=== PATIENT | male | born 1945 | race Caucasian/White ===

== ENCOUNTER 2019-02-18 21:53 | Emergency (ER) | payer OTHER ==
[~2019-02-18] VITALS: Ht 177.8 cm; Wt 81.6 kg
[2019-02-18 22:11] VITALS: BP 125/65
== END 2019-02-19 02:13 | disposition left against medical advice (07) ==
LOC: ER 22:00
DX: R05 Cough (principal); Z53.21 Procedure and treatment not carried out due to patient leaving prior to being seen by health care provider

== ENCOUNTER 2019-09-05 15:52 | Emergency (ER) | payer OTHER ==
[~2019-09-05] VITALS: Ht 177.8 cm; Wt 79.4 kg
[2019-09-05 17:30] VITALS: BP 134/76
[2019-09-05] MEDS ORDERED: methylPREDNISolone SOD SUCC 125 MG/2 ML VL IM ONE (17:30)
== END 2019-09-05 17:53 | disposition home or self-care (01) ==
LOC: ER 15:52
DX: M48.02 Spinal stenosis, cervical region (principal); M54.12 Radiculopathy, cervical region; F17.210 Nicotine dependence, cigarettes, uncomplicated
CPT/HCPCS: 72040; 96372; 99283; J2930

== ENCOUNTER 2019-10-29 19:18 | Inpatient (IN) | payer OTHER ==
[~2019-10-29] VITALS: Ht 175.3 cm; Wt 90.3 kg
[2019-10-29] MEDS ORDERED: SODIUM CHLORIDE 0.9% 500 ML IVB ONE (19:28)
[2019-10-29 19:56] LABS: Basophils # (auto) 0.1 10 ^3/uL (0-0.2); Basophils % (auto) 0.6 % (0.0-2.0); Eosinophils # (auto) 0.5 10 ^3/uL (0-0.8); Eosinophils % (auto) 5.2 % (0.0-7.0); Hematocrit 39.6 % (41.0-53.0); Hemoglobin 13.2 g/dL (13.5-17.5); Lymphocytes # (auto) 1.5 10 ^3/uL (0.4-5.4); Mean Corpuscular Hemoglobin 32.1 pg (28.0-32.0); Mean Corpuscular Hgb Conc. 33.3 g/dL (32.0-36.0); Mean Corpuscular Volume 96.5 fL (80.0-100.0); Monocytes # (auto) 0.8 10 ^3/uL (0-1.3); Monocytes % (auto) 8.1 % (0.0-12.0); Neutrophils # (auto) 6.7 10 ^3/uL (1.6-8.6); Neutrophils % (auto) 70.1 % (37.0-80.0); Platelet Count (auto) 259 10^3/uL (140-450); Red Cell Distribution Width 13.9 % (11.8-14.3); White Blood Cell 9.6 10^3/uL (4.4-10.8)
[2019-10-29 20:15] LABS: Alanine Aminotransferase 21 U/L (16-61); Albumin 3.4 g/dL (3.4-5.0); Anion Gap 4 (5-15); Aspartate Aminotransferase 18 U/L (15-37); BUN/Creatinine Ratio 25.5; Blood Alcohol < 3.0 mg/dL (0-5); Blood Urea Nitrogen 28 mg/dL (7-18); Calcium 8.9 mg/dL (8.5-10.1); Carbon Dioxide 30 mmol/L (21-32); Chloride 109 mmol/L (98-107); GFR African American 84 mL/min; GFR Non-African American 70 mL/min; Glucose 95 mg/dL (74-106); Magnesium 1.8 mg/dL (1.6-2.6); Potassium 4.4 mmol/L (3.5-5.1); Sodium 143 mmol/L (136-145)
[2019-10-29 20:20] LABS: Alkaline Phosphatase 98 U/L (45-117); Bilirubin, Total 0.5 mg/dL (0.2-1.0); Total Protein 7.1 g/dL (6.4-8.2)
[2019-10-29] MEDS ORDERED: NITROGLYCERIN 0.4 MG SL TAB SL PRN (21:30)
[2019-10-29] MEDS ORDERED: MORPHINE SULF INJ 2 MG/ML SYRINGE 1ML IV PRN (21:30)
[2019-10-29] MEDS: SODIUM CHLORIDE 0.9% 1,000 ML IV SCH (21:30)
[2019-10-29] MEDS ORDERED: ONDANSETRON HCL 4 MG/2 ML VIAL IV PRN (21:30)
[2019-10-29 21:51] VITALS: BP 146/52
[2019-10-29] MEDS: FAMOTIDINE 20 MG TAB PO SCH (22:12)
[2019-10-29 22:43] LABS: Urine Bacteria NONE SEEN /hpf (None Seen); Urine Blood Negative /uL (Negative); Urine Specific Gravity 1.025 (1.001-1.035); Urine WBC <1 /hpf (0 - 3)
--- NOTE | 2019-10-29 22:51 | NUR ---
Telemetry admit from ER VILLAREALMOI Baker admitted to Telemetry unit after SBAR received. Patient oriented to Bridgett Chaudhary, primary RN, unit, room, bed, and unit policies regarding patient care and visiting hours. Patient now on continuous telemetry monitoring, tele box # [id number] and telemetry reading on arrival to unit is . Patient placed on bedside oxygen, weighed by bedscale and encouraged to call if they need something. All questions and concerns addressed, patien confused. Note:
[2019-10-29 22:56] LABS: Alcohol, Urine < 3.0 mg/dL (0-10); Amphetamine Screen, Urine NEGATIVE (NEGATIVE); Barbiturate Scree,Urine NEGATIVE (NEGATIVE); Benzodiazephine Screen, Urine NEGATIVE (NEGATIVE); Cannabinoid Screen, Urine NEGATIVE (NEGATIVE); Cocaine Screen, Urine NEGATIVE (NEGATIVE); Opiate Scree,Urine NEGATIVE (NEGATIVE); Phencyclidine Screen, Urine NEGATIVE (NEGATIVE)
[2019-10-30 05:04] VITALS: BP 120/78
[2019-10-30 07:29] LABS: BUN/Creatinine Ratio 30.9; Calcium 8.2 mg/dL (8.5-10.1); Potassium 3.7 mmol/L (3.5-5.1)
--- NOTE | 2019-10-30 07:30 | NUR ---
Opening Shift Note Assumed care of patient, awake and alert. No S/S of distress/SOB or pain. Instructed on POC and to call for assistance bed at lowest height and bed rails up x2 patient with sitter PRN, will continue to monitor for changes Q1hr and PRN.
[2019-10-30 08:30] VITALS: BP 129/65
[2019-10-30] MEDS: FAMOTIDINE 20 MG TAB PO SCH ×2 (10:07→21:36)
[2019-10-30] MEDS: SODIUM CHLORIDE 0.9% 1,000 ML IV SCH (10:59)
[2019-10-30 14:30] VITALS: BP 131/79
--- NOTE | 2019-10-30 15:24 | NUR ---
THE ORTHOPEDICS PEDIATRIC PHYSICIAN CALLED AND STATED THAT A MISS[facility]ERSONS REPORT WAS FILED ON THE PATIENT. I INFORMED THEM THAT THE PATIENT IS HERE AT [facility]. ALSO INFORMED THE ORTHOPEDICS PEDIATRIC PHYSICIAN THAT HE WAS FOUND ALTERED AND BROUGHT TO THE HOSPITAL.
--- NOTE | 2019-10-30 15:30 | NUR ---
Sister Naida telephone number . Naida states that [facility] CVA. She [facility] because she can no longer take care of him. Sister states that the patient is combative with her and her .
[2019-10-30 16:45] LABS: INR 1.03 (0.9-1.15); Partial Thromboplastin Time 30.3 sec (23.0-31.2)
[2019-10-30 17:08] VITALS: BP 124/73
[2019-10-30 22:30] VITALS: BP 134/69
[2019-10-31] MEDS: SODIUM CHLORIDE 0.9% 1,000 ML IV SCH ×2 (00:10→13:12)
[2019-10-31 05:07] VITALS: BP 138/74
--- NOTE | 2019-10-31 07:28 | NUR ---
Opening Shift Note Received report on the patient. Awake lying in bed. Patient shows no signs of distress at this time. Discussed plan of care with the patient. Bed in lowest position, side rails up x2, and the call light is within reach.
[2019-10-31 09:00] VITALS: BP 131/70
[2019-10-31] MEDS: FAMOTIDINE 20 MG TAB PO SCH ×2 (09:56→21:26)
--- NOTE | 2019-10-31 10:23 | NUR ---
Dr Weiner at bedside. New orders received.
[2019-10-31 12:33] VITALS: BP 128/66
[2019-10-31] MEDS ORDERED: amLODIPine BESYLATE 5 MG TAB PO ONE (13:45)
[2019-10-31] MEDS ORDERED: ASPirin 81 mg TAB PO ONE (13:45)
[2019-10-31] MEDS ORDERED: LACTULOSE 20Gm/30ML SOLN PO ONE (13:45)
[2019-10-31 16:50] VITALS: BP 122/70
--- NOTE | 2019-10-31 19:25 | NUR ---
Opening Shift Note Assumed care of patient, AOX1. Sitter at bedside for safety. Fall and safety precautions in place. Call light within reach. No S/S of distress/SOB/pain. Instructed on POC and to call for assist PRN, reinforcement needed. Will continue to monitor for changes Q1hr and PRN.
[2019-10-31 21:10] VITALS: BP 130/74
[2019-10-31] MEDS: ATORVASTATIN 20 MG TAB PO SCH (21:25)
[2019-10-31] MEDS: HYDROcodone-ACET 5/325MG TAB PO PRN (23:44)
[2019-11-01 04:51] VITALS: BP 131/70
--- NOTE | 2019-11-01 06:50 | NUR ---
PT REMOVED IV NOTIFIED BY SITTER THAT PATIENT REMOVED IV BY PULLING IT OUT AT THIS TIME. CATHETER FULLY INTACT. MINIMAL BLEEDING AT SITE, PRESSURE DRESSING APPLIED AND EDUCATED PATIENT TO MAINTAIN PRESSURE DRESSING. ATTEMPTED AND REATTEMPTED TO START NEW IV ACCESS AT THIS TIME. PATIENT BEING VERBALLY ABUSIVE AND REFUSING. PATIENT WITHDRAWING AND COVERING HIS HEAD WITH BLANKETS. PATIENT EDUCATION REINFORCED ON INDICATION/IMPORTANCE OF IV ACCESS, PATIENT CONTINUES TO REFUSE AND BE VERBALLY ABUSIVE. WILL NOTIFY DAY SHIFT RN.
--- NOTE | 2019-11-01 08:51 | NUR ---
PATIENT IS REFUSING IV. WILL TRY AGAIN LATER
[2019-11-01] MEDS: ASPirin 81 mg TAB PO SCH (10:00)
[2019-11-01] MEDS: amLODIPine BESYLATE 5 MG TAB PO SCH (10:00)
[2019-11-01] MEDS: FAMOTIDINE 20 MG TAB PO SCH ×2 (10:00→21:22)
--- NOTE | 2019-11-01 12:59 | NUR ---
Nutrition Assessment Notes Please refer to link for full assessment notes. Est Energy needs: 3163-1154 kcals (20-23 kcal/kgBW) Est Protein needs: 86-95 gms/day (1.0-1.1 gm/kgBW) Will continue to monitor and reassess prn. Addendum: 11/01/19 at [address] Amended: Links added.
[2019-11-01 14:10] VITALS: BP 119/71
[2019-11-01] MEDS: HYDROcodone-ACET 5/325MG TAB PO PRN (15:18)
[2019-11-01 16:39] VITALS: BP 130/71
--- NOTE | 2019-11-01 19:40 | NUR ---
Opening Shift Note Assumed care of patient, AOX1. Patient resistive to care and withdrawn from interactions. Patient refusing IV access despite reinforced education on indication/importance of IV acces. Patient continues to refuse. Patient off tele. Patient sticker replaced and patient now on continuous telemetry monitoring. Sitter at bedside for safety. Fall and safety precautions in place. Call light within reach. No S/S of distress/SOB/pain. Instructed on POC and to call for assist PRN, reinforcement needed. Will continue to monitor for changes Q1hr and PRN.
--- NOTE | 2019-11-01 21:20 | NUR ---
TEMP PATIENT'S ORAL TEMPERATURE 100.6 F. TEMPERATURE IN ROOM IS 78 F. PATIENT COVERED IN MULTIPLE BLANKETS. COOLING MEASURES INITIATED. PATIENT EDUCATED ON INDICATION FOR COOLING MEASURES. WILL CONTINUE TO MONITOR.
[2019-11-01] MEDS: ATORVASTATIN 20 MG TAB PO SCH (21:22)
--- NOTE | 2019-11-01 21:41 | NUR ---
PATIENTS TEMPERATURE IS 100.6 AND COMPLAINING OF A HEADACHE. RN WAS NOTIFIED
[2019-11-01 22:00] VITALS: BP 118/66
[2019-11-01 22:20] VITALS: BP 118/66
--- NOTE | 2019-11-01 22:20 | NUR ---
TEMP RECHECK PATIENT'S ORAL TEMP NOW 98.2 F. BIODIESEL PROCESS CONTROL TECHNICIAN REPORTED THAT PATIENT REPORTED A HEADACHE. HOWEVER, PATIENT WORDS ARE UNCLEAR AND GARBLED AND IS NOT REPORTING A HEADACHE OR PAIN AT THIS TIME. MASTERSON-BUSBY SCORE 0. WILL CONTINUE TO MONITOR.
[2019-11-02 05:00] VITALS: BP 127/70
[2019-11-02 08:00] VITALS: BP 128/66
--- NOTE | 2019-11-02 08:36 | NUR ---
PATIENT REFUSING IV,EDUCATED PATIENT ON RISKS OF NO IV ACCESS. WILL CONTINUE TO MONITOR AND REASSESS PATIENT
[2019-11-02] MEDS: amLODIPine BESYLATE 5 MG TAB PO SCH (08:42)
[2019-11-02] MEDS: ASPirin 81 mg TAB PO SCH (08:42)
[2019-11-02] MEDS: FAMOTIDINE 20 MG TAB PO SCH ×2 (08:42→22:55)
[2019-11-02 09:00] VITALS: BP 153/78
--- NOTE | 2019-11-02 12:41 | NUR ---
I faxed transfer order to [facility].
[2019-11-02 13:00] VITALS: BP 128/64
--- NOTE | 2019-11-02 13:15 | NUR ---
TELEBOX SENT TO ICU TELEBOX REMOVED CLEANED AND SENT TO ICU, JUDGE NOTIFIED
--- NOTE | 2019-11-02 14:24 | NUR ---
I called the [facility] and spoke with Nayely, he said they did receive the transfer order but do not have any beds available at this time. Nayely is aware that patient is now med/surg status and no longer on telemetry. I made Dr. Weiner aware that there are no beds available today.
[2019-11-02 17:00] VITALS: BP 143/69
[2019-11-02] MEDS: ACETAMINOPHEN 325 MG TAB PO PRN ×2 (18:22→18:34)
--- NOTE | 2019-11-02 19:00 | NUR ---
Opening Shift Note Assumed care of patient, awake and alert. No S/S of distress/SOB or pain. Instructed on POC and to callfor assist PRN, will continue to monitor for changes Q1hr and PRN.
[2019-11-02 22:00] VITALS: BP 127/71
[2019-11-02] MEDS: ATORVASTATIN 20 MG TAB PO SCH (22:55)
--- NOTE | 2019-11-03 05:30 | NUR ---
CURSING AND YELLING PATIENT WAS CURSING AND YELLING AT [facility]. HE HAD BEEN IN A GOOD MOOD ALL NIGHT UNTIL 0530.I HELPED [facility] CHANGE THE BED. PATIENT TRIED TO HIT ME 1 TIME. I EXPLAINED THAT WE WERE GOING TO CHANGE THE BED AND COULD HE PLEASE HELP US? HE TRIED TO HELP SOME. WE GOT HIS CHANGED, COMFORTABLE, AND COVERED UP.
[2019-11-03 08:50] VITALS: BP 118/63
--- NOTE | 2019-11-03 09:00 | NUR ---
PT RESPONDED FAVORABLY TO ASSESSMENT. SPEECH IS SLURRED. DIFFICULT TO UNDERSTAND. ALLOWS V/S TAKEN.
--- NOTE | 2019-11-03 10:00 | NUR ---
REFUSES TO TAKE MEDS.
[2019-11-03] MEDS ORDERED: HALOPERIDOL 1 MG TAB PO PRN (10:15)
--- NOTE | 2019-11-03 11:41 | NUR ---
I called the [facility] and spoke with Cyrus regarding bed availability. He said they may have some beds available-he requested today's clinical information to be faxed to him-faxed today's vitals and medication list. I provided him with contact information for Dr. Weiner as well as letting her know that they may be contacting her. Per Cyrus he will present the information to his MD and will give me a call back.
[2019-11-03] MEDS ORDERED: LACTULOSE 20Gm/30ML SOLN PO ONE (13:00)
--- NOTE | 2019-11-03 15:40 | NUR ---
I called [facility] [phone] and spoke with Cyrus, patient will be going to [address] [facility], nurse to call report to [phone] extension [phone], accepting MD is Dr. Mccord-[facility] setting up transportation through [facility]-pick up and delivery driver time 430-5pm-I relayed this information to charge nurse Tala as well as Dr. Weiner.
--- NOTE | 2019-11-03 15:49 | NUR ---
I received a call from Cyrus at the [facility] ([phone])-he said [facility] ([phone]) will be here at 1645 to transport to [facility].
[2019-11-04] MEDS ORDERED: LACTULOSE 20Gm/30ML SOLN PO SCH (10:00)
== END 2019-11-03 17:20 | disposition short-term general hospital (02) | DRG 93 ==
LOC: EDBD 19:18 → ER 19:18 → TELE 19:19 → TELE-WESTW 22:45 → WEST WING 11-02 14:40
PROVIDERS: ADMIT Nurse Practitioner; ATTEND Internal Medicine
DX: G92 Toxic encephalopathy (principal); E86.0 Dehydration; F17.210 Nicotine dependence, cigarettes, uncomplicated; N40.0 Benign prostatic hyperplasia without lower urinary tract symptoms; M47.9 Spondylosis, unspecified; M48.061 Spinal stenosis, lumbar region without neurogenic claudication; M47.896 Other spondylosis, lumbar region; M25.551 Pain in right hip; I10 Essential (primary) hypertension; Z91.19 Patient's noncompliance with other medical treatment and regimen; Z95.0 Presence of cardiac pacemaker; Z59.0 Homelessness; Z86.73 Personal history of transient ischemic attack (TIA), and cerebral infarction without residual deficits
CPT/HCPCS: 36415; 70450; 71045; 71250; 72131; 73502; 80048; 80053; 80307; 80320; 81001; 82140; 83735; 84484; 85025; 85610; 85730; 96360; 96361; G0378

== ENCOUNTER 2023-02-02 14:44 | Inpatient (IN) | payer OTHER ==
[~2023-02-02] VITALS: Ht 170.2 cm; Wt 76.9 kg
[2023-02-02] MEDS ORDERED: PIPERACILLIN-TAZOB 3.375GM 100 ML IV ONE ×2 (15:15→15:57)
[2023-02-02] MEDS ORDERED: SODIUM CHLORIDE 0.9% 1,000 ML IV ONE (15:15)
[2023-02-02 15:33] LABS: Basophils # (auto) 0.1 10 ^3/uL (0-0.2); Basophils % (auto) 1.2 % (0.0-2.0); Eosinophils # (auto) 0.4 10 ^3/uL (0-0.8); Eosinophils % (auto) 5.4 % (0.0-7.0); Hematocrit 38.6 % (41.0-53.0); Hemoglobin 12.8 g/dL (13.5-17.5); Lymphocytes # (auto) 1.2 10 ^3/uL (0.4-5.4); Lymphocytes % (auto) 15.7 % (10.0-50.0); Mean Corpuscular Hemoglobin 31.3 pg (28.0-32.0); Mean Corpuscular Hgb Conc. 33.2 g/dL (32.0-36.0); Mean Corpuscular Volume 94.3 fL (80.0-100.0); Monocytes # (auto) 0.8 10 ^3/uL (0-1.3); Monocytes % (auto) 10.6 % (0.0-12.0); Neutrophils # (auto) 5.2 10 ^3/uL (1.6-8.6); Neutrophils % (auto) 67.1 % (37.0-80.0); Nucleated Red Blood Cells % 0.2 %; Red Blood Cells 4.09 10^6/uL (4.5-5.90); Red Cell Distribution Width 13.1 % (11.8-14.3); White Blood Cell 7.8 10^3/uL (4.4-10.8)
[2023-02-02 15:45] LABS: Magnesium 1.8 mg/dL (1.6-2.6)
[2023-02-02 15:47] LABS: Alanine Aminotransferase 10 U/L (7-40); Albumin 4.2 g/dL (3.2-4.8); Alkaline Phosphatase 97 U/L (46-116); Anion Gap 8 (5-15); Aspartate Aminotransferase 23 U/L (13-40); BUN/Creatinine Ratio 13.3 (10.0-20.0); Blood Urea Nitrogen 18 mg/dL (9-23); Calcium 9.1 mg/dL (8.5-10.1); Carbon Dioxide 26 mmol/L (20-30); Chloride 105 mmol/L (98-107); Glucose 110 mg/dL (74-106); Potassium 4.2 mmol/L (3.5-5.1); Sodium 139 mmol/L (136-145)
[2023-02-02 15:48] LABS: Bilirubin, Total 0.5 mg/dL (0.2-1.0); Total Protein 7.5 g/dL (5.7-8.2)
[2023-02-02 16:24] VITALS: PULSE 69; RESP 15; O2SAT 99
[2023-02-02 20:15] VITALS: PULSE 65; RESP 14; O2SAT 95
[2023-02-02 22:53] LABS: Urine Bacteria NONE SEEN /hpf (None Seen); Urine Blood Negative /uL (Negative); Urine Clarity Clear (Clear); Urine Color Yellow (Yellow); Urine Protein, UAD TRACE (Negative); Urine Specific Gravity 1.026 (1.001-1.035); Urine Urobilinogen Normal (Negative); Urine WBC 2 /hpf (0 - 3); Urine pH 5.5 (5.0-8.0)
[2023-02-02] MEDS ORDERED: TETANUS-DIPTH-ACEL PERTUSSIS 0.5ML SYR Tdap IM ONE (23:00)
[2023-02-03] MEDS ORDERED: LACTATED RINGER'S 1,000 ML IV ONE
[2023-02-03] MEDS ORDERED: ACETAMINOPHEN 325 MG TAB PO PRN
[2023-02-03] MEDS ORDERED: DOCUSATE SOD 100 MG CAP PO PRN
[2023-02-03] MEDS ORDERED: ONDANSETRON HCL 4 MG/2 ML VIAL IV PRN
[2023-02-03] MEDS ORDERED: HYDROcodone-ACET 5/325MG TAB PO PRN
[2023-02-03 05:00] VITALS: BP 129/80; PULSE 61; RESP 14; TEMP 97.3; O2SAT 97
[2023-02-03 05:26] VITALS: BP 129/80; PULSE 61; RESP 14; TEMP 97.3; O2SAT 97
[2023-02-03] MEDS: SODIUM CHLOR 0.9% PF (SALINE LOCK) 10ML VIAL/SYR IV SCH ×3 (06:00→22:00)
[2023-02-03] MEDS ORDERED: PIPERACILLIN-TAZOB 3.375GM 100 ML IV SCH ×2 (08:30)
[2023-02-03] MEDS: ENOXAPARIN SOD 40 MG/0.4 ML SYRINGE SC SCH (09:59)
[2023-02-03 11:11] VITALS: BP 123/74; PULSE 60; RESP 16; TEMP 97.6; O2SAT 98
[2023-02-03 13:29] VITALS: BP 117/97; PULSE 60; RESP 18; TEMP 97.4; O2SAT 99
[2023-02-03 14:13] VITALS: BP 117/97; PULSE 60; RESP 18; TEMP 97.4; O2SAT 99
[2023-02-03 16:51] VITALS: BP 118/90; PULSE 68; RESP 18; TEMP 97.3; O2SAT 97
[2023-02-03] MEDS: Ensure HIGH Protein Chocolate 8oz Bottle PO SCH (18:00)
[2023-02-03] MEDS: PIPERACILLIN-TAZOB 3.375GM 100 ML IV SCH (18:39)
[2023-02-04] VITALS (7 sets, daily range): BP systolic 106–131; BP diastolic 48–70; PULSE 56–79; RESP 16–18; TEMP 97.8–98.3; O2SAT 94–99
[2023-02-04] MEDS: PIPERACILLIN-TAZOB 3.375GM 100 ML IV SCH ×3 (02:16→18:06)
[2023-02-04] MEDS: SODIUM CHLOR 0.9% PF (SALINE LOCK) 10ML VIAL/SYR IV SCH ×3 (06:00→22:00)
[2023-02-04] MEDS: ENOXAPARIN SOD 40 MG/0.4 ML SYRINGE SC SCH (10:51)
[2023-02-04] MEDS: Ensure HIGH Protein Chocolate 8oz Bottle PO SCH ×3 (10:52→18:06)
[2023-02-05] MEDS: PIPERACILLIN-TAZOB 3.375GM 100 ML IV SCH ×3 (02:00→23:26)
[2023-02-05 05:00] VITALS: BP 150/62; PULSE 60; RESP 16; TEMP 98.2; O2SAT 99
[2023-02-05 09:30] VITALS: BP 132/70; PULSE 73; RESP 16; TEMP 97.9; O2SAT 99
[2023-02-05] MEDS: ENOXAPARIN SOD 40 MG/0.4 ML SYRINGE SC SCH (09:33)
[2023-02-05] MEDS: Ensure HIGH Protein Chocolate 8oz Bottle PO SCH ×3 (09:33→18:00)
[2023-02-05] MEDS: SODIUM CHLORIDE 0.9% 1,000 ML IV SCH ×3 (11:00→23:26)
[2023-02-05 12:58] VITALS: BP 96/44; PULSE 60; RESP 15; TEMP 97.9; O2SAT 97
[2023-02-05] MEDS: SODIUM CHLOR 0.9% PF (SALINE LOCK) 10ML VIAL/SYR IV SCH ×2 (14:54→21:53)
[2023-02-05 16:48] VITALS: BP 142/76; PULSE 76; RESP 15; TEMP 97.9; O2SAT 94
[2023-02-05 20:00] VITALS: PULSE 60; RESP 18; O2SAT 95
[2023-02-05 22:00] VITALS: BP 103/43; PULSE 60; RESP 18; TEMP 98.9; O2SAT 95
[2023-02-05] MEDS ORDERED: PIPERACILLIN-TAZOB 3.375GM 100 ML IV SCH (22:00)
[2023-02-06 05:00] VITALS: BP 138/76; PULSE 69; RESP 18; TEMP 97.5; O2SAT 99
[2023-02-06] MEDS: SODIUM CHLOR 0.9% PF (SALINE LOCK) 10ML VIAL/SYR IV SCH (06:17)
[2023-02-06] MEDS ORDERED: CEPH500C PO (08:47)
[2023-02-06] MEDS ORDERED: CLIN300C70 PO ×2 (08:47→13:44)
[2023-02-06] MEDS ORDERED: HYDR-4902 PO ×2 (08:47→13:44)
[2023-02-06 09:00] VITALS: BP 138/82; PULSE 68; RESP 17; TEMP 98.1; O2SAT 94
[2023-02-06] MEDS: PIPERACILLIN-TAZOB 3.375GM 100 ML IV SCH (11:01)
[2023-02-06] MEDS: ENOXAPARIN SOD 40 MG/0.4 ML SYRINGE SC SCH (11:02)
[2023-02-06] MEDS ORDERED: CEPH250C PO (13:44)
== END 2023-02-06 14:10 | disposition home or self-care (01) | DRG 603 ==
LOC: ER 14:44 → OVERFLOW 23:52 → EAST 02-03 04:30
PROVIDERS: ADMIT Internal Medicine; ATTEND Family Medicine
DX: L03.115 Cellulitis of right lower limb (principal); Z59.00 Homelessness unspecified; F17.210 Nicotine dependence, cigarettes, uncomplicated; E86.0 Dehydration; F19.10 Other psychoactive substance abuse, uncomplicated
CPT/HCPCS: 36415; 70450; 71045; 80053; 80320; 81001; 83605; 83690; 83735; 83880; 84484; 85025; 87040; 90715; G0378; J2543

== ENCOUNTER 2024-01-29 23:26 | Emergency (ER) | payer OTHER ==
[~2024-01-29] VITALS: Ht 172.7 cm; Wt 72.7 kg
[~2024-01-29 23:26] MED LIST: CEPH250C PO; CEPH500C PO; CLIN1CAP70 PO; HYDR-4902 PO
[2024-01-29 23:47] VITALS: BP 137/55; PULSE 77; RESP 20; O2SAT 98
--- NOTE | 2024-01-29 23:48 | ED.PDOC ---
History of Present Illness HPI Comments 79-year-old male with no reported PMHx or PSHx presents with a chief complaint of SOB, cough, and nasal congestion x 2 days. Patients friend reports that patient has had a bad cough for the past x 2 days and has been tripoding while breathing. Patient is deaf and non-verbal at this time but is alert. Patient is afebrile at this time at 98.7F orally. Patients friend states that patient has not seen a doctor in years and does not take any medicine for anything. Patient is disheveled. Past [facility] medical records state that patient has previously endorsed methamphetamine use, cigarette use, and is homeless. Time Seen by MD: 23:40 Primary Care Provider: [facility] Reviewed Notes: Medications, Allergies Allergies: Coded Allergies: NO KNOWN ALLERGIES (Unverified , 07/01/13) Home Meds Active Scripts Hydrocodone-Acetaminophen (Hydrocodone Bitartrate/AC 5-325 mg) 1 Tab Tab, 1 TAB PO QID PRN, #20 TAB Prov:CHAPARRITA SANCHEZ MD 02/06/23 Clindamycin Hcl (Clindamycin Hcl) 300 Mg Cap, 1 CAP PO TID, #30 CAP Prov:CHAPARRITA SANCHEZ MD 02/06/23 Cephalexin (KEFLEX CAPSULE) 250 Mg Cp, 1 CAP PO QID, #40 CAP Prov:CHAPARRITA SANCHEZ MD 02/06/23 Hydrocodone-Acetaminophen (Hydrocodone Bitartrate/AC 5-325 mg) 1 Tab Tab, 1 TAB PO QID PRN, #20 TAB Prov:CHAPARRITA SANCHEZ MD 02/06/23 Clindamycin Hcl (Clindamycin Hcl) 300 Mg Cap, 1 CAP PO TID, #30 CAP Prov:CHAPARRITA SANCHEZ MD 02/06/23 Cephalexin Monohydrate (Cephalexin) 500 Mg Cap, 1 CAP PO TID, #30 CAP Prov:CHAPARRITA SANCHEZ MD 02/06/23 Information Source: Friend Mode of Arrival: Ambulatory Severity: Moderate Timing: Days Duration: Since onset Prehospital treatment: None Past Medical History PAST MEDICAL HISTORY: Unobtainable Surgical History: Unobtainable Family History Family History: Unobtainable Social History Smoker: Cigarettes, Greater Than 1 Pack/Day Alcohol: Heavy Drugs: Marijuana, Methamphetamine Lives In: Homeless Constitutional: denies: chills, diaphoresis, fatigue, fever, malaise, sweats, weakness, others EENTM: reports: nose congestion; denies: blurred vision, double vision, ear bleeding, ear discharge, ear drainage, ear pain, ear ringing, eye pain, eye redness, hearing loss, mouth pain, mouth swelling, nasal discharge, nose bleeding, nose pain, photophobia, tearing, throat pain, throat swelling, voice changes, others Respiratory: reports: cough, shortness of breath; denies: hemoptysis, orthopnea, SOB at rest, SOB with excertion, stridor, wheezing, others Cardiovascular: denies: chest pain, dizzy spells, diaphoresis, Dyspnea on exertion, edema, irregular heart beat, left arm pain, lightheadedness, palpitations, PND, syncope, others Gastrointestinal: denies: abdomen distended, abdominal pain, blood streaked bowels, constipated, diarrhea, dysphagia, difficulty swallowing, hematemesis, melena, nausea, poor appetite, poor fluid intake, rectal bleeding, rectal pain, vomiting, others Genitourinary: denies: burning, dysuria, flank pain, frequency, hematuria, incontinence, penile discharge, penile sore, pain, testicle pain, testicle swelling, urgency, others Neurological: denies: dizziness, fainting, headache, left sided numbness, left sided weakness, numbness, paresthesia, pre-existing deficit, right sided numbness, right sided weakness, seizure, speech problems, tingling, tremors, weakness, others Musculoskeletal: denies: back pain, gout, joint pain, joint swelling, muscle pain, muscle stiffness, neck pain, others Integumetry: denies: bruises, change in color, change in hair/nails, dryness, laceration, lesions, lumps, rash, wounds, others Allergic/Immunocompromised: denies: Difficulty Healing, Frequent Infections, Hives, Itching, others Hematologic/Lymphatic: denies: anemia, blood clots, easy bleeding, easy bruising, swollen glands, others Endocrine: denies: excessive hunger, excessive sweating, excessive thirst, excessive urination, flushing, intolerance to cold, intolerance to heat, unexplained weight gain, unexplained weight loss, others Psychiatric: denies: anxiety, bipolar disorder, depression, hopeless, panic disorder, schizophrenia, sleepless, suicidal, others All Other Systems: Reviewed and Negative Physical Exam General Appearance: No Apparent Distress, Normal HEENT: Normal ENT Inspection, Pharynx Normal, TMs Normal Neck: Full Range of Motion, Non-Tender, Normal, Normal Inspection Respiratory: Accessory Muscle Use, Wheezing, Other (TRIPODING) Cardiovascular: No Edema, No JVD, No Murmur, No Gallop, Normal Peripheral Pulses, Regular Rate/Rhythm Breast Exam: Deferred Gastrointestinal: No Organomegaly, Non Tender, No Pulsatile Mass, Normal Bowel Sounds, Soft Genitalia: Deferred Pelvic: Deferred Rectal: Deferred Extremities: No calf tenderness, Normal capillary refill, Normal inspection, Normal range of motion, Non-tender, No pedal edema Musculoskeletal : Apperance: Normal Neurologic: Alert, camelid fiber sorter II-XII nml as Tested, No Motor Deficits, Normal Affect, Normal Mood, No Sensory Deficits Cerebellar Function: Normal Reflexes: Normal Skin: Dry, Normal Color, Warm Lymphatic: No Adenopathy Was a procedure done? Was a procedure done?: No Differential Dx Considerations may include: Viral syndrome, pneumonia, ACS X-Ray, Labs, Meds, VS Vital Signs Date Time Temp Pulse Resp B/P (MAP) Pulse Ox O2 Delivery O2 Flow Rate FiO2 01/29/24 23:47 98.7 77 20 137/55 (82) 98 Lab Test 01/30/24 00:43 01/29/24 23:55 01/29/24 23:53 01/29/24 23:45 Range/Units Troponin I High Sensitivity 8 9 </=54 ng/L White Blood Count 8.4 4.4-10.8 10^3/uL Red Blood Count 4.09 L 4.5-5.90 10^6/uL Hemoglobin 13.5 13.5-17.5 g/dL Hematocrit 39.0 L 41.0-53.0 % Mean Corpuscular Volume 95.3 80.0-100.0 fL Mean Corpuscular Hemoglobin 33.0 H 28.0-32.0 pg Mean Corpuscular Hemoglobin Concent 34.6 32.0-36.0 g/dL Red Cell Distribution Width 12.7 11.8-14.3 % Platelet Count 261 140-450 10^3/uL Mean Platelet Volume 6.3 L 6.9-10.8 fL Neutrophils (%) (Auto) 66.4 37.0-80.0 % Lymphocytes (%) (Auto) 15.8 10.0-50.0 % Monocytes (%) (Auto) 12.2 H 0.0-12.0 % Eosinophils (%) (Auto) 4.7 0.0-7.0 % Basophils (%) (Auto) 0.9 0.0-2.0 % Neutrophils # (Auto) 5.6 1.6-8.6 10 ^3/uL Lymphocytes # (Auto) 1.3 0.4-5.4 10 ^3/uL Monocytes # (Auto) 1.0 0-1.3 10 ^3/uL Eosinophils # (Auto) 0.4 0-0.8 10 ^3/uL Basophils # (Auto) 0.1 0-0.2 10 ^3/uL Nucleated Red Blood Cells 0.0 % Sodium Level 142 136-145 mmol/L Potassium Level 4.0 3.5-5.1 mmol/L Chloride Level 104 98-107 mmol/L Carbon Dioxide Level 32 H 20-31 mmol/L Anion Gap 6 5-15 Blood Urea Nitrogen 20 9-23 mg/dL Creatinine 1.20 0.700-1.30 mg/dL Glomerular Filtration Rate Calc 62 >90 mL/min BUN/Creatinine Ratio 16.7 10.0-20.0 Serum Glucose 121 H 74-106 mg/dL Lactic Acid Level 1.1 0.4-2.0 mmol/L Calcium Level 9.6 8.7-10.4 mg/dL Total Bilirubin 0.6 0.2-1.0 mg/dL Aspartate Amino Transferase (AST) 11 L 13-40 U/L Alanine Aminotransferase (ALT) 13 7-40 U/L Alkaline Phosphatase 87 46-116 U/L B-Type Natriuretic Peptide 86.59 0-100 pg/mL Total Protein 7.0 5.7-8.2 g/dL Albumin 4.4 3.2-4.8 g/dL Urine Color Yellow Yellow Urine Clarity Clear Clear Urine pH 5.5 5.0-9.0 Urine Specific [place] 1.028 1.001-1.035 Urine Protein Trace H Negative Urine Ketones Negative Negative Urine Blood 1+ H Negative /uL Urine Nitrite Negative Negative Urine Bilirubin Negative Negative Urine Urobilinogen 3 H Negative mg/dL Urine Leukocyte Esterase Negative Negative /uL Urine RBC 4 0 - 3 /hpf Urine WBC 2 0 - 3 /hpf Urine Squamous Epithelial Cells Few <5 /hpf Urine Bacteria None seen None Seen /hpf Urine Glucose Normal Normal mg/dL Influenza Type A Antigen Negative Negative Influenza Type B Antigen Negative Negative SARS-CoV-2 Antigen (Rapid) Negative NEGATIVE Time of 1ST Reevaluation: 00:10 Reevaluation 1ST: Unchanged Patient Education/Counseling: Diagnosis, Treatment, Prognosis Family Education/Counseling: Diagnosis, Treatment, Prognosis Departure 1 Departure Time of Disposition: 01:55 (Patient likely with pneumonia however patient eloped from the ER.) Impression: Primary Impression: Shortness of breath Additional Impression: Generalized weakness Disposition: 07 LEFT AWOL/ELOPED Condition: Serious Critical Care Note Critical Care Time?: No Stability Stability form required: No I personally scribed for COLBY BOYLE MD ([email or web address]) on 01/29/24 at 23:48. Electronically submitted by Scar Velez ([email or web address]). COLBY BOYLE MD Jan 29, 2024 23:48
[2024-01-30 00:18] LABS: Basophils # (auto) 0.1 10 ^3/uL (0-0.2); Basophils % (auto) 0.9 % (0.0-2.0); Eosinophils # (auto) 0.4 10 ^3/uL (0-0.8); Eosinophils % (auto) 4.7 % (0.0-7.0); Hemoglobin 13.5 g/dL (13.5-17.5); Lymphocytes # (auto) 1.3 10 ^3/uL (0.4-5.4); Lymphocytes % (auto) 15.8 % (10.0-50.0); Mean Corpuscular Hgb Conc. 34.6 g/dL (32.0-36.0); Mean Corpuscular Volume 95.3 fL (80.0-100.0); Monocytes % (auto) 12.2 % (0.0-12.0); Neutrophils # (auto) 5.6 10 ^3/uL (1.6-8.6); Neutrophils % (auto) 66.4 % (37.0-80.0); Platelet Count (auto) 261 10^3/uL (140-450); Red Blood Cells 4.09 10^6/uL (4.5-5.90); Red Cell Distribution Width 12.7 % (11.8-14.3); White Blood Cell 8.4 10^3/uL (4.4-10.8)
[2024-01-30 00:25] LABS: Urine Bacteria None Seen /hpf (None Seen)
[2024-01-30 00:26] LABS: Urine Blood 1+ /uL (Negative); Urine Clarity Clear (Clear); Urine Color Yellow (Yellow); Urine Protein, UAD TRACE (Negative); Urine Specific Gravity 1.028 (1.001-1.035); Urine Urobilinogen 3 mg/dL (Negative); Urine WBC 2 /hpf (0 - 3); Urine pH 5.5 (5.0-9.0)
[2024-01-30 00:33] LABS: Alanine Aminotransferase 13 U/L (7-40); Albumin 4.4 g/dL (3.2-4.8); Alkaline Phosphatase 87 U/L (46-116); Anion Gap 6 (5-15); BUN/Creatinine Ratio 16.7 (10.0-20.0); Bilirubin, Total 0.6 mg/dL (0.2-1.0); Blood Urea Nitrogen 20 mg/dL (9-23); Calcium 9.6 mg/dL (8.7-10.4); Chloride 104 mmol/L (98-107); Sodium 142 mmol/L (136-145)
[2024-01-30 00:35] LABS: Aspartate Aminotransferase 11 U/L (13-40); Carbon Dioxide 32 mmol/L (20-31); Glucose 121 mg/dL (74-106)
[2024-01-30 01:06] LABS: COVID19 ANTIGEN SOFIA FIA NEGATIVE (NEGATIVE); Rapid Influenza A Negative (Negative); Rapid Influenza B Negative (Negative)
== END 2024-01-30 01:56 | disposition home or self-care (01) ==
LOC: ER 23:26
DX: R06.02 Shortness of breath (principal); R53.1 Weakness; F17.210 Nicotine dependence, cigarettes, uncomplicated; F12.90 Cannabis use, unspecified, uncomplicated; F15.90 Other stimulant use, unspecified, uncomplicated; Z79.899 Other long term (current) drug therapy; Z59.00 Homelessness unspecified; Z20.822 Contact with and (suspected) exposure to COVID-19
CPT/HCPCS: 36415; 80053; 81001; 83605; 83880; 84484; 85025; 87426; 87804

== ENCOUNTER 2024-04-20 13:45 | Inpatient (IN) | payer OTHER ==
[2024-04-20] VITALS (7 sets, daily range): BP systolic 121–149; BP diastolic 75–84; PULSE 62–76; RESP 16–22; TEMP 97.4–98.1; O2SAT 96–99
[~2024-04-20] VITALS: Ht 172.7 cm; Wt 81.0 kg
--- NOTE | 2024-04-20 14:14 | ECG ---
[facility] Test Date: 2024-04-20 Test Time: 14:06:30 Pat Name: MOI VILLAREAL Department: ER Room: 0214T Gender: M Call Center Support Consultant: JULIA : 1945 Requested By: CHARITY YEAGER Order Number: [id number] Reading MD: Joel Vail Measurements Intervals [place] Rate: 75 P: 60 PA: 150 QRS: -92 QRSD: 142 T: 41 QT: 412 QTc: 461 Interpretive Statements Sinus rhythm RBBB and LAFB LVH by voltage Baseline wander in lead(s) II,aVF Electronically Signed On 04-25-2024 17:21:26 PST by Joel Vail Please click the below link to view image of tracing.
--- NOTE | 2024-04-20 14:17 | ED.PDOC ---
SOB-HPI HPI Comments HPI: Poor Historian. 79 y.o heard of hearing male BIB friend, presents to the ED for a chief complaint of SOB associated with a productive cough that started 4 days ago. Friend reports patient is homeless and does not use any oxygen. Patient presents with SPO2 at 90% room air. Patient is a tobacco smoker and per past [facility] medical records, patient has history of methamphetamine use. Patient has chronic speech deficit s/p CVA x 2. Vitals BP: 150/98 HR: 71 Temp: 98.6 F RR: 8 SPO2: 96% on 3 liters oxygen Patient does not take any medications. Past medical history: CVA x2 Past surgical history: Pacemaker. Patient has a large incision at abdominal site but neither friend nor patient know what surgical procedure it is from. Allergies: Denies REVIEW OF SYSTEMS: CONSTITUTIONAL: Denies acute: fever, diaphoresis, chills, HEAD: Denies acute: headache, photophobia Eyes: Denies acute: Double vision, vision loss, eye pain, eye discharge. EARS: Denies acute: tinnitus, hearing loss, ear discharge, ear pain, THROAT: Denies acute: sore throat, swelling, difficulty swallowing , pain with swallowing, change in voice. NECK: Denies acute: neck pain, neck swelling, stiff neck. HEART: Denies acute : chest pain, palpitations, LUNGS: Denies acute: wheezing, hemoptysis ABDOMEN: Denies acute: abdominal pain, Nausea, Vomiting, diarrhea, melena , hematemesis, hematochezia SKIN: Denies acute: rash, redness, lesions, itchiness. EXTREMITIES: Denies acute: calf pain, numbness, tingling, weakness, denies pain in extremity. Denies acute: Low back pain. Neuro: Denies acute: focal neurological deficit, motor or sensory focal neurological deficit, tremors, seizure like activity, confusion, dizziness, change in mental status, loss of bowel or bladder function, cauda equina like symptoms. : Denies acute: dysuria, hematuria, flank pain, increase in urinary frequency. PSYCH: Denies acute: hallucination, suicidal ideation, homicidal ideation. PHYSICAL EXAM: General: [id number]-[id number]-okvioraj acute distress, awake and alert. Hard of hearing Head: normocephalic, atraumatic. Neck: supple, trachea is midline, no swelling. Throat: Normal phonation. Eyes:, no erythema, no purulent discharge, no proptosis, no icterus. Heart: regular rate, regular rhythm, no significant murmur appreciated. Lungs: Wnen-iy-orukhmne apparent respiratory distress, Bilateral wheezing, no rhonchi, no crackles. No stridors Abdomen: non tender to palpation, non distended, soft, no guarding, no rebound, + bowel sounds. Neuro: Awake, Alert, oriented to name, self, situation, follows commands GCS=15. History of slurred speech from a stroke. At baseline. Skin: no petechia, no purpura, no cyanosis, non-pale, not jaundice. Lower extremities: --no - Pitting edema no deformity, no focal swelling, no calf TTP. Makes eye contact. moves all four extremities. Face: no apparent facial droop. Ambulating in the ED independently. ED COURSE: Chief Complaint: Shortness of Breath Time Seen by MD: 14:10 Primary Care Provider: [facility] Reviewed notes: Allergies Information Source: Patient, Friend Mode of Arrival: Ambulatory Past Medical History PAST MEDICAL HISTORY: CVA Surgical History: Pacemaker Family History Family History: Reviewed,noncontributory to illness, Unobtainable Social History Smoker: Cigarettes, Greater Than 1 Pack/Day Alcohol: Heavy Drugs: Marijuana, Methamphetamine Lives In: Homeless Was a procedure done? Was a procedure done?: No Differential Dx Differential Diagnosis: Bronchitis, CHF, COPD, Pneumonia, Respiratory Distress, URI, Other (DDx include ACS, unstable angina, anxiety, PE, pneumothroax, neoplasm, cardiac ischemia, COPD, asthma, CHF, pleural effusion, tobacco abuse, pneumonia, hypoxia, hypercapnia, anemia., infection/sepsis., pulmonary edema. Asthma, Cardiac tamponade, infection.) X-Ray, Labs, Meds, VS Vital Signs Date Time Temp Pulse Resp B/P (MAP) Pulse Ox O2 Delivery O2 Flow Rate FiO2 04/20/24 17:00 66 22 149/73 (98) 95 04/20/24 16:00 63 04/20/24 15:31 98.1 67 17 149/84 99 2.0 28 98.1 04/20/24 15:25 99 Nasal Cannula 2.0 04/20/24 15:25 99 Nasal Cannula* 2 28 04/20/24 15:22 67 04/20/24 14:56 98.1 76 22 149/84 (105) 97 98.1 04/20/24 14:42 76 22 97 Nasal Cannula* 2 28 04/20/24 14:36 22 98 Nasal Cannula* 04/20/24 14:19 96 Nasal Cannula* 3 04/20/24 14:19 98.6 71 8 150/98 (115) 95 04/20/24 14:06 75 Lab Test 04/20/24 16:00 04/20/24 14:40 04/20/24 14:21 Range/Units Troponin I High Sensitivity 11 10 </=54 ng/L Influenza Type A Antigen Negative Negative Influenza Type B Antigen Negative Negative SARS-CoV-2 Antigen (Rapid) Negative NEGATIVE White Blood Count 9.8 4.4-10.8 10^3/uL Red Blood Count 4.56 4.5-5.90 10^6/uL Hemoglobin 14.7 13.5-17.5 g/dL Hematocrit 42.9 41.0-53.0 % Mean Corpuscular Volume 94.2 80.0-100.0 fL Mean Corpuscular Hemoglobin 32.2 H 28.0-32.0 pg Mean Corpuscular Hemoglobin Concent 34.2 32.0-36.0 g/dL Red Cell Distribution Width 13.4 11.8-14.3 % Platelet Count 218 140-450 10^3/uL Mean Platelet Volume 6.4 L 6.9-10.8 fL Neutrophils (%) (Auto) 79.4 37.0-80.0 % Lymphocytes (%) (Auto) 8.8 L 10.0-50.0 % Monocytes (%) (Auto) 8.5 0.0-12.0 % Eosinophils (%) (Auto) 2.6 0.0-7.0 % Basophils (%) (Auto) 0.7 0.0-2.0 % Neutrophils # (Auto) 7.8 1.6-8.6 10 ^3/uL Lymphocytes # (Auto) 0.9 0.4-5.4 10 ^3/uL Monocytes # (Auto) 0.8 0-1.3 10 ^3/uL Eosinophils # (Auto) 0.3 0-0.8 10 ^3/uL Basophils # (Auto) 0.1 0-0.2 10 ^3/uL Nucleated Red Blood Cells 0.1 % Prothrombin Time 11.3 9.3-11.8 sec Prothrombin Time INR 1.07 0.9-1.15 Activated Partial Thromboplast Time 31.8 24.5-34.5 SEC D-Dimer, Quantitative 0.38 0.0-0.49 mg/L FEU Sodium Level 139 136-145 mmol/L Potassium Level 4.5 3.5-5.1 mmol/L Chloride Level 102 98-107 mmol/L Carbon Dioxide Level 30 20-31 mmol/L Anion Gap 7 5-15 Blood Urea Nitrogen 19 9-23 mg/dL Creatinine 1.28 0.700-1.30 mg/dL Glomerular Filtration Rate Calc 57 >90 mL/min BUN/Creatinine Ratio 14.8 10.0-20.0 Serum Glucose 87 74-106 mg/dL Lactic Acid Level 0.8 0.4-2.0 mmol/L Calcium Level 9.7 8.7-10.4 mg/dL Magnesium Level 1.8 1.6-2.6 mg/dL Total Bilirubin 1.6 H 0.2-1.0 mg/dL Aspartate Amino Transferase (AST) 23 13-40 U/L Alanine Aminotransferase (ALT) 13 7-40 U/L Alkaline Phosphatase 110 46-116 U/L B-Type Natriuretic Peptide 87.34 0-100 pg/mL Total Protein 7.2 5.7-8.2 g/dL Albumin 4.6 3.2-4.8 g/dL Lipase 30 12-53 U/L Plasma/Serum Blood Alcohol 7.0 <10 mg/dL Current Medications Medications (Trade) Dose Ordered Sig/Aziza Route Start Time Stop Time Status Last Admin Albuterol (Ventolin Medneb) 2.5 mg ONCE ONCE NEB 04/20/24 14:30 04/20/24 14:31 DC 04/20/24 14:36 Ipratropium [place] (Atrovent Medneb) 1 mg ONCE ONCE NEB 04/20/24 14:30 04/20/24 14:31 DC 04/20/24 14:36 Methylprednisolone Sodium Succinate (Solu Medrol) 125 mg ONCE ONCE IV 04/20/24 14:30 04/20/24 14:31 DC 04/20/24 14:46 Famotidine (Pepcid Injection) 20 mg ONCE ONCE IV 04/20/24 16:15 04/20/24 16:16 DC 04/20/24 16:[address] [address] Ph: [phone] DIAGNOSTIC IMAGING Diagnostic Imaging Report : [id number] Signed PATIENT: MOI VILLAREAL ACCT: [id number] UNIT: [id number] : 1945 LOC: ER ROOM / BED: / AGE / SEX: 79 / M ADM STATUS: REG ER SERVICE 1411 ORDERING PHYSICIAN: CHARITY YEAGER DO PROCEDURE(s): CXRP - CHEST PORTABLE REASON: sob ORDER NUMBER(s): [id number], ACCESSION NUMBER(s): [id number] CHEST RADIOGRAPH Indication: sob Technique: Single frontal view of the chest was obtained Comparison: XY CHEST PORTABLE on DOS: 02/02/23, CHEST PORTABLE on DOS: 10/29/19 FINDINGS: Lines and Tubes: Tubular structure and what appears to be a wire line overlying the right lower lung field. Correlate clinically. Dual-chamber pacemaker in place with pulse generator over the left chest. Lungs: Increasing interstitial pulmonary markings in the right base may represent developing infiltrate. This does appear different than 02/02/2023. Pleura: No effusion. No pneumothorax. Cardiomediastinal contours: Unremarkable Bones: No acute osseous abnormality. IMPRESSION: 1. Possibly increasing interstitial infiltrate right base recommend follow-up. 2. Tubular structure and wire overlying the right lower lung field etiology uncertain correlate clinically. ATED BY: ROYCE SR Jr., DO DICTATED DATE/TIME: 04/20/241453 SIGNED BY: ROYCE SR Jr., DO SIGNED DATE/TIME: 04/20/241453 CC: Time of 1ST Reevaluation: 14:12 Reevaluation 1ST: Unchanged Time of 2ND Reevaluation: 20:49 Reevaluation 2ND: Improved Patient Education/Counseling: Diagnosis, Treatment Family Education/Counseling: Other Comments Patient presented with the above HPI.------workup was initiated. patient was found with the above mentioned diagnosis. the following medications were ordered: please refer to order lists of meds and tests obtained by myself Dr. Yeager. Patient ED course and VS have been stabilized. Patient has been reassessed in the ED and remained in a stable condition. Pertinent incidental findings were discussed with the patient and/or family. Patient/family voices understanding and is agreeable with plan. Patient has been observed in the ED adequate length of time to insure improvement/stability. Escalation of care considered: Consideration of escalation to observation or admission Patient was ADMITTED to the medicine team for further evaluation and treatment of their presentation. All the reports of any imaging studies that were ordered by myself were reviewed by myself. Departure 1 Departure Time of Disposition: 14:33 Impression: Primary Impression: Acute respiratory distress Additional Impressions: Dyspnea Hypoxemia Pneumonia Disposition: ADMITTED INPATIENT Admit to: Tele Condition: Guarded Discharged With: Self Critical Care Note Critical Care Time?: Yes (45 min-critical care time only) I personally scribed for CHARITY YEAGER DO ([email or web address]) on 04/20/24 at 14:17. Electronically submitted by Yeni Quinn ([facility]). I personally scribed for CHARITY YEAGER DO ([email or web address]) on 04/20/24 at 14:18. El ectronically submitted by Yeni Quinn ([facility]). I personally scribed for CHARITY YEAGER DO ([email or web address]) on 04/20/24 at 14:27. Electr onically submitted by Yeni Quinn ([facility]). I personally scribed for CHARITY YEAGER DO ([email or web address]) on 04/20/24 at 16:51. Electronically submitted by Yeni Quinn ([facility]). I personally scribed for CHARITY YEAGER DO ([email or web address]) on 04/20/24 at 19:55. Electronically submitted by Yeni Quinn ([facility]). CHARITY YEAGER DO Apr 20, 2024 14:17
[2024-04-20] MEDS: ALBUTEROL SULF 2.5 MG/0.5ML(0.5%) NEB SOLN NEB ONE (14:36)
[2024-04-20] MEDS: IPRATROPIUM BROM 0.5 MG/2.5ML INH SOL NEB ONE (14:36)
[2024-04-20] MEDS: methylPREDNISolone SOD SUCC 125 MG/2 ML VL IV ONE (14:46)
[2024-04-20 14:55] LABS: Basophils # (auto) 0.1 10 ^3/uL (0-0.2); Basophils % (auto) 0.7 % (0.0-2.0); Eosinophils # (auto) 0.3 10 ^3/uL (0-0.8); Eosinophils % (auto) 2.6 % (0.0-7.0); Hematocrit 42.9 % (41.0-53.0); Hemoglobin 14.7 g/dL (13.5-17.5); Lymphocytes # (auto) 0.9 10 ^3/uL (0.4-5.4); Lymphocytes % (auto) 8.8 % (10.0-50.0); Mean Corpuscular Hemoglobin 32.2 pg (28.0-32.0); Mean Corpuscular Hgb Conc. 34.2 g/dL (32.0-36.0); Mean Corpuscular Volume 94.2 fL (80.0-100.0); Monocytes # (auto) 0.8 10 ^3/uL (0-1.3); Monocytes % (auto) 8.5 % (0.0-12.0); Neutrophils # (auto) 7.8 10 ^3/uL (1.6-8.6); Neutrophils % (auto) 79.4 % (37.0-80.0); Nucleated Red Blood Cells % 0.1 %; Platelet Count (auto) 218 10^3/uL (140-450); Red Blood Cells 4.56 10^6/uL (4.5-5.90); Red Cell Distribution Width 13.4 % (11.8-14.3); White Blood Cell 9.8 10^3/uL (4.4-10.8)
--- NOTE | 2024-04-20 14:57 | DVH ---
CHEST RADIOGRAPH Indication: sob Technique: Single frontal view of the chest was obtained Comparison: XY CHEST PORTABLE on DOS: 02/02/23, CHEST PORTABLE on DOS: 10/29/19 FINDINGS: Lines and Tubes: Tubular structure and what appears to be a wire line overlying the right lower lung field. Correlate clinically. Dual-chamber pacemaker in place with pulse generator over the left ches t. Lungs: Increasing interstitial pulmonary markings in the right base may represent developing infiltra te. This does appear different than 02/02/2023. Pleura: No effusion. No pneumothorax. Cardiomediastinal contours: Unremarkable Bones: No acute osseous abnormality. IMPRESSION: 1. Possibly increasing interstitial infiltrate right base recommend follow-up. 2. Tubular structure and wire overlying the right lower lung field etiology uncertain correlate clini tyrell.
[2024-04-20 15:11] LABS: INR 1.07 (0.9-1.15); Partial Thromboplastin Time 31.8 SEC (24.5-34.5); Prothrombin Time 11.3 sec (9.3-11.8)
[2024-04-20] MEDS ORDERED: ONDANSETRON HCL 4 MG/2 ML VIAL IV PRN (15:15)
[2024-04-20] MEDS ORDERED: ACETAMINOPHEN 325 MG TAB PO PRN (15:15)
--- NOTE | 2024-04-20 15:23 | ECG ---
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
[2024-04-20 15:24] LABS: Alanine Aminotransferase 13 U/L (7-40); Albumin 4.6 g/dL (3.2-4.8); Alkaline Phosphatase 110 U/L (46-116); Anion Gap 7 (5-15); Aspartate Aminotransferase 23 U/L (13-40); BUN/Creatinine Ratio 14.8 (10.0-20.0); Blood Urea Nitrogen 19 mg/dL (9-23); Calcium 9.7 mg/dL (8.7-10.4); Carbon Dioxide 30 mmol/L (20-31); Chloride 102 mmol/L (98-107); Glucose 87 mg/dL (74-106); Magnesium 1.8 mg/dL (1.6-2.6); Potassium 4.5 mmol/L (3.5-5.1); Sodium 139 mmol/L (136-145); Total Protein 7.2 g/dL (5.7-8.2)
[2024-04-20 15:26] LABS: Bilirubin, Total 1.6 mg/dL (0.2-1.0)
[2024-04-20 15:39] LABS: Lipase 30 U/L (12-53)
[2024-04-20 15:42] LABS: COVID19 ANTIGEN SOFIA FIA NEGATIVE (NEGATIVE); Rapid Influenza A Negative (Negative); Rapid Influenza B Negative (Negative)
[2024-04-20] MEDS: FAMOTIDINE (10MG/ML) 2ML VL IV ONE (16:28)
--- NOTE | 2024-04-20 17:24 | DVHHP2 ---
History of Present Illness Reason for Visit: Acute respiratory failure History of Present Illness The patient is a 79-year-old male with past medical history of CVA presented to [facility] ED with complaint of shortness of breaths for the past 4 days. Patient's symptoms progressively get worse with productive cough, weakness, getting worse that prompted this visit. Patient was seen and evaluated in the ED, laboratory data shows WBC 9.8, platelets 218, sodium 139, potassium 4.5, BUN 19, creatinine 1.25, GFR 57, glucose 87, total bilirubin 1.6, BNP 87.34, troponin 10. Chest x-ray showed possibly increasing interstitial infiltrates right base, tubular structure and wire overlying the right lower lungs field etiology uncertain correlate clinically. Please see medication orders section in the computer. On my assessment, patient denied chest pain, no headache, no dizziness, no diarrhea, no nausea, no vomiting, no fever, no chills. Patient was admitted for further evaluation and medical management. Past Medical History CVA x2 Past Surgical History Pacemaker Family History Reviewed, noncontributory to the management of this case. Past Social History The patient is homeless, smokes cigarettes greater than 1 pack per day, drinks alcohol heavily, uses methamphetamine and marijuana. Review of Systems Constitutional: Yes: Weakness; No: Fever, Chills, Sweats, Malaise, Other Eyes: No: Pain, Vision change, Conjunctivae inflammation, Eyelid inflammation, Other, Redness ENT: No: Ear pain, Ear discharge, Nose pain, Nose discharge, Nose congestion, Mouth pain, Mouth swelling, Throat pain, Throat swelling, Other Respiratory: Cough, Shortness of breath, Other (SOB at rest); No: Dry, SOB with excertion, Wheezing, Hemoptysis, Pleuritic Pain, Sputum, Wheezing Cardiovascular: No: Chest Pain, Palpitations, Orthopnea, Paroxysmal Noc. Dyspnea, Edema, Lt Headedness, Other Gastrointestinal: No: Nausea, Vomiting, Abdominal Pain, Diarrhea, Constipation, Melena, Hematochezia, Other Genitourinary: No Dysuria, No Frequency, No Incontinence, No Hematuria, No Retention, No Other Musculoskeletal: No: other, neck pain, shoulder pain, arm pain, back pain, hand pain, leg pain, foot pain Skin: No: Rash, Lesions, Jaundice, Bruising, Other Neurological: No: Weakness, Numbness, Incoordination, Change in speech, Confusion, Seizures, Other Allergies: Coded Allergies: NO KNOWN ALLERGIES (Unverified , 07/01/13) Medications Current Medications Medications Dose Ordered Sig/Aziza Route Start Time Stop Time Status Last Admin Dose Admin Methylprednisolone Sodium Succinate 40 mg Q8HR IV 04/20/24 22:00 Famotidine 20 mg DAILY IV 04/21/24 10:00 Albuterol 2.5 mg Q4HPRN PRN NEB 04/20/24 15:15 Ipratropium [place] 0.5 mg Q4HPRN PRN NEB 04/20/24 15:15 Sodium Chloride 10 ml Q8HR IV 04/20/24 22:00 Acetaminophen/ Hydrocodone Bitart 1 tab Q4HP PRN PO 04/20/24 15:15 Ondansetron HCl 4 mg Q4HP PRN IV 04/20/24 15:15 Docusate Sodium 100 mg BIDPRN PRN PO 04/20/24 15:15 Acetaminophen 650 mg Q6HP PRN PO 04/20/24 15:15 Exam Vital Signs Vital Signs Date Time Temp Pulse Resp B/P (MAP) Pulse Ox O2 Delivery O2 Flow Rate FiO2 04/20/24 16:00 63 04/20/24 15:31 98.1 17 149/84 99 2.0 28 98.1 04/20/24 15:25 Nasal Cannula General Appearance: Alert, Oriented X3, Cooperative, No acute distress HEENT: Atraumatic, PERRLA, EOMI, Mucous membr. moist/pink Respiratory: Normal air movement, Other (Diminished breath sounds) Cardiovascular: Regular rate, Normal S1, Normal S2, No murmurs Abdominal: Normal bowel sounds, Soft, No tenderness, No hepatospenomegaly, No masses Extremities: No clubbing, No cyanosis, No edema, Normal pulses, No tenderness/swelling Skin: No rashes, No breakdown, No significant lesion Neuro: Normal speech, Normal tone, Sensation intact, Cranial nerves 3-12 NL, Reflexes 2+, Other (Generalized weakness) Psych/Mental Status: Mental status NL, Mood NL Labs/Xrays Labs Test 04/20/24 16:00 04/20/24 14:40 04/20/24 14:21 Range/Units Troponin I High Sensitivity 11 </=54 ng/L Influenza Type A Antigen Negative Negative Influenza Type B Antigen Negative Negative SARS-CoV-2 Antigen (Rapid) Negative NEGATIVE White Blood Count 9.8 4.4-10.8 10^3/uL Red Blood Count 4.56 4.5-5.90 10^6/uL Hemoglobin 14.7 13.5-17.5 g/dL Hematocrit 42.9 41.0-53.0 % Mean Corpuscular Volume 94.2 80.0-100.0 fL Mean Corpuscular Hemoglobin 32.2 H 28.0-32.0 pg Mean Corpuscular Hemoglobin Concent 34.2 32.0-36.0 g/dL Red Cell Distribution Width 13.4 11.8-14.3 % Platelet Count 218 140-450 10^3/uL Mean Platelet Volume 6.4 L 6.9-10.8 fL Neutrophils (%) (Auto) 79.4 37.0-80.0 % Lymphocytes (%) (Auto) 8.8 L 10.0-50.0 % Monocytes (%) (Auto) 8.5 0.0-12.0 % Eosinophils (%) (Auto) 2.6 0.0-7.0 % Basophils (%) (Auto) 0.7 0.0-2.0 % Neutrophils # (Auto) 7.8 1.6-8.6 10 ^3/uL Lymphocytes # (Auto) 0.9 0.4-5.4 10 ^3/uL Monocytes # (Auto) 0.8 0-1.3 10 ^3/uL Eosinophils # (Auto) 0.3 0-0.8 10 ^3/uL Basophils # (Auto) 0.1 0-0.2 10 ^3/uL Nucleated Red Blood Cells 0.1 % Prothrombin Time 11.3 9.3-11.8 sec Prothrombin Time INR 1.07 0.9-1.15 Activated Partial Thromboplast Time 31.8 24.5-34.5 SEC D-Dimer, Quantitative 0.38 0.0-0.49 mg/L FEU Sodium Level 139 136-145 mmol/L Potassium Level 4.5 3.5-5.1 mmol/L Chloride Level 102 98-107 mmol/L Carbon Dioxide Level 30 20-31 mmol/L Anion Gap 7 5-15 Blood Urea Nitrogen 19 9-23 mg/dL Creatinine 1.28 0.700-1.30 mg/dL Glomerular Filtration Rate Calc 57 >90 mL/min BUN/Creatinine Ratio 14.8 10.0-20.0 Serum Glucose 87 74-106 mg/dL Lactic Acid Level 0.8 0.4-2.0 mmol/L Calcium Level 9.7 8.7-10.4 mg/dL Magnesium Level 1.8 1.6-2.6 mg/dL Total Bilirubin 1.6 H 0.2-1.0 mg/dL Aspartate Amino Transferase (AST) 23 13-40 U/L Alanine Aminotransferase (ALT) 13 7-40 U/L Alkaline Phosphatase 110 46-116 U/L B-Type Natriuretic Peptide 87.34 0-100 pg/mL Total Protein 7.2 5.7-8.2 g/dL Albumin 4.6 3.2-4.8 g/dL Lipase 30 12-53 U/L Plasma/Serum Blood Alcohol 7.0 <10 mg/dL PATIENT: MOI VILLAREAL ACCT: [id number] UNIT: [id number] : 1945 LOC: ER ROOM / BED: / AGE / SEX: 79 / M ADM STATUS: REG ER SERVICE 1411 ORDERING PHYSICIAN: CHARITY YEAGER DO PROCEDURE(s): CXRP - CHEST PORTABLE REASON: sob ORDER NUMBER(s): [id number], ACCESSION NUMBER(s): [id number] CHEST RADIOGRAPH Indication: sob Technique: Single frontal view of the chest was obtained Comparison: XY CHEST PORTABLE on DOS: 02/02/23, CHEST PORTABLE on DOS: 10/29/19 FINDINGS: Lines and Tubes: Tubular structure and what appears to be a wire line overlying the right lower lung field. Correlate clinically. Dual-chamber pacemaker in place with pulse generator over the left chest. Lungs: Increasing interstitial pulmonary markings in the right base may represent developing infiltrate. This does appear different than 02/02/2023. Pleura: No effusion. No pneumothorax. Cardiomediastinal contours: Unremarkable Bones: No acute osseous abnormality. IMPRESSION: 1. Possibly increasing interstitial infiltrate right base recommend follow-up. 2. Tubular structure and wire overlying the right lower lung field etiology uncertain correlate clinically. Assessment/Plan Assessment/Plan Acute respiratory distress Dyspnea Generalized weakness Hypoxemia Pneumonia, unspecified organisms Plan 1. Admit to telemetry unit 2. Breathing treatment 3. Pain control management 4. IV antibiotic management 5. Management of fluids and electrolytes 6. Consultation for pulmonology 7. Diagnostic test chest x-ray 8. DVT prophylaxis-on SCDs 9. Repeat labs CBC, CMP in a.m. 10. Home medication reviewed and reconciled 11. Continue with current medical management 12. Treatment plan discussed with patient and RN. Patient verbalized understanding. Plan discussed with: Patient, Other (RN) My Orders Orders - RHONDA CRESPO DNP Procedure Category Date Status Time Methylprednisolone PHA 04/20/24 In Process Sod Succ (Solu Medrol 22:00 Albuterol Medneb PHA 04/20/24 In Process (Ventolin Medneb) 15:15 Ipratropium Medneb PHA 04/20/24 In Process (Atrovent Medneb) 15:15 Allergies YOEL 04/20/24 In Process 15:12 Code Status CODE 04/20/24 Transmitted 15:12 Sodium Chloride Lock PHA 04/20/24 In Process (Saline Lock Ns) 22:00 Oxygen Per Hour RT 04/20/24 Transmitted 15:12 Hydrocodone-Acet PHA 04/20/24 In Process 5/325mg Tab ([place] 15:15 Ondansetron Hcl PHA 04/20/24 In Process (Zofran) 15:15 Docusate Sodium PHA 04/20/24 In Process Capsule (Colace 15:15 Complete Blood Count LAB 04/21/24 Verified 04:00 Comprehensive LAB 04/21/24 Verified Metabolic Panel 04:00 Cardiac DIET 04/20/24 Transmitted Diet-2gna,Lofat,Lochol Dinner Condition: Serious YOEL 04/20/24 In Process 15:12 Acetaminophen Tablet PHA 04/20/24 In Process (Tylenol Tablet) 15:15 Bedrest With Bathroom YOEL 04/20/24 In Process Privileg 15:12 Sequential YOEL 04/20/24 In Process Compression Device Famotidine Injection PHA 04/21/24 In Process (Pepcid Injection) 10:00 Azithromycin 500mg/ PHA 04/21/24 Verified 250ml (Zithromax 50 10:00 Azithromycin 500mg/ PHA 04/20/24 Verified 250ml (Zithromax 50 17:30 Admit ADMIT 04/20/24 Verified 17:22 Nitroglycerin PHA 04/20/24 Verified Sublingual (Ntrostat 17:30 Morphine Sulfate PHA 04/20/24 Verified Injection 17:30 Notify Of Changes [facility] 04/20/24 Verified From Base 17:22 Cupola Tapper For [facility] 04/20/24 Verified 24 Hours 17:22 Emergency Dysrhythmia [facility] 04/20/24 Verified Protocol 17:22 Rhythm Strips Once [facility] 04/20/24 Verified Every Shift 17:22 Oxygen By Nasal RT 04/20/24 Verified Cannula 17:22 Problem List: (1) Acute respiratory distress (2) Dyspnea (3) Generalized weakness (4) Hypoxemia (5) Pneumonia, unspecified organism Date of Service: Apr 20, 2024 Billing Provider: RHONDA CRESPO DNP Common Visit Codes: [id number] INP/OBS CARE (HIGH) RHONDA CRESPO DNP Apr 20, 2024 17:24
[2024-04-20] MEDS ORDERED: hydrALAZINE HCL 20 MG/ML VL IV PRN (17:30)
[2024-04-20] MEDS ORDERED: NITROGLYCERIN 0.4 MG SL TAB SL PRN (17:30)
[2024-04-20] MEDS ORDERED: MORPHINE SULFATE INJ 2 MG/ml SYRG IV PRN (17:30)
[2024-04-20] MEDS: AZITHROMYCIN 500MG/ 250ML 250 ML IV ONE (18:13)
--- NOTE | 2024-04-20 18:37 | DVHINCON2 ---
Date of service: Apr 20, 2024 Referring Physician BILLY Diana Reason for Consultation Acute hypoxic respiratory failure, COPD exacerbation. History of Present Illness A 79-year-old man with past medical history of CVA x2 and hx of pacemaker placement who presents to ED today with complaint of shortness of breath x4 days. Patient's symptoms progressively got worse with productive cough, weakne ss, getting worse that prompted this visit. Denied fever, chills, chest pain, headache, dizziness, N/V/D or other acute complaints. ED workup shows WBC 9.8, platelets 218, sodium 139, potassium 4.5, BUN 19, creatinine 1.25, GFR 57, glucose 87, total bilirubin 1.6, BNP 87.34, troponin 10. Chest x-ray showed possibly increasing interstitial infiltrates at right base. Patient was admitted for further care and pulmonary consultation is requested for evaluation and management due to the above findings. Review of Systems: 14-point review of systems negative unless otherwise noted above. Past Medical History: Cerebrovascular accident x2 Past Surgical History: Pacemaker placement Medications: Reviewed. Allergies: No known drug allergies. Family History: No family history of premature CAD. No family history of lung disorders. Social History: The patient is homeless. Smoker; smokes cigarettes greater than 1 pack per day. He drinks alcohol heavily. Patient uses methamphetamine and marijuana. Family History: Patient reports no known family medical history. Allergies: Coded Allergies: NO KNOWN ALLERGIES (Unverified , 07/01/13) Home Meds Active Scripts Hydrocodone-Acetaminophen (Hydrocodone Bitartrate/AC 5-325 mg) 1 Tab Tab, 1 TAB PO QID PRN, #20 TAB Prov:CHAPARRITA SANCHEZ MD 02/06/23 Clindamycin Hcl (Clindamycin Hcl) 300 Mg Cap, 1 CAP PO TID, #30 CAP Prov:CHAPARRITA SANCHEZ MD 02/06/23 Cephalexin (KEFLEX CAPSULE) 250 Mg Cp, 1 CAP PO QID, #40 CAP Prov:CHAPARRITA SANCHEZ MD 02/06/23 Hydrocodone-Acetaminophen (Hydrocodone Bitartrate/AC 5-325 mg) 1 Tab Tab, 1 TAB PO QID PRN, #20 TAB Prov:CHAPARRITA SANCHEZ MD 02/06/23 Clindamycin Hcl (Clindamycin Hcl) 300 Mg Cap, 1 CAP PO TID, #30 CAP Prov:CHAPARRITA SANCHEZ MD 02/06/23 Cephalexin Monohydrate (Cephalexin) 500 Mg Cap, 1 CAP PO TID, #30 CAP Prov:CHAPARRITA SANCHEZ MD 02/06/23 Current Medications Current Medications Medications (Trade) Dose Ordered Sig/Aziza Route PRN Reason Start Time Stop Time Status Last Admin Methylprednisolone Sodium Succinate (Solu Medrol) 40 mg Q8HR IV 04/20/24 22:00 Famotidine (Pepcid Injection) 20 mg DAILY IV 04/21/24 10:00 Albuterol (Ventolin Medneb) 2.5 mg Q4HPRN PRN NEB SHORTNESS OF BREATH 04/20/24 15:15 Ipratropium [place] (Atrovent Medneb) 0.5 mg Q4HPRN PRN NEB SHORTNESS OF BREATH 04/20/24 15:15 Sodium Chloride (Saline Lock Ns) 10 ml Q8HR IV 04/20/24 22:00 Acetaminophen/ Hydrocodone Bitart ([place] 5/325MG Tab) 1 tab Q4HP PRN PO MODERATE PAIN (4-6 PAIN SCALE) 04/20/24 15:15 Ondansetron HCl (Zofran) 4 mg Q4HP PRN IV NAUSEA / VOMITING 04/20/24 15:15 Docusate Sodium (Colace Capsule) 100 mg BIDPRN PRN PO FOR CONSTIPATION 04/20/24 15:15 Acetaminophen (Tylenol Tablet) 650 mg Q6HP PRN PO PAIN SCALE 1-3 OR TEMP>100.4 04/20/24 15:15 Azithromycin 250 ml @ 125 mls/hr DAILY IV 04/21/24 10:00 Nitroglycerin (Ntrostat Sublingual) 0.4 mg Q5MINP PRN SL FOR CHEST PAIN 04/20/24 17:30 Morphine Sulfate 2 mg Q30M PRN IV FOR CHEST PAIN 04/20/24 17:30 Hydralazine HCl (Apresoline Injection) 10 mg Q6HP PRN IV SBP>150 04/20/24 17:30 Ceftriaxone Sodium 50 ml @ 100 mls/hr DAILY@09 IV 04/21/24 09:00 UNV Vital Signs Vital Signs Date Time Temp Pulse Resp B/P (MAP) Pulse Ox O2 Delivery O2 Flow Rate FiO2 04/20/24 18:19 70 17 127/52 (77) 97 3/3/25 15:31 98.1 2.0 28 98.1 04/20/24 15:25 Nasal Cannula Physical Exam Gen.: Patient lying in bed in no apparent distress. On supplemental oxygen. Head: Normocephalic, atraumatic. Eyes: EOMI/PERRLA. Ears: Normal hearing. Normal anatomy. Neck/trachea: Trachea midline, supple. Nose: Normal external anatomy. Mouth: Moist mucous membranes. Chest: Decreased air entry bilaterally. No wheezing or rhonchi. Cardiovascular: Positive S1, positive S2. Regular rate and rhythm. Abdomen: Positive bowel sounds in all 4 quadrants. Soft, non-tender, non- distended. : Deferred. Rectal: Deferred. Skin: Warm, dry. Intact. Extremities: 2+ radial pulses bilaterally. No lower extremity edema. Neuro: Awake, alert, oriented x3. No gross motor or sensory deficits. Cranial nerves II through XII intact. Gait not assessed. Labs/Diagnostic Data Labs Test 04/20/24 17:53 04/20/24 17:47 04/20/24 14:40 04/20/24 14:21 Range/Units Influenza Type A Antigen Negative Negative Influenza Type B Antigen Negative Negative SARS-CoV-2 Antigen (Rapid) Negative NEGATIVE White Blood Count 9.8 4.4-10.8 10^3/uL Red Blood Count 4.56 4.5-5.90 10^6/uL Hemoglobin 14.7 13.5-17.5 g/dL Hematocrit 42.9 41.0-53.0 % Mean Corpuscular Volume 94.2 80.0-100.0 fL Mean Corpuscular Hemoglobin 32.2 H 28.0-32.0 pg Mean Corpuscular Hemoglobin Concent 34.2 32.0-36.0 g/dL Red Cell Distribution Width 13.4 11.8-14.3 % Platelet Count 218 140-450 10^3/uL Mean Platelet Volume 6.4 L 6.9-10.8 fL Neutrophils (%) (Auto) 79.4 37.0-80.0 % Lymphocytes (%) (Auto) 8.8 L 10.0-50.0 % Monocytes (%) (Auto) 8.5 0.0-12.0 % Eosinophils (%) (Auto) 2.6 0.0-7.0 % Basophils (%) (Auto) 0.7 0.0-2.0 % Neutrophils # (Auto) 7.8 1.6-8.6 10 ^3/uL Lymphocytes # (Auto) 0.9 0.4-5.4 10 ^3/uL Monocytes # (Auto) 0.8 0-1.3 10 ^3/uL Eosinophils # (Auto) 0.3 0-0.8 10 ^3/uL Basophils # (Auto) 0.1 0-0.2 10 ^3/uL Nucleated Red Blood Cells 0.1 % Prothrombin Time 11.3 9.3-11.8 sec Prothrombin Time INR 1.07 0.9-1.15 Activated Partial Thromboplast Time 31.8 24.5-34.5 SEC D-Dimer, Quantitative 0.38 0.0-0.49 mg/L FEU Sodium Level 139 136-145 mmol/L Potassium Level 4.5 3.5-5.1 mmol/L Chloride Level 102 98-107 mmol/L Carbon Dioxide Level 30 20-31 mmol/L Anion Gap 7 5-15 Blood Urea Nitrogen 19 9-23 mg/dL Creatinine 1.28 0.700-1.30 mg/dL Glomerular Filtration Rate Calc 57 >90 mL/min BUN/Creatinine Ratio 14.8 10.0-20.0 Serum Glucose 87 74-106 mg/dL Lactic Acid Level 0.8 0.4-2.0 mmol/L Calcium Level 9.7 8.7-10.4 mg/dL Magnesium Level 1.8 1.6-2.6 mg/dL Total Bilirubin 1.6 H 0.2-1.0 mg/dL Aspartate Amino Transferase (AST) 23 13-40 U/L Alanine Aminotransferase (ALT) 13 7-40 U/L Alkaline Phosphatase 110 46-116 U/L B-Type Natriuretic Peptide 87.34 0-100 pg/mL Total Protein 7.2 5.7-8.2 g/dL Albumin 4.6 3.2-4.8 g/dL Lipase 30 12-53 U/L Plasma/Serum Blood Alcohol 7.0 <10 mg/dL Assessment Impression: Acute hypoxic respiratory failure AE COPD Nicotine dependence s/p pacemaker Homelessness Pneumonia likely gram negative Polysubstance use ETOH abuse Plan Supplemental oxygen 4 LPM via NC Keep o2 saturation above 92 % Antibiotics send sputum for gram stain and culture Bronchodilators Steroid course Smoking cessation discussed for greater than 10 minutes Counseled against substance use Counseled on cessation of alcohol use GI prophylaxis - Pepcid Prognosis: Poor given patient's multiple co-morbidities. Rest of plan per hospitalist and other consultants. Thank you, [employer] Lebron, for allowing me to participate in this patient's care. Further recommendations will depend on the patient's clinical course. Please do not hesitate to contact me if you have any questions or concerns. This medical document was created using an electronic medical record system with [employer] dictation system. Although these documentations are being carefully reviewed, there may still be some phonetic and typographical changes. The errors are purely typographical, due to imperfection on the software program, and do not reflect any compromise in the patient's medical care. Plan discussed with: Patient, Other (RN) ARACELI BUCKLEY MD Apr 20, 2024 18:37
[2024-04-20 18:38] LABS: Urine Bacteria FEW /hpf (None Seen); Urine Blood 2+ /uL (Negative); Urine Clarity Clear (Clear); Urine Color Yellow (Yellow); Urine Mucus FEW (None Seen); Urine Protein, UAD TRACE (Negative); Urine Specific Gravity 1.025 (1.001-1.035); Urine Squamous Epithelial Cell FEW /hpf (<5); Urine Urobilinogen 2 mg/dL (Negative); Urine WBC 1 /HPF (0-3); Urine pH 5.5 (5.0-9.0)
[2024-04-20 18:47] LABS: Opiate Scree,Urine Neg (NEGATIVE); Phencyclidine Screen, Urine Neg (NEGATIVE)
[2024-04-20 18:53] LABS: Amphetamine Screen, Urine Pos (NEGATIVE); Barbiturate Scree,Urine Neg (NEGATIVE); Benzodiazephine Screen, Urine Neg (NEGATIVE); Cannabinoid Screen, Urine Neg (NEGATIVE); Cocaine Screen, Urine Neg (NEGATIVE)
[2024-04-20] MEDS: SODIUM CHLOR 0.9% PF (SALINE LOCK) 10ML VIAL/SYR IV SCH (22:12)
[2024-04-20] MEDS: methylPREDNISolone SOD SUCC 40 MG/ML VL IV SCH (22:12)
[2024-04-21] VITALS (17 sets, daily range): BP systolic 109–154; BP diastolic 50–86; PULSE 57–86; RESP 16–20; TEMP 97.5–98.6; O2SAT 94–100
--- NOTE | 2024-04-21 01:02 | ECG ---
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
[2024-04-21 05:50] LABS: Basophils # (auto) 0 10 ^3/uL (0-0.2); Basophils % (auto) 0.3 % (0.0-2.0); Eosinophils # (auto) 0 10 ^3/uL (0-0.8); Hematocrit 40.2 % (41.0-53.0); Hemoglobin 13.7 g/dL (13.5-17.5); Lymphocytes # (auto) 0.4 10 ^3/uL (0.4-5.4); Mean Corpuscular Hemoglobin 32.1 pg (28.0-32.0); Mean Corpuscular Volume 94.4 fL (80.0-100.0); Monocytes # (auto) 0.1 10 ^3/uL (0-1.3); Monocytes % (auto) 2.6 % (0.0-12.0); Neutrophils # (auto) 4.1 10 ^3/uL (1.6-8.6); Neutrophils % (auto) 88.1 % (37.0-80.0); Nucleated Red Blood Cells % 0.1 %; Platelet Count (auto) 195 10^3/uL (140-450); Red Blood Cells 4.26 10^6/uL (4.5-5.90); Red Cell Distribution Width 13.2 % (11.8-14.3); White Blood Cell 4.7 10^3/uL (4.4-10.8)
[2024-04-21 06:07] LABS: Alanine Aminotransferase 10 U/L (7-40); Albumin 3.9 g/dL (3.2-4.8); Alkaline Phosphatase 83 U/L (46-116); Anion Gap 10 (5-15); Aspartate Aminotransferase 16 U/L (13-40); BUN/Creatinine Ratio 18.4 (10.0-20.0); Bilirubin, Total 0.9 mg/dL (0.2-1.0); Calcium 9.1 mg/dL (8.7-10.4); Carbon Dioxide 23 mmol/L (20-31); Chloride 105 mmol/L (98-107); Potassium 4.5 mmol/L (3.5-5.1); Sodium 138 mmol/L (136-145); Total Protein 6.3 g/dL (5.7-8.2)
[2024-04-21] MEDS: IPRATROPIUM BROM 0.5 MG/2.5ML INH SOL NEB PRN (06:19)
[2024-04-21] MEDS: ALBUTEROL SULF 2.5 MG/0.5ML(0.5%) NEB SOLN NEB PRN (06:19)
[2024-04-21 06:39] LABS: Blood Urea Nitrogen 25 mg/dL (9-23); Glucose 235 mg/dL (74-106)
[2024-04-21] MEDS: AZITHROMYCIN 500MG/ 250ML 250 ML IV SCH (10:00)
[2024-04-21] MEDS: FAMOTIDINE (10MG/ML) 2ML VL IV SCH (10:14)
[2024-04-21] MEDS: cefTRIAXone 1GM/50ML D5W 50 ML IV SCH (10:14)
--- NOTE | 2024-04-21 14:21 | DVHPN2 ---
Reviewed: Care Plan, H&P, Labs, Medications, Previous Orders, Radiology Changes from previous H/P or p: No Changes Eyes: No Pain, No Vision change, No Conjunctivae inflammation, No Eyelid inflammation, No Other, No Redness ENT: No Ear pain, No Ear discharge, No Nose pain, No Nose discharge, No Nose congestion, No Mouth pain, No Mouth swelling, No Throat pain, No Throat swelling, No Other Cardiovascular: No Chest Pain, No Palpitations, No Orthopnea, No Paroxysmal Noc. Dyspnea, No Edema, No Lt Headedness, No Other Respiratory: Cough; No Dry; Shortness of breath; No SOB with excertion, No Wheezing, No Hemoptysis, No Pleuritic Pain, No Sputum; Other (SOB at rest) Gastrointestinal: No Nausea, No Vomiting, No Abdominal Pain, No Diarrhea, No Constipation, No Melena, No Hematochezia, No Other Genitourinary: No Dysuria, No Frequency, No Incontinence, No Hematuria, No Retention, No Other Musculoskeletal: No other, No neck pain, No shoulder pain, No arm pain, No back pain, No hand pain, No leg pain, No foot pain Skin: No Rash, No Lesions, No Jaundice, No Bruising, No Other Objective Vitals Vital Signs Date Time Temp Pulse Resp B/P (MAP) Pulse Ox O2 Delivery O2 Flow Rate FiO2 04/21/24 12:32 98.1 73 16 115/50 (71) 99 98.1 04/21/24 06:19 Nasal Cannula* 3 32 Intake/Output Intake and Output 04/21/24 07:00 Intake Total 550 ml Balance 550 ml Intake Oral 300 ml IV Total 250 ml # Voids 1 Medications Current Medications Medications Dose Ordered Sig/Aziza Route Start Time Stop Time Status Last Admin Dose Admin Methylprednisolone Sodium Succinate 40 mg Q8HR IV 04/20/24 22:00 04/21/24 06:08 40 MG Famotidine 20 mg DAILY IV 04/21/24 10:00 04/21/24 10:14 20 MG Albuterol 2.5 mg Q4HPRN PRN NEB 04/20/24 15:15 04/21/24 06:19 2.5 MG Ipratropium [place] 0.5 mg Q4HPRN PRN NEB 04/20/24 15:15 04/21/24 06:19 0.5 MG Sodium Chloride 10 ml Q8HR IV 04/20/24 22:00 04/21/24 06:08 10 ML Acetaminophen/ Hydrocodone Bitart 1 tab Q4HP PRN PO 04/20/24 15:15 Ondansetron HCl 4 mg Q4HP PRN IV 04/20/24 15:15 Docusate Sodium 100 mg BIDPRN PRN PO 04/20/24 15:15 Acetaminophen 650 mg Q6HP PRN PO 04/20/24 15:15 Azithromycin 250 ml @ 125 mls/hr DAILY IV 04/21/24 10:00 04/21/24 10:00 125 MLS/HR Nitroglycerin 0.4 mg Q5MINP PRN SL 04/20/24 17:30 Morphine Sulfate 2 mg Q30M PRN IV 04/20/24 17:30 Hydralazine HCl 10 mg Q6HP PRN IV 04/20/24 17:30 Ceftriaxone Sodium 50 ml @ 100 mls/hr DAILY@09 IV 04/21/24 09:00 04/21/24 10:14 100 MLS/HR Laboratory Results Laboratory Tests 04/21/24 05:15 Chemistry Test 04/20/24 14:21 04/21/24 05:15 Albumin 4.6 g/dL (3.2-4.8) 3.9 g/dL (3.2-4.8) Calcium Level 9.7 mg/dL (8.7-10.4) 9.1 mg/dL (8.7-10.4) Magnesium Level 1.8 mg/dL (1.6-2.6) Total Protein 7.2 g/dL (5.7-8.2) 6.3 g/dL (5.7-8.2) Coagulation Test 04/20/24 14:21 Prothrombin Time 11.3 sec (9.3-11.8) Prothrombin Time INR 1.07 (0.9-1.15) Activated Partial Thromboplast Time 31.8 SEC (24.5-34.5) D-Dimer, Quantitative 0.38 mg/L FEU (0.0-0.49) Lipid panel Test 04/20/24 14:21 Lipase 30 U/L (12-53) Cardiac Markers Test 04/20/24 14:21 B-Type Natriuretic Peptide 87.34 pg/mL (0-100) LFT Test 04/20/24 14:21 04/21/24 05:15 Alanine Aminotransferase (ALT) 13 U/L (7-40) 10 U/L (7-40) Alkaline Phosphatase 110 U/L (46-116) 83 U/L (46-116) Aspartate Amino Transferase (AST) 23 U/L (13-40) 16 U/L (13-40) Total Bilirubin 1.6 mg/dL (0.2-1.0) H 0.9 mg/dL (0.2-1.0) Urinalysis Test 04/20/24 17:47 Urine Color Yellow (Yellow) Urine Clarity Clear (Clear) Urine pH 5.5 (5.0-9.0) Urine Specific [place] 1.025 (1.001-1.035) Urine Protein Trace (Negative) H Urine Ketones Negative (Negative) Urine Blood 2+ /uL (Negative) H Urine Nitrite Negative (Negative) Urine Bilirubin Negative (Negative) Urine Urobilinogen 2 mg/dL (Negative) H Urine Leukocyte Esterase Negative /uL (Negative) Urine RBC 18 /hpf (0 - 3) Urine Microscopic WBC 1 /HPF (0-3) Urine Squamous Epithelial Cells Few /hpf (<5) Urine Bacteria Few /hpf (None Seen) H Urine Mucus Few (None Seen) Urine Glucose Normal mg/dL (Normal) Labs and/or images reviewed: Labs reviewed by me, Image(s) reviewed by me Assessment/Plan Assessment/Plan Acute hypoxic respiratory failure: Oxygen by nasal cannula Acute right lower lobe community-acquired pneumonia: Rocephin azithromycin albuterol Atrovent Solu-Medrol, consult by Dr. Chaudhary appreciated History of pacemaker D-dimer normal Flu test negative Alyssa test negative Acute generalized weakness Will check blood alcohol level and blood culture Time spent 55 minutes Condition guarded Patient is full code Plan discussed with: Patient Date of Service: Apr 21, 2024 Billing Provider: CHAPARRITA SANCHEZ MD Common Visit Codes: [id number] INP/OBS CARE(HIGH) CHAPARRITA SANCHEZ MD Apr 21, 2024 14:21
[2024-04-21] MEDS: IPRATROPIUM BROM 0.5 MG/2.5ML INH SOL NEB SCH (19:10)
[2024-04-21] MEDS: ALBUTEROL SULF 2.5 MG/0.5ML(0.5%) NEB SOLN NEB SCH (19:10)
--- NOTE | 2024-04-21 21:57 | DVHPN2 ---
Progress Note - Dictate Date Seen: Apr 21, 2024 Medical Necessity Reason Pt with a Central, PICC or Fol: No Subjective Patient seen and examined at bedside. Remains on supplemental oxygen Overnight events reviewed. vital signs Vital Sign Date Time Temp Pulse Resp B/P (MAP) Pulse Ox O2 Delivery O2 Flow Rate FiO2 04/21/24 19:45 61 16 96 Nasal Cannula* 3 32 04/21/24 16:44 98.3 136/74 (94) 98.3 Total Intake and Output 04/20/24 04/20/24 04/21/24 15:00 23:00 07:00 Intake Total 250 ml 300 ml Balance 250 ml 300 ml medications Current Medications Medications Dose Ordered Sig/Aziza Route Start Time Stop Time Status Last Admin Dose Admin Methylprednisolone Sodium Succinate 40 mg Q8HR IV 04/20/24 22:00 04/21/24 21:26 40 MG Famotidine 20 mg DAILY IV 04/21/24 10:00 04/21/24 10:14 20 MG Albuterol 2.5 mg Q4HPRN PRN NEB 04/20/24 15:15 04/21/24 14:20 2.5 MG Ipratropium [place] 0.5 mg Q4HPRN PRN NEB 04/20/24 15:15 04/21/24 14:20 0.5 MG Sodium Chloride 10 ml Q8HR IV 04/20/24 22:00 04/21/24 21:28 10 ML Acetaminophen/ Hydrocodone Bitart 1 tab Q4HP PRN PO 04/20/24 15:15 Ondansetron HCl 4 mg Q4HP PRN IV 04/20/24 15:15 Docusate Sodium 100 mg BIDPRN PRN PO 04/20/24 15:15 Acetaminophen 650 mg Q6HP PRN PO 04/20/24 15:15 Azithromycin 250 ml @ 125 mls/hr DAILY IV 04/21/24 10:00 04/21/24 10:00 125 MLS/HR Nitroglycerin 0.4 mg Q5MINP PRN SL 04/20/24 17:30 Morphine Sulfate 2 mg Q30M PRN IV 04/20/24 17:30 Hydralazine HCl 10 mg Q6HP PRN IV 04/20/24 17:30 Ceftriaxone Sodium 50 ml @ 100 mls/hr DAILY@09 IV 04/21/24 09:00 04/21/24 10:14 100 MLS/HR Albuterol 2.5 mg Q6HR NEB 04/21/24 18:00 04/21/24 19:10 2.5 MG Ipratropium [place] 0.5 mg Q6HR NEB 04/21/24 18:00 04/21/24 19:10 0.5 MG objective Gen.: Patient lying in bed in no apparent distress. On supplemental oxygen. Head: Normocephalic, atraumatic. Eyes: EOMI/PERRLA. Ears: Normal hearing. Normal anatomy. Neck/trachea: Trachea midline, supple. Nose: Normal external anatomy. Mouth: Moist mucous membranes. Chest: Decreased air entry bilaterally. No wheezing or rhonchi. Cardiovascular: Positive S1, positive S2. Regular rate and rhythm. Abdomen: Positive bowel sounds in all 4 quadrants. Soft, non-tender, non- distended. : Deferred. Rectal: Deferred. Skin: Warm, dry. Intact. Extremities: 2+ radial pulses bilaterally. No lower extremity edema. Neuro: Awake, alert, oriented x3. No gross motor or sensory deficits. Cranial nerves II through XII intact. Gait not assessed. laboratory and microbiology Laboratory Tests 04/21/24 05:15 Test 04/21/24 05:15 Range/Units Serum Glucose 235 #H 74-106 mg/dL Assessment/Plan Impression: Acute hypoxic respiratory failure AE COPD Nicotine dependence s/p pacemaker Homelessness Pneumonia likely gram negative Polysubstance use ETOH abuse Events: Remains on supplemental oxygen, 4 LPM -->3 LPM NC Taper O2 as tolerated Continue bronchodilators Continue IV steroids Continue antibiotics Incentive spirometry Swallow eval. Pepcid for GI prophylaxis Labs and imaging reviewed. Rest of plan as noted below. Plan Supplemental oxygen Keep o2 saturation above 92 % Antibiotics send sputum for gram stain and culture Bronchodilators Steroid course Smoking cessation discussed for greater than 10 minutes Counseled against substance use Counseled on cessation of alcohol use GI prophylaxis - Pepcid Prognosis: Poor given patient's multiple co-morbidities. Rest of plan per hospitalist and other consultants. Thank you, BILLY Diana, for allowing me to participate in this patient's care. Further recommendations will depend on the patient's clinical course. Please do not hesitate to contact me if you have any questions or concerns. This medical document was created using an electronic medical record system with [employer] computerized dictation system. Although these documentations are being carefully reviewed, there may still be some phonetic and typographical changes. The errors are purely typographical, due to imperfection on the software program, and do not reflect any compromise in the patient's medical care. Plan discussed with: Patient, Other (MALCOM Ch) ARACELI BUCKLEY MD Apr 21, 2024 21:57
[2024-04-22] VITALS (17 sets, daily range): BP systolic 122–152; BP diastolic 52–91; PULSE 60–81; RESP 14–20; TEMP 97.9–98.3; O2SAT 92–100
--- NOTE | 2024-04-22 11:15 | DVHPN2 ---
Reviewed: Care Plan, H&P, Labs, Medications, Previous Orders, Radiology Changes from previous H/P or p: No Changes Eyes: No Pain, No Vision change, No Conjunctivae inflammation, No Eyelid inflammation, No Other, No Redness ENT: No Ear pain, No Ear discharge, No Nose pain, No Nose discharge, No Nose congestion, No Mouth pain, No Mouth swelling, No Throat pain, No Throat swelling, No Other Cardiovascular: No Chest Pain, No Palpitations, No Orthopnea, No Paroxysmal Noc. Dyspnea, No Edema, No Lt Headedness, No Other Respiratory: Cough; No Dry; Shortness of breath; No SOB with excertion, No Wheezing, No Hemoptysis, No Pleuritic Pain, No Sputum; Other (SOB at rest) Gastrointestinal: No Nausea, No Vomiting, No Abdominal Pain, No Diarrhea, No Constipation, No Melena, No Hematochezia, No Other Genitourinary: No Dysuria, No Frequency, No Incontinence, No Hematuria, No Retention, No Other Musculoskeletal: No other, No neck pain, No shoulder pain, No arm pain, No back pain, No hand pain, No leg pain, No foot pain Skin: No Rash, No Lesions, No Jaundice, No Bruising, No Other Objective Vitals Vital Signs Date Time Temp Pulse Resp B/P (MAP) Pulse Ox O2 Delivery O2 Flow Rate FiO2 04/22/24 09:00 98.0 66 20 138/91 (107) 100 98.0 04/22/24 08:20 Nasal Cannula* 3 32 Intake/Output Intake and Output 04/22/24 07:00 Intake Total 1400 ml Output Total 1800 ml Balance -400 ml Intake Oral 1100 ml IV Total 300 ml Output Urine Total 1800 ml Medications Current Medications Medications Dose Ordered Sig/Aziza Route Start Time Stop Time Status Last Admin Dose Admin Methylprednisolone Sodium Succinate 40 mg Q8HR IV 04/20/24 22:00 04/22/24 05:54 40 MG Famotidine 20 mg DAILY IV 04/21/24 10:00 04/22/24 10:40 20 MG Albuterol 2.5 mg Q4HPRN PRN NEB 04/20/24 15:15 04/21/24 14:20 2.5 MG Ipratropium [place] 0.5 mg Q4HPRN PRN NEB 04/20/24 15:15 04/21/24 14:20 0.5 MG Sodium Chloride 10 ml Q8HR IV 04/20/24 22:00 04/22/24 05:54 10 ML Acetaminophen/ Hydrocodone Bitart 1 tab Q4HP PRN PO 04/20/24 15:15 Ondansetron HCl 4 mg Q4HP PRN IV 04/20/24 15:15 Docusate Sodium 100 mg BIDPRN PRN PO 04/20/24 15:15 Acetaminophen 650 mg Q6HP PRN PO 04/20/24 15:15 Azithromycin 250 ml @ 125 mls/hr DAILY IV 04/21/24 10:00 04/22/24 10:41 125 MLS/HR Nitroglycerin 0.4 mg Q5MINP PRN SL 04/20/24 17:30 Morphine Sulfate 2 mg Q30M PRN IV 04/20/24 17:30 Hydralazine HCl 10 mg Q6HP PRN IV 04/20/24 17:30 Ceftriaxone Sodium 50 ml @ 100 mls/hr DAILY@09 IV 04/21/24 09:00 04/22/24 08:13 100 MLS/HR Albuterol 2.5 mg Q6HR NEB 04/21/24 18:00 04/22/24 06:10 2.5 MG Ipratropium [place] 0.5 mg Q6HR NEB 04/21/24 18:00 04/22/24 06:10 0.5 MG Laboratory Results Laboratory Tests 04/21/24 05:15 Urinalysis Test 04/20/24 17:47 Urine Color Yellow (Yellow) Urine Clarity Clear (Clear) Urine pH 5.5 (5.0-9.0) Urine Specific [place] 1.025 (1.001-1.035) Urine Protein Trace (Negative) H Urine Ketones Negative (Negative) Urine Blood 2+ /uL (Negative) H Urine Nitrite Negative (Negative) Urine Bilirubin Negative (Negative) Urine Urobilinogen 2 mg/dL (Negative) H Urine Leukocyte Esterase Negative /uL (Negative) Urine RBC 18 /hpf (0 - 3) Urine Microscopic WBC 1 /HPF (0-3) Urine Squamous Epithelial Cells Few /hpf (<5) Urine Bacteria Few /hpf (None Seen) H Urine Mucus Few (None Seen) Urine Glucose Normal mg/dL (Normal) Labs and/or images reviewed: Labs reviewed by me, Image(s) reviewed by me Assessment/Plan Assessment/Plan Acute hypoxic respiratory failure: Oxygen by nasal cannula Acute right lower lobe community-acquired pneumonia possibly Gram-negative: Rocephin azithromycin albuterol Atrovent Solu-Medrol, consult by Dr. Chaudhary appreciated Acute exacerbation of COPD Chronic current smoker: Counseling History of pacemaker D-dimer normal Flu test negative Alyssa test negative Chronic current alcohol abuse: Counseling, banana bag Polysubstance abuse including amphetamine Acute generalized weakness Will check blood alcohol level and blood culture Time spent 55 minutes Condition guarded Patient is full code Plan discussed with: Patient My Orders Orders - CHAPARRITA SANCHEZ MD Procedure Category Date Status Time Blood Culture DONOVAN 04/21/24 In Process 14:22 Albuterol Medneb PHA 04/21/24 In Process (Ventolin Medneb) 18:00 Ipratropium Medneb PHA 04/21/24 In Process (Atrovent Medneb) 18:00 Date of Service: Apr 22, 2024 Billing Provider: CHAPARRITA SANCHEZ MD Common Visit Codes: [id number] INP/OBS CARE(HIGH) CHAPARRITA SANCHZE MD Apr 22, 2024 11:15
[2024-04-22] MEDS: HYDROcodone-ACET 5/325MG TAB PO PRN (21:57)
[2024-04-22] MEDS: DOCUSATE SOD 100 MG CAP PO PRN (21:57)
--- NOTE | 2024-04-22 22:54 | DVHPN2 ---
Progress Note - Dictate Date Seen: Apr 22, 2024 Medical Necessity Reason Pt with a Central, PICC or Fol: No Subjective Patient seen and examined at bedside. Remains on supplemental oxygen Overnight events reviewed. vital signs Vital Sign Date Time Temp Pulse Resp B/P (MAP) Pulse Ox O2 Delivery O2 Flow Rate FiO2 04/22/24 21:00 64 18 133/56 (81) 04/22/24 20:00 96 Nasal Cannula* 3 32 04/22/24 17:00 98.3 98.3 Total Intake and Output 04/21/24 04/21/24 04/22/24 15:00 23:00 07:00 Intake Total 300 ml 600 ml 500 ml Output Total 1000 ml 800 ml Balance 300 ml -400 ml -300 ml medications Current Medications Medications Dose Ordered Sig/Aziza Route Start Time Stop Time Status Last Admin Dose Admin Methylprednisolone Sodium Succinate 40 mg Q8HR IV 04/20/24 22:00 04/22/24 21:56 40 MG Famotidine 20 mg DAILY IV 04/21/24 10:00 04/22/24 10:40 20 MG Albuterol 2.5 mg Q4HPRN PRN NEB 04/20/24 15:15 04/21/24 14:20 2.5 MG Ipratropium [place] 0.5 mg Q4HPRN PRN NEB 04/20/24 15:15 04/21/24 14:20 0.5 MG Sodium Chloride 10 ml Q8HR IV 04/20/24 22:00 04/22/24 21:56 10 ML Acetaminophen/ Hydrocodone Bitart 1 tab Q4HP PRN PO 04/20/24 15:15 04/22/24 21:57 1 TAB Ondansetron HCl 4 mg Q4HP PRN IV 04/20/24 15:15 Docusate Sodium 100 mg BIDPRN PRN PO 04/20/24 15:15 04/22/24 21:57 100 MG Acetaminophen 650 mg Q6HP PRN PO 04/20/24 15:15 Azithromycin 250 ml @ 125 mls/hr DAILY IV 04/21/24 10:00 04/22/24 10:41 125 MLS/HR Nitroglycerin 0.4 mg Q5MINP PRN SL 04/20/24 17:30 Morphine Sulfate 2 mg Q30M PRN IV 04/20/24 17:30 Hydralazine HCl 10 mg Q6HP PRN IV 04/20/24 17:30 Ceftriaxone Sodium 50 ml @ 100 mls/hr DAILY@09 IV 04/21/24 09:00 04/22/24 08:13 100 MLS/HR Albuterol 2.5 mg Q6HR NEB 04/21/24 18:00 04/22/24 18:14 2.5 MG Ipratropium [place] 0.5 mg Q6HR NEB 04/21/24 18:00 04/22/24 18:14 0.5 MG objective Gen.: Patient lying in bed in no apparent distress. On supplemental oxygen. Head: Normocephalic, atraumatic. Eyes: EOMI/PERRLA. Ears: Normal hearing. Normal anatomy. Neck/trachea: Trachea midline, supple. Nose: Normal external anatomy. Mouth: Moist mucous membranes. Chest: Decreased air entry bilaterally. No wheezing or rhonchi. Cardiovascular: Positive S1, positive S2. Regular rate and rhythm. Abdomen: Positive bowel sounds in all 4 quadrants. Soft, non-tender, non- distended. : Deferred. Rectal: Deferred. Skin: Warm, dry. Intact. Extremities: 2+ radial pulses bilaterally. No lower extremity edema. Neuro: Awake, alert, oriented x3. No gross motor or sensory deficits. Cranial nerves II through XII intact. Gait not assessed. laboratory and microbiology Laboratory Tests 04/21/24 05:15 Test 04/21/24 05:15 Range/Units Serum Glucose 235 #H 74-106 mg/dL Assessment/Plan Impression: Acute hypoxic respiratory failure Dependence on supplemental oxygen AE COPD Nicotine dependence s/p pacemaker Homelessness Pneumonia likely gram negative Polysubstance use ETOH abuse Events: Remains on supplemental oxygen, 4 LPM NC Taper O2 as tolerated Banana bag, IV fluids Obtain CBC, CMP. Continue bronchodilators Continue IV steroids Continue antibiotics Incentive spirometry Head of bed elevation Aspiration precautions Swallow eval. Pepcid for GI prophylaxis Labs and imaging reviewed. Rest of plan as noted below. Plan Supplemental oxygen Keep o2 saturation above 92 % Antibiotics send sputum for gram stain and culture Bronchodilators Steroid course Smoking cessation discussed for greater than 10 minutes Counseled against substance use Counseled on cessation of alcohol use GI prophylaxis - Pepcid Prognosis: Guarded given patient's multiple co-morbidities. Rest of plan per hospitalist and other consultants. Thank you, [employer] [place], for allowing me to participate in this patient's care. Further recommendations will depend on the patient's clinical course. Please do not hesitate to contact me if you have any questions or concerns. This medical document was created using an electronic medical record system with [employer] dictation system. Although these documentations are being carefully reviewed, there may still be some phonetic and typographical changes. The errors are purely typographical, due to imperfection on the software program, and do not reflect any compromise in the patient's medical care. Plan discussed with: Patient, Other ([facility] Ch) ARACELI BUCKLEY MD Apr 22, 2024 22:54
[2024-04-23] VITALS (15 sets, daily range): BP systolic 114–145; BP diastolic 54–84; PULSE 60–74; RESP 16–18; TEMP 97.4–98.7; O2SAT 94–100
[2024-04-23 07:01] LABS: Basophils # (auto) 0 10 ^3/uL (0-0.2); Eosinophils # (auto) 0 10 ^3/uL (0-0.8); Hematocrit 35.9 % (41.0-53.0); Hemoglobin 12.6 g/dL (13.5-17.5); Lymphocytes # (auto) 0.6 10 ^3/uL (0.4-5.4); Mean Corpuscular Hemoglobin 32.7 pg (28.0-32.0); Mean Corpuscular Hgb Conc. 35.2 g/dL (32.0-36.0); Mean Corpuscular Volume 92.7 fL (80.0-100.0); Monocytes # (auto) 0.3 10 ^3/uL (0-1.3); Monocytes % (auto) 2.4 % (0.0-12.0); Neutrophils # (auto) 10.8 10 ^3/uL (1.6-8.6); Neutrophils % (auto) 92.6 % (37.0-80.0); Platelet Count (auto) 248 10^3/uL (140-450); Red Blood Cells 3.87 10^6/uL (4.5-5.90); Red Cell Distribution Width 13.4 % (11.8-14.3); White Blood Cell 11.7 10^3/uL (4.4-10.8)
[2024-04-23 07:45] LABS: Alanine Aminotransferase 15 U/L (7-40); Alkaline Phosphatase 71 U/L (46-116); Anion Gap 7 (5-15); Aspartate Aminotransferase 15 U/L (13-40); BUN/Creatinine Ratio 31.6 (10.0-20.0); Calcium 9.5 mg/dL (8.7-10.4); Carbon Dioxide 27 mmol/L (20-31); Chloride 103 mmol/L (98-107); Potassium 4.4 mmol/L (3.5-5.1); Sodium 137 mmol/L (136-145); Total Protein 6.4 g/dL (5.7-8.2)
[2024-04-23 07:46] LABS: Bilirubin, Total 0.5 mg/dL (0.2-1.0)
[2024-04-23 07:57] LABS: Blood Urea Nitrogen 31 mg/dL (9-23); Glucose 139 mg/dL (74-106)
--- NOTE | 2024-04-23 10:08 | DVHPN2 ---
Reviewed: Care Plan, H&P, Labs, Medications, Previous Orders, Radiology Changes from previous H/P or p: No Changes Eyes: No Pain, No Vision change, No Conjunctivae inflammation, No Eyelid inflammation, No Other, No Redness ENT: No Ear pain, No Ear discharge, No Nose pain, No Nose discharge, No Nose congestion, No Mouth pain, No Mouth swelling, No Throat pain, No Throat swelling, No Other Cardiovascular: No Chest Pain, No Palpitations, No Orthopnea, No Paroxysmal Noc. Dyspnea, No Edema, No Lt Headedness, No Other Respiratory: Cough; No Dry; Shortness of breath; No SOB with excertion, No Wheezing, No Hemoptysis, No Pleuritic Pain, No Sputum; Other (SOB at rest) Gastrointestinal: No Nausea, No Vomiting, No Abdominal Pain, No Diarrhea, No Constipation, No Melena, No Hematochezia, No Other Genitourinary: No Dysuria, No Frequency, No Incontinence, No Hematuria, No Retention, No Other Musculoskeletal: No other, No neck pain, No shoulder pain, No arm pain, No back pain, No hand pain, No leg pain, No foot pain Skin: No Rash, No Lesions, No Jaundice, No Bruising, No Other Objective Vitals Vital Signs Date Time Temp Pulse Resp B/P (MAP) Pulse Ox O2 Delivery O2 Flow Rate FiO2 04/23/24 08:53 60 16 136/84 98 0.0 21 04/23/24 07:55 Room Air* 04/22/24 17:00 98.3 98.3 Intake/Output Intake and Output 04/23/24 07:00 Intake Total 1250 ml Output Total 1700 ml Balance -450 ml Intake Oral 950 ml IV Total 300 ml Output Urine Total 1700 ml Medications Current Medications Medications Dose Ordered Sig/Aziza Route Start Time Stop Time Status Last Admin Dose Admin Methylprednisolone Sodium Succinate 40 mg Q8HR IV 04/20/24 22:00 04/23/24 05:19 40 MG Famotidine 20 mg DAILY IV 04/21/24 10:00 04/22/24 10:40 20 MG Albuterol 2.5 mg Q4HPRN PRN NEB 04/20/24 15:15 04/21/24 14:20 2.5 MG Ipratropium [place] 0.5 mg Q4HPRN PRN NEB 04/20/24 15:15 04/21/24 14:20 0.5 MG Sodium Chloride 10 ml Q8HR IV 04/20/24 22:00 04/23/24 05:19 10 ML Acetaminophen/ Hydrocodone Bitart 1 tab Q4HP PRN PO 04/20/24 15:15 04/22/24 21:57 1 TAB Ondansetron HCl 4 mg Q4HP PRN IV 04/20/24 15:15 Docusate Sodium 100 mg BIDPRN PRN PO 04/20/24 15:15 04/22/24 21:57 100 MG Acetaminophen 650 mg Q6HP PRN PO 04/20/24 15:15 Azithromycin 250 ml @ 125 mls/hr DAILY IV 04/21/24 10:00 04/22/24 10:41 125 MLS/HR Nitroglycerin 0.4 mg Q5MINP PRN SL 04/20/24 17:30 Morphine Sulfate 2 mg Q30M PRN IV 04/20/24 17:30 Hydralazine HCl 10 mg Q6HP PRN IV 04/20/24 17:30 Ceftriaxone Sodium 50 ml @ 100 mls/hr DAILY@09 IV 04/21/24 09:00 04/23/24 09:11 100 MLS/HR Albuterol 2.5 mg Q6HR NEB 04/21/24 18:00 04/23/24 05:50 2.5 MG Ipratropium [place] 0.5 mg Q6HR NEB 04/21/24 18:00 04/23/24 05:50 0.5 MG Laboratory Results Laboratory Tests 04/23/24 06:29 Chemistry Test 04/23/24 06:29 Albumin 4.0 g/dL (3.2-4.8) Calcium Level 9.5 mg/dL (8.7-10.4) Total Protein 6.4 g/dL (5.7-8.2) LFT Test 04/23/24 06:29 Alanine Aminotransferase (ALT) 15 U/L (7-40) Alkaline Phosphatase 71 U/L (46-116) Aspartate Amino Transferase (AST) 15 U/L (13-40) Total Bilirubin 0.5 mg/dL (0.2-1.0) Urinalysis Test 04/20/24 17:47 Urine Color Yellow (Yellow) Urine Clarity Clear (Clear) Urine pH 5.5 (5.0-9.0) Urine Specific [place] 1.025 (1.001-1.035) Urine Protein Trace (Negative) H Urine Ketones Negative (Negative) Urine Blood 2+ /uL (Negative) H Urine Nitrite Negative (Negative) Urine Bilirubin Negative (Negative) Urine Urobilinogen 2 mg/dL (Negative) H Urine Leukocyte Esterase Negative /uL (Negative) Urine RBC 18 /hpf (0 - 3) Urine Microscopic WBC 1 /HPF (0-3) Urine Squamous Epithelial Cells Few /hpf (<5) Urine Bacteria Few /hpf (None Seen) H Urine Mucus Few (None Seen) Urine Glucose Normal mg/dL (Normal) Microbiology Microbiology Date/Time Source Procedure Growth Status 04/21/24 15:25 Blood Blood Culture - Preliminary NO GROWTH AFTER 24 HOURS OF INCUBATION. Resulted Labs and/or images reviewed: Labs reviewed by me, Image(s) reviewed by me Assessment/Plan Assessment/Plan Acute hypoxic respiratory failure: Oxygen by nasal cannula Acute right lower lobe community-acquired pneumonia possibly Gram-negative: Rocephin azithromycin albuterol Atrovent Solu-Medrol, consult by Dr. Chaudhary appreciated Acute exacerbation of COPD Chronic current smoker: Counseling History of pacemaker D-dimer normal Flu test negative Alyssa test negative Chronic current alcohol abuse: Counseling, banana bag, blood alcohol 7.0 Blood cultures negative Polysubstance abuse including amphetamine Acute generalized weakness Hard of hearing Time spent 55 minutes Condition guarded Patient is full code Plan discussed with: Patient My Orders Orders - CHAPARRITA SANCHEZ MD Procedure Category Date Status Time Complete Blood Count LAB 04/24/24 Verified 04:00 Complete Blood Count LAB 04/25/24 Verified 04:00 Complete Blood Count LAB 04/26/24 Verified 04:00 Comprehensive LAB 04/24/24 Verified Metabolic Panel 04:00 Comprehensive LAB 04/25/24 Verified Metabolic Panel 04:00 Comprehensive LAB 04/26/24 Verified Metabolic Panel 04:00 Date of Service: Apr 23, 2024 Billing Provider: CHAPARRITA SANCHEZ MD Common Visit Codes: [id number] INP/OBS CARE(HIGH) CHAPARRITA SANCHEZ MD Apr 23, 2024 10:08
[2024-04-23] MEDS: FOLIC ACID 1 MG, MAGNESIUM SULF SDV 50% 8 MEQ, MULTIPLE VITAMIN 10 ML, THIAMINE INJ 100... INJ SCH (18:44)
--- NOTE | 2024-04-23 22:57 | DVHPN2 ---
Progress Note - Dictate Date Seen: Apr 23, 2024 Medical Necessity Reason Pt with a Central, PICC or Fol: No Subjective Patient seen and examined at bedside. Remains on supplemental oxygen Overnight events reviewed. vital signs Vital Sign Date Time Temp Pulse Resp B/P (MAP) Pulse Ox O2 Delivery O2 Flow Rate FiO2 04/23/24 18:50 62 16 100 04/23/24 18:42 Room Air 04/23/24 18:42 0 21 04/23/24 12:56 98.7 122/70 (87) 98.7 Total Intake and Output 04/22/24 04/22/24 04/23/24 15:00 23:00 07:00 Intake Total 300 ml 800 ml 150 ml Output Total 700 ml 1000 ml Balance 300 ml 100 ml -850 ml medications Current Medications Medications Dose Ordered Sig/Aziza Route Start Time Stop Time Status Last Admin Dose Admin Methylprednisolone Sodium Succinate 40 mg Q8HR IV 04/20/24 22:00 04/23/24 21:33 40 MG Famotidine 20 mg DAILY IV 04/21/24 10:00 04/23/24 12:45 20 MG Albuterol 2.5 mg Q4HPRN PRN NEB 04/20/24 15:15 04/21/24 14:20 2.5 MG Ipratropium [place] 0.5 mg Q4HPRN PRN NEB 04/20/24 15:15 04/21/24 14:20 0.5 MG Sodium Chloride 10 ml Q8HR IV 04/20/24 22:00 04/23/24 21:32 10 ML Acetaminophen/ Hydrocodone Bitart 1 tab Q4HP PRN PO 04/20/24 15:15 04/22/24 21:57 1 TAB Ondansetron HCl 4 mg Q4HP PRN IV 04/20/24 15:15 Docusate Sodium 100 mg BIDPRN PRN PO 04/20/24 15:15 04/22/24 21:57 100 MG Acetaminophen 650 mg Q6HP PRN PO 04/20/24 15:15 Azithromycin 250 ml @ 125 mls/hr DAILY IV 04/21/24 10:00 04/23/24 12:43 125 MLS/HR Nitroglycerin 0.4 mg Q5MINP PRN SL 04/20/24 17:30 Morphine Sulfate 2 mg Q30M PRN IV 04/20/24 17:30 Hydralazine HCl 10 mg Q6HP PRN IV 04/20/24 17:30 Ceftriaxone Sodium 50 ml @ 100 mls/hr DAILY@09 IV 04/21/24 09:00 04/23/24 09:11 100 MLS/HR Albuterol 2.5 mg Q6HR NEB 04/21/24 18:00 04/23/24 18:45 2.5 MG Ipratropium [place] 0.5 mg Q6HR NEB 04/21/24 18:00 04/23/24 18:45 0.5 MG Folic Acid 1 mg/ Magnesium Sulfate 8 meq/ Multivitamins 10 ml/Thiamine HCl 100 mg/Sodium Chloride 1,013.2 ml @ 126.247 mls/hr DAILY@1800 INJ 04/23/24 18:00 04/23/24 18:44 126.247 MLS/HR objective Gen.: Patient lying in bed in no apparent distress. On supplemental oxygen. Head: Normocephalic, atraumatic. Eyes: EOMI/PERRLA. Ears: Normal hearing. Normal anatomy. Neck/trachea: Trachea midline, supple. Nose: Normal external anatomy. Mouth: Moist mucous membranes. Chest: Decreased air entry bilaterally. No wheezing or rhonchi. Cardiovascular: Positive S1, positive S2. Regular rate and rhythm. Abdomen: Positive bowel sounds in all 4 quadrants. Soft, non-tender, non- distended. : Deferred. Rectal: Deferred. Skin: Warm, dry. Intact. Extremities: 2+ radial pulses bilaterally. No lower extremity edema. Neuro: Awake, alert, oriented x3. No gross motor or sensory deficits. Cranial nerves II through XII intact. Gait not assessed. laboratory and microbiology Laboratory Tests 04/23/24 06:29 Test 04/23/24 06:29 Range/Units Serum Glucose 139 H 74-106 mg/dL Assessment/Plan Impression: Acute hypoxic respiratory failure Dependence on supplemental oxygen AE COPD Nicotine dependence s/p pacemaker Homelessness Pneumonia likely gram negative Polysubstance use ETOH abuse Events: Remains on supplemental oxygen, 2 LPM NC Taper O2 as tolerated Improving O2 requirements Banana bag, IV fluids Continue bronchodilators Continue IV steroids Continue antibiotics Incentive spirometry WBC trended up at 11.7 Hemoglobin trended down to 12.6 g/dL Head of bed elevation Aspiration precautions Swallow eval. Pepcid for GI prophylaxis Labs and imaging reviewed. Rest of plan as noted below. Plan Supplemental oxygen Keep o2 saturation above 92 % Antibiotics send sputum for gram stain and culture Bronchodilators Steroid course Smoking cessation discussed for greater than 10 minutes Counseled against substance use Counseled on cessation of alcohol use GI prophylaxis - Pepcid Prognosis: Guarded given patient's multiple co-morbidities. Rest of plan per hospitalist and other consultants. Thank you, BILLY Diana, for allowing me to participate in this patient's care. Further recommendations will depend on the patient's clinical course. Please do not hesitate to contact me if you have any questions or concerns. This medical document was created using an electronic medical record system with [employer] computerized dictation system. Although these documentations are being carefully reviewed, there may still be some phonetic and typographical changes. The errors are purely typographical, due to imperfection on the software program, and do not reflect any compromise in the patient's medical care. Plan discussed with: Patient, Other ([employer] Phelan) ARACELI BUCKLEY MD Apr 23, 2024 22:57
[2024-04-24] VITALS (13 sets, daily range): BP systolic 126–159; BP diastolic 66–85; PULSE 60–71; RESP 16–18; TEMP 97.6–98.4; O2SAT 95–100
--- NOTE | 2024-04-24 09:24 | DVHPN2 ---
Reviewed: Care Plan, H&P, Labs, Medications, Previous Orders, Radiology Changes from previous H/P or p: No Changes Eyes: No Pain, No Vision change, No Conjunctivae inflammation, No Eyelid inflammation, No Other, No Redness ENT: No Ear pain, No Ear discharge, No Nose pain, No Nose discharge, No Nose congestion, No Mouth pain, No Mouth swelling, No Throat pain, No Throat swelling, No Other Cardiovascular: No Chest Pain, No Palpitations, No Orthopnea, No Paroxysmal Noc. Dyspnea, No Edema, No Lt Headedness, No Other Respiratory: Cough; No Dry; Shortness of breath; No SOB with excertion, No Wheezing, No Hemoptysis, No Pleuritic Pain, No Sputum; Other (SOB at rest) Gastrointestinal: No Nausea, No Vomiting, No Abdominal Pain, No Diarrhea, No Constipation, No Melena, No Hematochezia, No Other Genitourinary: No Dysuria, No Frequency, No Incontinence, No Hematuria, No Retention, No Other Musculoskeletal: No other, No neck pain, No shoulder pain, No arm pain, No back pain, No hand pain, No leg pain, No foot pain Skin: No Rash, No Lesions, No Jaundice, No Bruising, No Other Objective Vitals Vital Signs Date Time Temp Pulse Resp B/P (MAP) Pulse Ox O2 Delivery O2 Flow Rate FiO2 04/24/24 06:20 96 Nasal Cannula 2.0 04/24/24 06:20 28 04/24/24 00:37 70 16 04/23/24 21:00 97.8 114/54 (74) 97.8 Intake/Output Intake and Output 04/24/24 07:00 Intake Total 1871.5 ml Output Total 1500 ml Balance 371.5 ml Intake Oral 1540 ml IV Total 331.5 ml Output Urine Total 1500 ml Medications Current Medications Medications Dose Ordered Sig/Aziza Route Start Time Stop Time Status Last Admin Dose Admin Methylprednisolone Sodium Succinate 40 mg Q8HR IV 04/20/24 22:00 04/23/24 21:33 40 MG Famotidine 20 mg DAILY IV 04/21/24 10:00 04/23/24 12:45 20 MG Albuterol 2.5 mg Q4HPRN PRN NEB 04/20/24 15:15 04/21/24 14:20 2.5 MG Ipratropium [place] 0.5 mg Q4HPRN PRN NEB 04/20/24 15:15 04/21/24 14:20 0.5 MG Sodium Chloride 10 ml Q8HR IV 04/20/24 22:00 04/24/24 06:31 10 ML Acetaminophen/ Hydrocodone Bitart 1 tab Q4HP PRN PO 04/20/24 15:15 04/22/24 21:57 1 TAB Ondansetron HCl 4 mg Q4HP PRN IV 04/20/24 15:15 Docusate Sodium 100 mg BIDPRN PRN PO 04/20/24 15:15 04/22/24 21:57 100 MG Acetaminophen 650 mg Q6HP PRN PO 04/20/24 15:15 Azithromycin 250 ml @ 125 mls/hr DAILY IV 04/21/24 10:00 04/23/24 12:43 125 MLS/HR Nitroglycerin 0.4 mg Q5MINP PRN SL 04/20/24 17:30 Morphine Sulfate 2 mg Q30M PRN IV 04/20/24 17:30 Hydralazine HCl 10 mg Q6HP PRN IV 04/20/24 17:30 Ceftriaxone Sodium 50 ml @ 100 mls/hr DAILY@09 IV 04/21/24 09:00 04/23/24 09:11 100 MLS/HR Albuterol 2.5 mg Q6HR NEB 04/21/24 18:00 04/24/24 00:32 2.5 MG Ipratropium [place] 0.5 mg Q6HR NEB 04/21/24 18:00 04/24/24 00:32 0.5 MG Folic Acid 1 mg/ Magnesium Sulfate 8 meq/ Multivitamins 10 ml/Thiamine HCl 100 mg/Sodium Chloride 1,013.2 ml @ 126.247 mls/hr DAILY@1800 INJ 04/23/24 18:00 04/23/24 18:44 126.247 MLS/HR Laboratory Results Laboratory Tests 04/23/24 06:29 Urinalysis Test 04/20/24 17:47 Urine Color Yellow (Yellow) Urine Clarity Clear (Clear) Urine pH 5.5 (5.0-9.0) Urine Specific [place] 1.025 (1.001-1.035) Urine Protein Trace (Negative) H Urine Ketones Negative (Negative) Urine Blood 2+ /uL (Negative) H Urine Nitrite Negative (Negative) Urine Bilirubin Negative (Negative) Urine Urobilinogen 2 mg/dL (Negative) H Urine Leukocyte Esterase Negative /uL (Negative) Urine RBC 18 /hpf (0 - 3) Urine Microscopic WBC 1 /HPF (0-3) Urine Squamous Epithelial Cells Few /hpf (<5) Urine Bacteria Few /hpf (None Seen) H Urine Mucus Few (None Seen) Urine Glucose Normal mg/dL (Normal) Microbiology Microbiology Date/Time Source Procedure Growth Status 04/21/24 15:25 Blood Blood Culture - Preliminary NO GROWTH AFTER 48 HOURS OF INCUBATION. Resulted Labs and/or images reviewed: Labs reviewed by me, Image(s) reviewed by me Assessment/Plan Assessment/Plan Acute hypoxic respiratory failure: Oxygen by nasal cannula Acute right lower lobe community-acquired pneumonia possibly Gram-negative: Rocephin azithromycin albuterol Atrovent Solu-Medrol, consult by Dr. Chaudhary appreciated Acute exacerbation of COPD Chronic current smoker: Counseling History of pacemaker D-dimer normal Flu test negative Alyssa test negative Chronic current alcohol abuse: Counseling, banana bag, blood alcohol 7.0 Blood cultures negative Polysubstance abuse including amphetamine Acute generalized weakness Hard of hearing Time spent 45 minutes Condition guarded Patient is full code Patient patient doing better today Plan discussed with: Patient My Orders Orders - CHAPARRITA SANCHEZ MD Procedure Category Date Status Time Folic Acid... PHA 04/23/24 In Process 18:00 Date of Service: Apr 24, 2024 Billing Provider: CHAPARRITA SANCHEZ MD Common Visit Codes: [id number] INP/OBS CARE(HIGH) CHAPARRITA SANCHEZ MD Apr 24, 2024 09:24
[2024-04-24 09:51] LABS: Basophils # (auto) 0.1 10 ^3/uL (0-0.2); Basophils % (auto) 0.6 % (0.0-2.0); Eosinophils # (auto) 0 10 ^3/uL (0-0.8); Hemoglobin 13.7 g/dL (13.5-17.5); Lymphocytes # (auto) 0.8 10 ^3/uL (0.4-5.4); Lymphocytes % (auto) 8.1 % (10.0-50.0); Mean Corpuscular Volume 94.1 fL (80.0-100.0); Monocytes # (auto) 0.5 10 ^3/uL (0-1.3); Monocytes % (auto) 5.2 % (0.0-12.0); Neutrophils # (auto) 8.2 10 ^3/uL (1.6-8.6); Neutrophils % (auto) 86.1 % (37.0-80.0); Platelet Count (auto) 238 10^3/uL (140-450); Red Blood Cells 4.15 10^6/uL (4.5-5.90); Red Cell Distribution Width 13.4 % (11.8-14.3); White Blood Cell 9.5 10^3/uL (4.4-10.8)
[2024-04-24 10:11] LABS: Alanine Aminotransferase 18 U/L (7-40); Alkaline Phosphatase 76 U/L (46-116); Anion Gap 3 (5-15); BUN/Creatinine Ratio 27.5 (10.0-20.0); Calcium 9.3 mg/dL (8.7-10.4); Carbon Dioxide 28 mmol/L (20-31); Chloride 105 mmol/L (98-107); Potassium 4.2 mmol/L (3.5-5.1); Total Protein 6.6 g/dL (5.7-8.2)
[2024-04-24 10:12] LABS: Albumin 4.1 g/dL (3.2-4.8); Bilirubin, Total 0.6 mg/dL (0.2-1.0)
[2024-04-24 10:26] LABS: Aspartate Aminotransferase 13 U/L (13-40); Blood Urea Nitrogen 30 mg/dL (9-23); Glucose 197 mg/dL (74-106); Sodium 136 mmol/L (136-145)
[2024-04-24] MEDS: THIAMINE HCL 100 MG TAB PO ONE (15:16)
[2024-04-24] MEDS: MULTIPLE VITAMIN TAB PO ONE (15:16)
[2024-04-24] MEDS: MAGNESIUM OXIDE 400 MG TAB PO ONE (15:16)
[2024-04-24] MEDS: FOLIC ACID 1 MG TAB PO ONE (15:16)
--- NOTE | 2024-04-24 23:19 | DVHPN2 ---
Progress Note - Dictate Date Seen: Apr 24, 2024 Medical Necessity Reason Pt with a Central, PICC or Fol: No Subjective Patient seen and examined at bedside. Remains on supplemental oxygen Overnight events reviewed. vital signs Vital Sign Date Time Temp Pulse Resp B/P (MAP) Pulse Ox O2 Delivery O2 Flow Rate FiO2 04/24/24 18:26 60 18 99 04/24/24 18:20 Nasal Cannula 2.0 04/24/24 18:20 28 04/24/24 17:00 98.0 151/78 (102) 98.0 Total Intake and Output 04/23/24 04/23/24 04/24/24 15:00 23:00 07:00 Intake Total 290 ml 881.5 ml 700 ml Output Total 475 ml 1025 ml Balance -185 ml -143.5 ml 700 ml medications Current Medications Medications Dose Ordered Sig/Aziza Route Start Time Stop Time Status Last Admin Dose Admin Methylprednisolone Sodium Succinate 40 mg Q8HR IV 04/20/24 22:00 04/24/24 21:45 40 MG Famotidine 20 mg DAILY IV 04/21/24 10:00 04/24/24 09:28 20 MG Albuterol 2.5 mg Q4HPRN PRN NEB 04/20/24 15:15 04/21/24 14:20 2.5 MG Ipratropium [place] 0.5 mg Q4HPRN PRN NEB 04/20/24 15:15 04/21/24 14:20 0.5 MG Sodium Chloride 10 ml Q8HR IV 04/20/24 22:00 04/24/24 21:45 10 ML Acetaminophen/ Hydrocodone Bitart 1 tab Q4HP PRN PO 04/20/24 15:15 04/22/24 21:57 1 TAB Ondansetron HCl 4 mg Q4HP PRN IV 04/20/24 15:15 Docusate Sodium 100 mg BIDPRN PRN PO 04/20/24 15:15 04/22/24 21:57 100 MG Acetaminophen 650 mg Q6HP PRN PO 04/20/24 15:15 Azithromycin 250 ml @ 125 mls/hr DAILY IV 04/21/24 10:00 04/24/24 10:25 125 MLS/HR Nitroglycerin 0.4 mg Q5MINP PRN SL 04/20/24 17:30 Morphine Sulfate 2 mg Q30M PRN IV 04/20/24 17:30 Hydralazine HCl 10 mg Q6HP PRN IV 04/20/24 17:30 Ceftriaxone Sodium 50 ml @ 100 mls/hr DAILY@09 IV 04/21/24 09:00 04/24/24 09:29 100 MLS/HR Albuterol 2.5 mg Q6HR NEB 04/21/24 18:00 04/24/24 18:19 2.5 MG Ipratropium [place] 0.5 mg Q6HR NEB 04/21/24 18:00 04/24/24 18:19 0.5 MG Folic Acid 1 mg DAILY PO 04/25/24 10:00 Multivitamins 1 tab DAILY PO 04/25/24 10:00 Magnesium Oxide 400 mg DAILY PO 04/25/24 10:00 Thiamine HCl 100 mg DAILY PO 04/25/24 10:00 objective Gen.: Patient lying in bed in no apparent distress. On supplemental oxygen. Head: Normocephalic, atraumatic. Eyes: EOMI/PERRLA. Ears: Normal hearing. Normal anatomy. Neck/trachea: Trachea midline, supple. Nose: Normal external anatomy. Mouth: Moist mucous membranes. Chest: Decreased air entry bilaterally. Wheezing improved. No rhonchi. Cardiovascular: Positive S1, positive S2. Regular rate and rhythm. Abdomen: Positive bowel sounds in all 4 quadrants. Soft, non-tender, non- distended. : Deferred. Rectal: Deferred. Skin: Warm, dry. Intact. Extremities: 2+ radial pulses bilaterally. No lower extremity edema. Neuro: Awake, alert, oriented x3. No gross motor or sensory deficits. Cranial nerves II through XII intact. Gait not assessed. laboratory and microbiology Laboratory Tests 04/24/24 09:39 Test 04/24/24 09:39 Range/Units Serum Glucose 197 H 74-106 mg/dL Assessment/Plan Impression: Acute hypoxic respiratory failure Dependence on supplemental oxygen AE COPD Nicotine dependence s/p pacemaker Homelessness Pneumonia likely gram negative Polysubstance use ETOH abuse Events: Remains on supplemental oxygen, 2 LPM [place] Taper O2 as tolerated Improved wheezing. Banana bag, IV fluids Continue bronchodilators Continue IV steroids Continue antibiotics Incentive spirometry WBC within normal limits. Hemoglobin trending up to 13.7 g/dL Head of bed elevation Aspiration precautions Swallow eval. Pepcid for GI prophylaxis Smoking cessation discussed for greater than 10 minutes Disposition per hospitalist. Labs and imaging reviewed. Rest of plan as noted below. Plan Supplemental oxygen Keep o2 saturation above 92 % Antibiotics send sputum for gram stain and culture Bronchodilators Steroid course Smoking cessation discussed for greater than 10 minutes Counseled against substance use Counseled on cessation of alcohol use GI prophylaxis - Pepcid Prognosis: Guarded given patient's multiple co-morbidities. Rest of plan per hospitalist and other consultants. Thank you, BILLY Diana, for allowing me to participate in this patient's care. Further recommendations will depend on the patient's clinical course. Please do not hesitate to contact me if you have any questions or concerns. This medical document was created using an electronic medical record system with [employer] computerized dictation system. Although these documentations are being carefully reviewed, there may still be some phonetic and typographical changes. The errors are purely typographical, due to imperfection on the software program, and do not reflect any compromise in the patient's medical care. Dietary Evaluation Review Comments: Continue current plan of care Expected Outcomes/Goals: Pt will continue to meet 75% estimated needs Fu 3-5 days Plan discussed with: Patient, Other (MALCOM Phelna) ARACELI BUCKLEY MD Apr 24, 2024 23:19
[2024-04-25] VITALS (13 sets, daily range): BP systolic 112–134; BP diastolic 70–76; PULSE 59–68; RESP 16–68; TEMP 97.6–98.5; O2SAT 93–99
[2024-04-25] MEDS: THIAMINE HCL 100 MG TAB PO SCH (08:56)
[2024-04-25] MEDS: MULTIPLE VITAMIN TAB PO SCH (08:57)
[2024-04-25] MEDS: FOLIC ACID 1 MG TAB PO SCH (08:57)
[2024-04-25] MEDS: MAGNESIUM OXIDE 400 MG TAB PO SCH (08:57)
--- NOTE | 2024-04-25 09:11 | DVHPN2 ---
Reviewed: Care Plan, H&P, Labs, Medications, Previous Orders, Radiology Changes from previous H/P or p: No Changes Eyes: No Pain, No Vision change, No Conjunctivae inflammation, No Eyelid inflammation, No Other, No Redness ENT: No Ear pain, No Ear discharge, No Nose pain, No Nose discharge, No Nose congestion, No Mouth pain, No Mouth swelling, No Throat pain, No Throat swelling, No Other Cardiovascular: No Chest Pain, No Palpitations, No Orthopnea, No Paroxysmal Noc. Dyspnea, No Edema, No Lt Headedness, No Other Respiratory: Cough; No Dry; Shortness of breath; No SOB with excertion, No Wheezing, No Hemoptysis, No Pleuritic Pain, No Sputum; Other (SOB at rest) Gastrointestinal: No Nausea, No Vomiting, No Abdominal Pain, No Diarrhea, No Constipation, No Melena, No Hematochezia, No Other Genitourinary: No Dysuria, No Frequency, No Incontinence, No Hematuria, No Retention, No Other Musculoskeletal: No other, No neck pain, No shoulder pain, No arm pain, No back pain, No hand pain, No leg pain, No foot pain Skin: No Rash, No Lesions, No Jaundice, No Bruising, No Other Objective Vitals Vital Signs Date Time Temp Pulse Resp B/P (MAP) Pulse Ox O2 Delivery O2 Flow Rate FiO2 04/25/24 08:16 97.8 68 16 134/76 (95) 96 97.8 04/25/24 00:58 Nasal Cannula 2.0 04/25/24 00:58 28 Intake/Output Intake and Output 04/25/24 07:00 Intake Total 1860 ml Output Total 1600 ml Balance 260 ml Intake Oral 1060 ml IV Total 800 ml Output Urine Total 1600 ml # Voids 2 Medications Current Medications Medications Dose Ordered Sig/Aziza Route Start Time Stop Time Status Last Admin Dose Admin Methylprednisolone Sodium Succinate 40 mg Q8HR IV 04/20/24 22:00 04/25/24 06:09 40 MG Famotidine 20 mg DAILY IV 04/21/24 10:00 04/25/24 08:56 20 MG Albuterol 2.5 mg Q4HPRN PRN NEB 04/20/24 15:15 04/21/24 14:20 2.5 MG Ipratropium [place] 0.5 mg Q4HPRN PRN NEB 04/20/24 15:15 04/21/24 14:20 0.5 MG Sodium Chloride 10 ml Q8HR IV 04/20/24 22:00 04/25/24 06:08 10 ML Acetaminophen/ Hydrocodone Bitart 1 tab Q4HP PRN PO 04/20/24 15:15 04/22/24 21:57 1 TAB Ondansetron HCl 4 mg Q4HP PRN IV 04/20/24 15:15 Docusate Sodium 100 mg BIDPRN PRN PO 04/20/24 15:15 04/22/24 21:57 100 MG Acetaminophen 650 mg Q6HP PRN PO 04/20/24 15:15 Azithromycin 250 ml @ 125 mls/hr DAILY IV 04/21/24 10:00 04/24/24 10:25 125 MLS/HR Nitroglycerin 0.4 mg Q5MINP PRN SL 04/20/24 17:30 Morphine Sulfate 2 mg Q30M PRN IV 04/20/24 17:30 Hydralazine HCl 10 mg Q6HP PRN IV 04/20/24 17:30 Ceftriaxone Sodium 50 ml @ 100 mls/hr DAILY@09 IV 04/21/24 09:00 04/25/24 08:57 100 MLS/HR Albuterol 2.5 mg Q6HR NEB 04/21/24 18:00 04/25/24 00:58 2.5 MG Ipratropium [place] 0.5 mg Q6HR NEB 04/21/24 18:00 04/25/24 00:58 0.5 MG Folic Acid 1 mg DAILY PO 04/25/24 10:00 04/25/24 08:57 1 MG Multivitamins 1 tab DAILY PO 04/25/24 10:00 04/25/24 08:57 1 TAB Magnesium Oxide 400 mg DAILY PO 04/25/24 10:00 04/25/24 08:57 400 MG Thiamine HCl 100 mg DAILY PO 04/25/24 10:00 04/25/24 08:56 100 MG Laboratory Results Laboratory Tests 04/24/24 09:39 Chemistry Test 04/24/24 09:39 Albumin 4.1 g/dL (3.2-4.8) Calcium Level 9.3 mg/dL (8.7-10.4) Total Protein 6.6 g/dL (5.7-8.2) LFT Test 04/24/24 09:39 Alanine Aminotransferase (ALT) 18 U/L (7-40) Alkaline Phosphatase 76 U/L (46-116) Aspartate Amino Transferase (AST) 13 U/L (13-40) Total Bilirubin 0.6 mg/dL (0.2-1.0) Urinalysis Test 04/20/24 17:47 Urine Color Yellow (Yellow) Urine Clarity Clear (Clear) Urine pH 5.5 (5.0-9.0) Urine Specific [place] 1.025 (1.001-1.035) Urine Protein Trace (Negative) H Urine Ketones Negative (Negative) Urine Blood 2+ /uL (Negative) H Urine Nitrite Negative (Negative) Urine Bilirubin Negative (Negative) Urine Urobilinogen 2 mg/dL (Negative) H Urine Leukocyte Esterase Negative /uL (Negative) Urine RBC 18 /hpf (0 - 3) Urine Microscopic WBC 1 /HPF (0-3) Urine Squamous Epithelial Cells Few /hpf (<5) Urine Bacteria Few /hpf (None Seen) H Urine Mucus Few (None Seen) Urine Glucose Normal mg/dL (Normal) Microbiology Microbiology Date/Time Source Procedure Growth Status 04/21/24 15:25 Blood Blood Culture - Preliminary NO GROWTH AFTER 72 HOURS OF INCUBATION. Resulted Labs and/or images reviewed: Labs reviewed by me, Image(s) reviewed by me Assessment/Plan Assessment/Plan Acute hypoxic respiratory failure: Oxygen by nasal cannula Acute right lower lobe community-acquired pneumonia possibly Gram-negative: Rocephin azithromycin albuterol Atrovent Solu-Medrol, consult by Dr. Chaudhary appreciated Acute exacerbation of COPD Chronic current smoker: Counseling History of pacemaker D-dimer normal Flu test negative Alyssa test negative Chronic current alcohol abuse: Counseling, banana bag, blood alcohol 7.0 Blood cultures negative Polysubstance abuse including amphetamine Acute generalized weakness Hard of hearing Time spent 45 minutes Condition guarded Patient is full code Patient doing better today Will JOSH Kelly Plan discussed with: Patient My Orders Orders - CHAPARRITA SANCHEZ MD Procedure Category Date Status Time Pharmacy [facility] 04/24/24 In Process Clarification: 13:48 Folic Acid Tablet PHA 04/25/24 In Process 10:00 Multiple Vitamin PHA 04/25/24 In Process Tablet (Mvi Tab) 10:00 Magnesium Oxide PHA 04/25/24 In Process Tablet (Mag-Ox Tablet) 10:00 Thiamine Tab PHA 04/25/24 In Process 10:00 Date of Service: Apr 25, 2024 Billing Provider: CHAPARRITA SANCHEZ MD Common Visit Codes: [id number] INP/OBS CARE(HIGH) CHAPARRITA SANCHEZ MD Apr 25, 2024 09:11
[2024-04-25 10:32] LABS: Basophils # (auto) 0 10 ^3/uL (0-0.2); Basophils % (auto) 0.1 % (0.0-2.0); Eosinophils # (auto) 0 10 ^3/uL (0-0.8); Hematocrit 40.1 % (41.0-53.0); Hemoglobin 13.7 g/dL (13.5-17.5); Lymphocytes # (auto) 0.7 10 ^3/uL (0.4-5.4); Lymphocytes % (auto) 7.4 % (10.0-50.0); Mean Corpuscular Hgb Conc. 34.1 g/dL (32.0-36.0); Mean Corpuscular Volume 93.9 fL (80.0-100.0); Monocytes # (auto) 0.4 10 ^3/uL (0-1.3); Neutrophils # (auto) 8.6 10 ^3/uL (1.6-8.6); Neutrophils % (auto) 88.5 % (37.0-80.0); Platelet Count (auto) 249 10^3/uL (140-450); Red Blood Cells 4.27 10^6/uL (4.5-5.90); Red Cell Distribution Width 13.1 % (11.8-14.3); White Blood Cell 9.7 10^3/uL (4.4-10.8)
[2024-04-25 10:51] LABS: Alanine Aminotransferase 21 U/L (7-40); Alkaline Phosphatase 73 U/L (46-116); Anion Gap 5 (5-15); Aspartate Aminotransferase 13 U/L (13-40); BUN/Creatinine Ratio 26.2 (10.0-20.0); Bilirubin, Total 0.8 mg/dL (0.2-1.0); Blood Urea Nitrogen 27 mg/dL (9-23); Calcium 9.2 mg/dL (8.7-10.4); Carbon Dioxide 28 mmol/L (20-31); Chloride 101 mmol/L (98-107); Glucose 133 mg/dL (74-106); Potassium 4.3 mmol/L (3.5-5.1); Sodium 134 mmol/L (136-145); Total Protein 6.4 g/dL (5.7-8.2)
--- NOTE | 2024-04-25 21:20 | DVHPN2 ---
Progress Note - Dictate Date Seen: Apr 25, 2024 Medical Necessity Reason Pt with a Central, PICC or Fol: No Subjective Patient seen and examined at bedside. Remains on supplemental oxygen Overnight events reviewed. vital signs Vital Sign Date Time Temp Pulse Resp B/P (MAP) Pulse Ox O2 Delivery O2 Flow Rate FiO2 04/25/24 20:08 62 18 99 04/25/24 20:01 Room Air 0.0 04/25/24 20:01 21 04/25/24 17:00 98.5 132/70 (90) 98.5 Total Intake and Output 04/24/24 04/24/24 04/25/24 15:00 23:00 07:00 Intake Total 660 ml 500 ml 700 ml Output Total 350 ml 450 ml 800 ml Balance 310 ml 50 ml -100 ml medications Current Medications Medications Dose Ordered Sig/Aziza Route Start Time Stop Time Status Last Admin Dose Admin Methylprednisolone Sodium Succinate 40 mg Q8HR IV 04/20/24 22:00 04/25/24 17:42 40 MG Famotidine 20 mg DAILY IV 04/21/24 10:00 04/25/24 08:56 20 MG Albuterol 2.5 mg Q4HPRN PRN NEB 04/20/24 15:15 04/21/24 14:20 2.5 MG Ipratropium [place] 0.5 mg Q4HPRN PRN NEB 04/20/24 15:15 04/21/24 14:20 0.5 MG Sodium Chloride 10 ml Q8HR IV 04/20/24 22:00 04/25/24 17:42 10 ML Acetaminophen/ Hydrocodone Bitart 1 tab Q4HP PRN PO 04/20/24 15:15 04/22/24 21:57 1 TAB Ondansetron HCl 4 mg Q4HP PRN IV 04/20/24 15:15 Docusate Sodium 100 mg BIDPRN PRN PO 04/20/24 15:15 04/22/24 21:57 100 MG Acetaminophen 650 mg Q6HP PRN PO 04/20/24 15:15 Azithromycin 250 ml @ 125 mls/hr DAILY IV 04/21/24 10:00 04/25/24 10:52 125 MLS/HR Nitroglycerin 0.4 mg Q5MINP PRN SL 04/20/24 17:30 Morphine Sulfate 2 mg Q30M PRN IV 04/20/24 17:30 Hydralazine HCl 10 mg Q6HP PRN IV 04/20/24 17:30 Ceftriaxone Sodium 50 ml @ 100 mls/hr DAILY@09 IV 04/21/24 09:00 04/25/24 08:57 100 MLS/HR Albuterol 2.5 mg Q6HR NEB 04/21/24 18:00 04/25/24 20:21 2.5 MG Ipratropium [place] 0.5 mg Q6HR NEB 04/21/24 18:00 04/25/24 20:22 0.5 MG Folic Acid 1 mg DAILY PO 04/25/24 10:00 04/25/24 08:57 1 MG Multivitamins 1 tab DAILY PO 04/25/24 10:00 04/25/24 08:57 1 TAB Magnesium Oxide 400 mg DAILY PO 04/25/24 10:00 04/25/24 08:57 400 MG Thiamine HCl 100 mg DAILY PO 04/25/24 10:00 04/25/24 08:56 100 MG objective Gen.: Patient lying in bed in no apparent distress. On supplemental oxygen. Head: Normocephalic, atraumatic. Eyes: EOMI/PERRLA. Ears: Normal hearing. Normal anatomy. Neck/trachea: Trachea midline, supple. Nose: Normal external anatomy. Mouth: Moist mucous membranes. Chest: Decreased air entry bilaterally. Wheezing improved. No rhonchi. Cardiovascular: Positive S1, positive S2. Regular rate and rhythm. Abdomen: Positive bowel sounds in all 4 quadrants. Soft, non-tender, non- distended. : Deferred. Rectal: Deferred. Skin: Warm, dry. Intact. Extremities: 2+ radial pulses bilaterally. No lower extremity edema. Neuro: Awake, alert, oriented x3. No gross motor or sensory deficits. Cranial nerves II through XII intact. Gait not assessed. laboratory and microbiology Laboratory Tests 04/25/24 10:00 Test 04/25/24 10:00 Range/Units Serum Glucose 133 H 74-106 mg/dL Assessment/Plan Impression: Acute hypoxic respiratory failure Dependence on supplemental oxygen AE COPD Nicotine dependence s/p pacemaker Homelessness Pneumonia likely gram negative Polysubstance use ETOH abuse Events: Remains on supplemental oxygen, 2 LPM NC Taper O2 as tolerated Improved wheezing. Continue bronchodilators Continue IV steroids Continue antibiotics Incentive spirometry WBC within normal limits. Hemoglobin stable at 13.7 g/dL Head of bed elevation Aspiration precautions Pepcid for GI prophylaxis Disposition per hospitalist. Patient refusing tele, will D/C. Labs and imaging reviewed. Rest of plan as noted below. Plan Supplemental oxygen Keep o2 saturation above 92 % Antibiotics send sputum for gram stain and culture Bronchodilators Steroid course Smoking cessation discussed for greater than 10 minutes Counseled against substance use Counseled on cessation of alcohol use GI prophylaxis - Pepcid Prognosis: Guarded given patient's multiple co-morbidities. Rest of plan per hospitalist and other consultants. Thank you, BILLY Diana, for allowing me to participate in this patient's care. Further recommendations will depend on the patient's clinical course. Please do not hesitate to contact me if you have any questions or concerns. This medical document was created using an electronic medical record system with [employer] dictation system. Although these documentations are being carefully reviewed, there may still be some phonetic and typographical changes. The errors are purely typographical, due to imperfection on the software program, and do not reflect any compromise in the patient's medical care. Dietary Evaluation Review Comments: Continue current plan of care Expected Outcomes/Goals: Pt will continue to meet 75% estimated needs Fu 3-5 days Plan discussed with: Patient, Other ([employer] [place]) ARACELI BUCKLEY MD Apr 25, 2024 21:20
[2024-04-26] VITALS (10 sets, daily range): BP systolic 121–143; BP diastolic 71–89; PULSE 55–94; RESP 14–18; TEMP 97.5–98.5; O2SAT 9–98
[2024-04-26] MEDS ORDERED: METH4PAK PO (10:02)
[2024-04-26] MEDS ORDERED: THIA100T13 PO (10:02)
[2024-04-26] MEDS ORDERED: FOLI-119 PO (10:02)
[2024-04-26] MEDS ORDERED: AZIT500T66 PO (10:02)
[2024-04-26] MEDS ORDERED: ALBUAER3 IN (10:03)
--- NOTE | 2024-04-26 10:03 | DVHPN2 ---
Reviewed: Care Plan, H&P, Labs, Medications, Previous Orders, Radiology Changes from previous H/P or p: No Changes Eyes: No Pain, No Vision change, No Conjunctivae inflammation, No Eyelid inflammation, No Other, No Redness ENT: No Ear pain, No Ear discharge, No Nose pain, No Nose discharge, No Nose congestion, No Mouth pain, No Mouth swelling, No Throat pain, No Throat swelling, No Other Cardiovascular: No Chest Pain, No Palpitations, No Orthopnea, No Paroxysmal Noc. Dyspnea, No Edema, No Lt Headedness, No Other Respiratory: Cough; No Dry; Shortness of breath; No SOB with excertion, No Wheezing, No Hemoptysis, No Pleuritic Pain, No Sputum; Other (SOB at rest) Gastrointestinal: No Nausea, No Vomiting, No Abdominal Pain, No Diarrhea, No Constipation, No Melena, No Hematochezia, No Other Genitourinary: No Dysuria, No Frequency, No Incontinence, No Hematuria, No Retention, No Other Musculoskeletal: No other, No neck pain, No shoulder pain, No arm pain, No back pain, No hand pain, No leg pain, No foot pain Skin: No Rash, No Lesions, No Jaundice, No Bruising, No Other Objective Vitals Vital Signs Date Time Temp Pulse Resp B/P (MAP) Pulse Ox O2 Delivery O2 Flow Rate FiO2 04/26/24 08:30 98.1 59 18 143/77 (99) 97 98.1 04/26/24 05:56 Room Air* 0 21 Intake/Output Intake and Output 04/26/24 07:00 Intake Total 2250 ml Output Total 2250 ml Balance 0 ml Intake Oral 1950 ml IV Total 300 ml Output Urine Total 2250 ml # Bowel Movements 1 Medications Current Medications Medications Dose Ordered Sig/Aziza Route Start Time Stop Time Status Last Admin Dose Admin Methylprednisolone Sodium Succinate 40 mg Q8HR IV 04/20/24 22:00 04/26/24 06:03 40 MG Famotidine 20 mg DAILY IV 04/21/24 10:00 04/26/24 09:21 20 MG Albuterol 2.5 mg Q4HPRN PRN NEB 04/20/24 15:15 04/21/24 14:20 2.5 MG Ipratropium [place] 0.5 mg Q4HPRN PRN NEB 04/20/24 15:15 04/21/24 14:20 0.5 MG Sodium Chloride 10 ml Q8HR IV 04/20/24 22:00 04/26/24 06:04 10 ML Acetaminophen/ Hydrocodone Bitart 1 tab Q4HP PRN PO 04/20/24 15:15 04/22/24 21:57 1 TAB Ondansetron HCl 4 mg Q4HP PRN IV 04/20/24 15:15 Docusate Sodium 100 mg BIDPRN PRN PO 04/20/24 15:15 04/22/24 21:57 100 MG Acetaminophen 650 mg Q6HP PRN PO 04/20/24 15:15 Azithromycin 250 ml @ 125 mls/hr DAILY IV 04/21/24 10:00 04/25/24 10:52 125 MLS/HR Nitroglycerin 0.4 mg Q5MINP PRN SL 04/20/24 17:30 Morphine Sulfate 2 mg Q30M PRN IV 04/20/24 17:30 Hydralazine HCl 10 mg Q6HP PRN IV 04/20/24 17:30 Ceftriaxone Sodium 50 ml @ 100 mls/hr DAILY@09 IV 04/21/24 09:00 04/26/24 09:18 100 MLS/HR Albuterol 2.5 mg Q6HR NEB 04/21/24 18:00 04/25/24 20:21 2.5 MG Ipratropium [place] 0.5 mg Q6HR NEB 04/21/24 18:00 04/25/24 20:22 0.5 MG Folic Acid 1 mg DAILY PO 04/25/24 10:00 04/26/24 09:16 1 MG Multivitamins 1 tab DAILY PO 04/25/24 10:00 04/26/24 09:15 1 TAB Magnesium Oxide 400 mg DAILY PO 04/25/24 10:00 04/26/24 09:15 400 MG Thiamine HCl 100 mg DAILY PO 04/25/24 10:00 04/26/24 09:15 100 MG Laboratory Results Laboratory Tests 04/25/24 10:00 Chemistry Test 04/25/24 10:00 Albumin 4.0 g/dL (3.2-4.8) Calcium Level 9.2 mg/dL (8.7-10.4) Total Protein 6.4 g/dL (5.7-8.2) LFT Test 04/25/24 10:00 Alanine Aminotransferase (ALT) 21 U/L (7-40) Alkaline Phosphatase 73 U/L (46-116) Aspartate Amino Transferase (AST) 13 U/L (13-40) Total Bilirubin 0.8 mg/dL (0.2-1.0) Urinalysis Test 04/20/24 17:47 Urine Color Yellow (Yellow) Urine Clarity Clear (Clear) Urine pH 5.5 (5.0-9.0) Urine Specific [place] 1.025 (1.001-1.035) Urine Protein Trace (Negative) H Urine Ketones Negative (Negative) Urine Blood 2+ /uL (Negative) H Urine Nitrite Negative (Negative) Urine Bilirubin Negative (Negative) Urine Urobilinogen 2 mg/dL (Negative) H Urine Leukocyte Esterase Negative /uL (Negative) Urine RBC 18 /hpf (0 - 3) Urine Microscopic WBC 1 /HPF (0-3) Urine Squamous Epithelial Cells Few /hpf (<5) Urine Bacteria Few /hpf (None Seen) H Urine Mucus Few (None Seen) Urine Glucose Normal mg/dL (Normal) Microbiology Microbiology Date/Time Source Procedure Growth Status 04/21/24 15:25 Blood Blood Culture - Preliminary NO GROWTH AFTER 72 HOURS OF INCUBATION. Resulted Labs and/or images reviewed: Labs reviewed by me, Image(s) reviewed by me Assessment/Plan Assessment/Plan Acute hypoxic respiratory failure: Oxygen by nasal cannula Acute right lower lobe community-acquired pneumonia possibly Gram-negative: Rocephin azithromycin albuterol Atrovent Solu-Medrol, consult by Dr. Chaudhary appreciated Acute exacerbation of COPD Chronic current smoker: Counseling History of pacemaker D-dimer normal Flu test negative Alyssa test negative Chronic current alcohol abuse: Counseling, banana bag, blood alcohol 7.0 Blood cultures negative Polysubstance abuse including amphetamine Acute generalized weakness Hard of hearing Time spent 45 minutes Condition guarded Patient is full code Patient doing better today Will JOSH Kelly Plan discussed with: Patient Date of Service: Apr 26, 2024 Billing Provider: CHAPARRITA SANCHEZ MD Common Visit Codes: [id number] INP/OBS CARE(HIGH) CHAPARRITA SANCHEZ MD Apr 26, 2024 10:03
--- NOTE | 2024-04-26 10:11 | DVHDS2 ---
Discharge Summary Date of Admission Apr 20, 2024 at 17:22 Date of Discharge: Apr 26, 2024 Admitting Diagnosis Shortness of breath Wounds: None Labs/Diagnostic Data: Laboratory Results Test 04/25/24 10:00 04/21/24 15:25 04/20/24 17:53 04/20/24 17:47 White Blood Count 9.7 10^3/uL (4.4-10.8) Red Blood Count 4.27 10^6/uL (4.5-5.90) Hemoglobin 13.7 g/dL (13.5-17.5) Hematocrit 40.1 % (41.0-53.0) Mean Corpuscular Volume 93.9 fL (80.0-100.0) Mean Corpuscular Hemoglobin 32.0 pg (28.0-32.0) Mean Corpuscular Hemoglobin Concent 34.1 g/dL (32.0-36.0) Red Cell Distribution Width 13.1 % (11.8-14.3) Platelet Count 249 10^3/uL (140-450) Mean Platelet Volume 6.5 fL (6.9-10.8) Neutrophils (%) (Auto) 88.5 % (37.0-80.0) Lymphocytes (%) (Auto) 7.4 % (10.0-50.0) Monocytes (%) (Auto) 4.0 % (0.0-12.0) Eosinophils (%) (Auto) 0.0 % (0.0-7.0) Basophils (%) (Auto) 0.1 % (0.0-2.0) Neutrophils # (Auto) 8.6 10 ^3/uL (1.6-8.6) Lymphocytes # (Auto) 0.7 10 ^3/uL (0.4-5.4) Monocytes # (Auto) 0.4 10 ^3/uL (0-1.3) Eosinophils # (Auto) 0 10 ^3/uL (0-0.8) Basophils # (Auto) 0 10 ^3/uL (0-0.2) Nucleated Red Blood Cells 0.0 % Sodium Level 134 mmol/L (136-145) Potassium Level 4.3 mmol/L (3.5-5.1) Chloride Level 101 mmol/L (98-107) Carbon Dioxide Level 28 mmol/L (20-31) Anion Gap 5 (5-15) Blood Urea Nitrogen 27 mg/dL (9-23) Creatinine 1.03 mg/dL (0.700-1.30) Glomerular Filtration Rate Calc 74 mL/min (>90) BUN/Creatinine Ratio 26.2 (10.0-20.0) Serum Glucose 133 mg/dL (74-106) Calcium Level 9.2 mg/dL (8.7-10.4) Total Bilirubin 0.8 mg/dL (0.2-1.0) Aspartate Amino Transferase (AST) 13 U/L (13-40) Alanine Aminotransferase (ALT) 21 U/L (7-40) Alkaline Phosphatase 73 U/L (46-116) Total Protein 6.4 g/dL (5.7-8.2) Albumin 4.0 g/dL (3.2-4.8) Plasma/Serum Blood Alcohol 4.6 mg/dL (<10) Troponin I High Sensitivity 13 ng/L (</=54) Urine Color Yellow (Yellow) Urine Clarity Clear (Clear) Urine pH 5.5 (5.0-9.0) Urine Specific [place] 1.025 (1.001-1.035) Urine Protein Trace (Negative) Urine Ketones Negative (Negative) Urine Blood 2+ /uL (Negative) Urine Nitrite Negative (Negative) Urine Bilirubin Negative (Negative) Urine Urobilinogen 2 mg/dL (Negative) Urine Leukocyte Esterase Negative /uL (Negative) Urine RBC 18 /hpf (0 - 3) Urine Microscopic WBC 1 /HPF (0-3) Urine Squamous Epithelial Cells Few /hpf (<5) Urine Bacteria Few /hpf (None Seen) Urine Mucus Few (None Seen) Urine Glucose Normal mg/dL (Normal) Urine Opiates Screen Neg (NEGATIVE) Urine Fentanyl Screen Neg (NEGATIVE) Urine Barbiturates Screen Neg (NEGATIVE) Urine Phencyclidine Screen Neg (NEGATIVE) Urine Amphetamines Screen Pos (NEGATIVE) Urine Benzodiazepines Screen Neg (NEGATIVE) Urine Cocaine Screen Neg (NEGATIVE) Urine Cannabinoids Screen Neg (NEGATIVE) Test 04/20/24 14:40 04/20/24 14:21 Influenza Type A Antigen Negative (Negative) Influenza Type B Antigen Negative (Negative) SARS-CoV-2 Antigen (Rapid) Negative (NEGATIVE) Prothrombin Time 11.3 sec (9.3-11.8) Prothrombin Time INR 1.07 (0.9-1.15) Activated Partial Thromboplast Time 31.8 SEC (24.5-34.5) D-Dimer, Quantitative 0.38 mg/L FEU (0.0-0.49) Lactic Acid Level 0.8 mmol/L (0.4-2.0) Magnesium Level 1.8 mg/dL (1.6-2.6) B-Type Natriuretic Peptide 87.34 pg/mL (0-100) Lipase 30 U/L (12-53) Other Laboratory Tests 04/25/24 10:00 Brief Hx & Hospital Course: 79-year-old male with a history of COPD chronic current smoker history of pacemaker chronic current alcohol abuse hard of hearing admitted for shortness of breaths found to have community-acquired pneumonia treated with Rocephin azithromycin albuterol Atrovent Solu-Medrol pulmonary consult by Dr. Chaudhary given banana bag for his alcohol abuse blood alcohol level was 7.0 at the time of admission blood cultures negative Alyssa test negative flu test negative D-dimer normal patient also has a history of pacemaker . Patient has significantly improved and at the time of discharge is on room air with stable vital signs and ambulatory discharged home. Prescription transmitted to the pharmacy. He will follow up with the his [place] Dr Consults/Reason for consult Pulmonology Dr. Chaudhary Operations or Procedures None Condition at Discharge: Fair Final Diagnosis/Problems List Acute hypoxic respiratory failure: Oxygen by nasal cannula Acute right lower lobe community-acquired pneumonia possibly Gram-negative: Rocephin azithromycin albuterol Atrovent Solu-Medrol, consult by Dr. Chaudhary appreciated Acute exacerbation of COPD Chronic current smoker: Counseling History of pacemaker D-dimer normal Flu test negative Alyssa test negative Chronic current alcohol abuse: Counseling, banana bag, blood alcohol 7.0 Blood cultures negative Polysubstance abuse including amphetamine Acute generalized weakness Hard of hearing Discharge Disposition: Home Discharge Instruct/Medications Diet: Cardiac 2g Na,low cholest Activity: Light activity Follow Up/Referral: Stop drinking alcohol Resume all previous home medications Follow up with the primary Dr in one week Medications: Azithromycin Medrol Dosepak Ventolin MDI Thiamine Folic acid Transmitted to pharmacy 36 (Time taken for discharge summary 36 minutes) Discharge Statement: "Patient was advised to return to the ER or call 911 if any headaches, dizziness, shortness of breath, chest pain, abdominal pain, bleeding, fevers, or worsening of medical condition. Patient was counseled about treatment plan, medications, possible side effects, patientverbalized understanding. All questions were answered to the best of my ability. This discharge took greater then 30 minutes in planning, reviewing documentation, counseling the patient, and discussing with other team members." ASSESSMENT ASSESSMENT Hospital Course Improved Assessment Acute hypoxic respiratory failure: Oxygen by nasal cannula Acute right lower lobe community-acquired pneumonia possibly Gram-negative: Rocephin azithromycin albuterol Atrovent Solu-Medrol, consult by Dr. Chaudhary appreciated Acute exacerbation of COPD Chronic current smoker: Counseling History of pacemaker D-dimer normal Flu test negative Alyssa test negative Chronic current alcohol abuse: Counseling, banana bag, blood alcohol 7.0 Blood cultures negative Polysubstance abuse including amphetamine Acute generalized weakness Hard of hearing Date of Service: Apr 26, 2024 Billing Provider: CHAPARRITA SANCHEZ MD Common Visit Codes: [id number] DISCH DAY >30min CHAPARRITA SANCHEZ MD Apr 26, 2024 10:11
[2024-04-26 13:25] LABS: Basophils # (auto) 0 10 ^3/uL (0-0.2); Eosinophils # (auto) 0 10 ^3/uL (0-0.8); Hemoglobin 14.5 g/dL (13.5-17.5); Lymphocytes # (auto) 0.8 10 ^3/uL (0.4-5.4); Lymphocytes % (auto) 6.6 % (10.0-50.0); Mean Corpuscular Hgb Conc. 33.8 g/dL (32.0-36.0); Mean Corpuscular Volume 94.8 fL (80.0-100.0); Monocytes # (auto) 0.5 10 ^3/uL (0-1.3); Monocytes % (auto) 4.1 % (0.0-12.0); Neutrophils # (auto) 10.9 10 ^3/uL (1.6-8.6); Neutrophils % (auto) 89.3 % (37.0-80.0); Nucleated Red Blood Cells % 0.1 %; Platelet Count (auto) 294 10^3/uL (140-450); Red Blood Cells 4.54 10^6/uL (4.5-5.90); Red Cell Distribution Width 13.1 % (11.8-14.3); White Blood Cell 12.2 10^3/uL (4.4-10.8)
[2024-04-26 13:41] LABS: Alanine Aminotransferase 23 U/L (7-40); Albumin 4.3 g/dL (3.2-4.8); Alkaline Phosphatase 77 U/L (46-116); Anion Gap 6 (5-15); BUN/Creatinine Ratio 30.5 (10.0-20.0); Bilirubin, Total 0.8 mg/dL (0.2-1.0); Calcium 9.6 mg/dL (8.7-10.4); Carbon Dioxide 27 mmol/L (20-31); Chloride 100 mmol/L (98-107); Potassium 4.9 mmol/L (3.5-5.1); Total Protein 6.8 g/dL (5.7-8.2)
[2024-04-26 13:43] LABS: Aspartate Aminotransferase 11 U/L (13-40); Blood Urea Nitrogen 32 mg/dL (9-23); Glucose 169 mg/dL (74-106); Sodium 133 mmol/L (136-145)
--- NOTE | 2024-04-26 19:50 | DVHPN2 ---
Progress Note - Dictate Date Seen: Apr 26, 2024 Medical Necessity Reason Pt with a Central, PICC or Fol: No Subjective Patient seen and examined at bedside. Breathing comfortably on room air Overnight events reviewed. vital signs Vital Sign Date Time Temp Pulse Resp B/P (MAP) Pulse Ox O2 Delivery O2 Flow Rate FiO2 04/26/24 12:46 97.5 55 14 96 04/26/24 12:30 143/71 (95) 04/26/24 12:18 Room Air 0.0 04/26/24 12:18 21 Total Intake and Output 04/25/24 04/25/24 04/26/24 15:00 23:00 07:00 Intake Total 300 ml 700 ml 1250 ml Output Total 450 ml 1200 ml 600 ml Balance -150 ml -500 ml 650 ml objective Gen.: Patient lying in bed in no apparent distress. On room air Head: Normocephalic, atraumatic. Eyes: EOMI/PERRLA. Ears: Normal hearing. Normal anatomy. Neck/trachea: Trachea midline, supple. Nose: Normal external anatomy. Mouth: Moist mucous membranes. Chest: Decreased air entry bilaterally. No wheezing. No rhonchi. Cardiovascular: Positive S1, positive S2. Regular rate and rhythm. Abdomen: Positive bowel sounds in all 4 quadrants. Soft, non-tender, non- distended. : Deferred. Rectal: Deferred. Skin: Warm, dry. Intact. Extremities: 2+ radial pulses bilaterally. No lower extremity edema. Neuro: Awake, alert, oriented x3. No gross motor or sensory deficits. Cranial nerves II through XII intact. Gait not assessed. laboratory and microbiology Laboratory Tests 04/26/24 13:00 Test 04/26/24 13:00 Range/Units Serum Glucose 169 H 74-106 mg/dL Assessment/Plan Impression: Acute hypoxic respiratory failure Dependence on supplemental oxygen AE COPD Nicotine dependence s/p pacemaker Homelessness Pneumonia likely gram negative Polysubstance use ETOH abuse Events: Currently on room air Supplemental oxygen PRN Continue bronchodilators Continue IV steroids - taper as tolerated Continue antibiotics Incentive spirometry WBC currently 12.2. Head of bed elevation Aspiration precautions Pepcid for GI prophylaxis Patient is stable for discharge from the pulmonary standpoint. Disposition per hospitalist. Follow up in 1-2 weeks in Pulmonary Clinic. Labs and imaging reviewed. Rest of plan as noted below. Plan Supplemental oxygen PRN Keep o2 saturation above 92% Antibiotics Blood cultures show no growth after 5 days send sputum for gram stain and culture Bronchodilators Steroid course Smoking cessation discussed for greater than 10 minutes Counseled against substance use Counseled on cessation of alcohol use GI prophylaxis - Pepcid Prognosis: Guarded given patient's multiple co-morbidities. Rest of plan per hospitalist and other consultants. Thank you, [facility], for allowing me to participate in this patient's care. Further recommendations will depend on the patient's clinical course. Please do not hesitate to contact me if you have any questions or concerns. This medical document was created using an electronic medical record system with [employer] dictation system. Although these documentations are being carefully reviewed, there may still be some phonetic and typographical changes. The errors are purely typographical, due to imperfection on the software program, and do not reflect any compromise in the patient's medical care. Dietary Evaluation Review Comments: Continue current plan of care Expected Outcomes/Goals: Pt will continue to meet 75% estimated needs Fu 3-5 days Plan discussed with: Patient, Other (RN Ty) ARACELI BUCKLEY MD Apr 26, 2024 19:50
[2024-04-26] MEDS ORDERED: methylPREDNISolone SOD SUCC 40 MG/ML VL IV SCH (22:00)
== END 2024-04-26 13:15 | disposition home or self-care (01) | DRG 177 ==
LOC: ER 13:45 → OVERFLOW 17:22 → TELE-CENTR 21:25
PROVIDERS: ADMIT Family Medicine; ATTEND Family Medicine
DX: J15.69 Pneumonia due to other Gram-negative bacteria (principal); J96.01 Acute respiratory failure with hypoxia; J44.1 Chronic obstructive pulmonary disease with (acute) exacerbation; Z59.00 Homelessness unspecified; J44.0 Chronic obstructive pulmonary disease with (acute) lower respiratory infection; F10.10 Alcohol abuse, uncomplicated; Y90.0 Blood alcohol level of less than 20 mg/100 ml; F15.10 Other stimulant abuse, uncomplicated; F12.10 Cannabis abuse, uncomplicated; F17.210 Nicotine dependence, cigarettes, uncomplicated; Z71.6 Tobacco abuse counseling; Z86.73 Personal history of transient ischemic attack (TIA), and cerebral infarction without residual deficits; Z79.1 Long term (current) use of non-steroidal anti-inflammatories (NSAID); Z79.891 Long term (current) use of opiate analgesic; Z79.899 Other long term (current) drug therapy; Z95.0 Presence of cardiac pacemaker; Z79.2 Long term (current) use of antibiotics; Z99.81 Dependence on supplemental oxygen
CPT/HCPCS: 36415; 71045; 80053; 80307; 80320; 81001; 83605; 83690; 83735; 83880; 84484; 85025; 85379; 85610; 85730; 87040; 87426; 87804; 93005; 94640; 96365; 96366; 96375; 99291; G0378; J3490

== ENCOUNTER 2024-06-02 16:41 | Inpatient (IN) | payer OTHER ==
[~2024-06-02] VITALS: Ht 172.7 cm; Wt 85.8 kg
[~2024-06-02 16:41] MED LIST changes: +ALBUAER3 IN; +AZIT500T66 PO; +FOLI-119 PO; +METH4PAK PO; +THIA100T13 PO
--- NOTE | 2024-06-02 16:48 | ED.PDOC ---
History of Present Illness HPI Comments 79 y/o M, with a known history of 2x CVA w/aphasia and pacemaker, is BIBA for c/o ALOC, today. Per EMS report, patient's family called after finding him in current altered state when visiting his trailer home, this afternoon. Patient was noted to have been found on laying on the ground on scene. He was also reported to have been discharged with Keflex antibiotics and Gomez catheter placed from [facility], yesterday, following recent UTI diagnosis. Patient has no further relevant or pertinent information reported. Patient has no reported chest pain, shortness of breath, fever, or other associated symptoms or modifiers at this time. Time Seen by : 16:40 Primary Care Provider: unknown Reviewed Notes: Nurses Notes, Program Assistant Notes, Medications, Allergies Allergies: Coded Allergies: NO KNOWN ALLERGIES (Unverified , 07/01/13) Home Meds Active Scripts Albuterol Sulfate (VENTOLIN MDI) 90 Mcg Ih, 90 MCG IN QID PRN, #1 INH Prov:CHAPARRITA SANCHEZ MD 04/26/24 Folic Acid (Folic Acid) 1 Mg Tab, 1 MG PO DAILY, #30 TAB Prov:CHAPARRITA SANCHEZ MD 04/26/24 Thiamine HCl (Thiamine Hydrochloride) 100 Mg Tab, 100 MG PO DAILY, #30 TAB Prov:CHAPARRITA SANCHEZ MD 04/26/24 Methylprednisolone (Medrol Dosepak) 4 Mg Luis, 4 MG PO UD, #21 TAB UAD Prov:CHAPARRITA SANCHEZ MD 04/26/24 Azithromycin (Azithromycin) 500 Mg Tab, 1 TAB PO DAILY, #7 TAB Prov:CHAPARRITA SANCHEZ MD 04/26/24 Hydrocodone-Acetaminophen (Hydrocodone Bitartrate/AC 5-325 mg) 1 Tab Tab, 1 TAB PO QID PRN, #20 TAB Prov:CHAPARRITA SANCHEZ MD 02/06/23 Clindamycin Hcl (Clindamycin Hcl) 300 Mg Cap, 1 CAP PO TID, #30 CAP Prov:CHAPARRITA SANCHEZ MD 02/06/23 Cephalexin (KEFLEX CAPSULE) 250 Mg Cp, 1 CAP PO QID, #40 CAP Prov:CHAPARRITA SANCHEZ MD 02/06/23 Hydrocodone-Acetaminophen (Hydrocodone Bitartrate/AC 5-325 mg) 1 Tab Tab, 1 TAB PO QID PRN, #20 TAB Prov:CHAPARRITA SANCHEZ MD 02/06/23 Clindamycin Hcl (Clindamycin Hcl) 300 Mg Cap, 1 CAP PO TID, #30 CAP Prov:CHAPARRITA SANCHEZ MD 02/06/23 Cephalexin Monohydrate (Cephalexin) 500 Mg Cap, 1 CAP PO TID, #30 CAP Prov:CHAPARRITA SANCHEZ MD 02/06/23 Information Source: Emergency Med Personnel Mode of Arrival: EMS Severity: Moderate Timing: Hours Duration: Since onset Prehospital treatment: 12 Lead EKG, Accucheck, Chain Splitter Past Medical History PAST MEDICAL HISTORY: CVA (2x w/aphasia ) Surgical History: Pacemaker Family History Family History: Reviewed,noncontributory to illness, Unobtainable Social History Smoker: Cigarettes, Greater Than 1 Pack/Day Alcohol: Heavy Drugs: Marijuana, Methamphetamine Lives In: Homeless Constitutional: denies: chills, diaphoresis, fatigue, fever, malaise, sweats, weakness, others EENTM: denies: blurred vision, double vision, ear bleeding, ear discharge, ear drainage, ear pain, ear ringing, eye pain, eye redness, hearing loss, mouth pain, mouth swelling, nasal discharge, nose bleeding, nose congestion, nose pain, photophobia, tearing, throat pain, throat swelling, voice changes, others Respiratory: denies: cough, hemoptysis, orthopnea, SOB at rest, shortness of breath, SOB with excertion, stridor, wheezing, others Cardiovascular: denies: chest pain, dizzy spells, diaphoresis, Dyspnea on exertion, edema, irregular heart beat, left arm pain, lightheadedness, palpitations, PND, syncope, others Gastrointestinal: denies: abdomen distended, abdominal pain, blood streaked bowels, constipated, diarrhea, dysphagia, difficulty swallowing, hematemesis, melena, nausea, poor appetite, poor fluid intake, rectal bleeding, rectal pain, vomiting, others Genitourinary: denies: burning, dysuria, flank pain, frequency, hematuria, incontinence, penile discharge, penile sore, pain, testicle pain, testicle swelling, urgency, others Neurological: reports: others (ALOC); denies: dizziness, fainting, headache, left sided numbness, left sided weakness, numbness, paresthesia, pre-existing deficit, right sided numbness, right sided weakness, seizure, speech problems, tingling, tremors, weakness Musculoskeletal: denies: back pain, gout, joint pain, joint swelling, muscle pain, muscle stiffness, neck pain, others Integumetry: denies: bruises, change in color, change in hair/nails, dryness, laceration, lesions, lumps, rash, wounds, others Allergic/Immunocompromised: denies: Difficulty Healing, Frequent Infections, Hives, Itching, others Hematologic/Lymphatic: denies: anemia, blood clots, easy bleeding, easy bruising, swollen glands, others Endocrine: denies: excessive hunger, excessive sweating, excessive thirst, excessive urination, flushing, intolerance to cold, intolerance to heat, unexplained weight gain, unexplained weight loss, others Psychiatric: denies: anxiety, bipolar disorder, depression, hopeless, panic disorder, schizophrenia, sleepless, suicidal, others All Other Systems: Reviewed and Negative Physical Exam General Appearance: Moderate Distress HEENT: Pale Conjuntivae (L), Pale Conjuntivae (R), Pharynx Normal, TMs Normal Neck: Limited Range of Motion, Non-Tender, Normal, Normal Inspection Respiratory: Chest Non-Tender, Lungs Clear, No Accessory Muscle Use, No Respiratory Distress, Normal Breath Sounds Cardiovascular: No Edema, No JVD, No Murmur, No Gallop, Tachycardia Breast Exam: Deferred Gastrointestinal: No Organomegaly, Non Tender, No Pulsatile Mass, Normal Bowel Sounds, Soft Genitalia: Other (Gomez catheter in place) Pelvic: Deferred Rectal: Deferred Extremities: No calf tenderness, Normal capillary refill, No pedal edema Musculoskeletal : Apperance: Normal Neurologic: merchant tailor II-XII nml as Tested, Motor Weakness, No Sensory Deficits, Other (Altered mental status) Cerebellar Function: Unable to Test Reflexes: Normal Skin: Dry, Pallor, Warm Lymphatic: No Adenopathy Was a procedure done? Was a procedure done?: No EKG EKG : Pulse Rate (adult): 96 [place]: Normal Cardiac Rhythm: Paced Block: None ST: Nonsp Differential Dx Considerations may include: encephalopathy, viral syndrome, dehydration, electrolyte imbalance, TIA, CVA, closed head injury, among others X-Ray, Labs, Meds, VS Vital Signs Date Time Temp Pulse Resp B/P (MAP) Pulse Ox O2 Delivery O2 Flow Rate FiO2 06/02/24 20:03 96 06/02/24 19:51 96 13 93 Room Air* 0 21 06/02/24 19:51 101.5 96 13 115/56 (75) 96 101.5 06/02/24 19:00 101.8 85 29 115/56 (75) 95 101.8 06/02/24 18:15 102.0 06/02/24 18:00 83 29 123/48 (73) 93 06/02/24 17:03 Room Air* 0 21 06/02/24 17:03 102.8 71 30 117/45 (69) 95 102.8 06/02/24 16:50 102.0 102 26 157/71 (99) 95 102.0 06/02/24 16:49 96 Lab Test 06/02/24 18:27 06/02/24 18:12 06/02/24 17:29 Range/Units POC Glucose 104 70-106 mg/dl Urine Color Yellow Yellow Urine Clarity Turbid H Clear Urine pH 5.5 5.0-9.0 Urine Specific [place] 1.026 1.001-1.035 Urine Protein 1+ H Negative Urine Ketones Negative Negative Urine Blood 3+ H Negative /uL Urine Nitrite Negative Negative Urine Bilirubin Negative Negative Urine Urobilinogen 3 H Negative mg/dL Urine Leukocyte Esterase 3+ Negative /uL Urine RBC 309 0 - 3 /hpf Urine Microscopic WBC 74 H 0-3 /HPF Urine Squamous Epithelial Cells Few <5 /hpf Urine Bacteria Few H None Seen /hpf Urine Glucose Trace Normal mg/dL White Blood Count 14.5 H 4.4-10.8 10^3/uL Red Blood Count 4.06 L 4.5-5.90 10^6/uL Hemoglobin 13.2 L 13.5-17.5 g/dL Hematocrit 38.6 L 41.0-53.0 % Mean Corpuscular Volume 95.0 80.0-100.0 fL Mean Corpuscular Hemoglobin 32.5 H 28.0-32.0 pg Mean Corpuscular Hemoglobin Concent 34.2 32.0-36.0 g/dL Red Cell Distribution Width 13.2 11.8-14.3 % Platelet Count 284 140-450 10^3/uL Mean Platelet Volume 6.7 L 6.9-10.8 fL Neutrophils (%) (Auto) 82.8 H 37.0-80.0 % Lymphocytes (%) (Auto) 6.9 L 10.0-50.0 % Monocytes (%) (Auto) 9.3 0.0-12.0 % Eosinophils (%) (Auto) 0.6 0.0-7.0 % Basophils (%) (Auto) 0.4 0.0-2.0 % Neutrophils # (Auto) 12.0 H 1.6-8.6 10 ^3/uL Lymphocytes # (Auto) 1.0 0.4-5.4 10 ^3/uL Monocytes # (Auto) 1.3 0-1.3 10 ^3/uL Eosinophils # (Auto) 0.1 0-0.8 10 ^3/uL Basophils # (Auto) 0.1 0-0.2 10 ^3/uL Nucleated Red Blood Cells 0.2 % Sodium Level 137 136-145 mmol/L Potassium Level 4.2 3.5-5.1 mmol/L Chloride Level 102 98-107 mmol/L Carbon Dioxide Level 25 20-31 mmol/L Anion Gap 10 5-15 Blood Urea Nitrogen 16 9-23 mg/dL Creatinine 1.20 0.700-1.30 mg/dL Glomerular Filtration Rate Calc 62 >90 mL/min BUN/Creatinine Ratio 13.3 10.0-20.0 Serum Glucose 113 H 74-106 mg/dL Lactic Acid Level 1.9 0.4-2.0 mmol/L Calcium Level 9.4 8.7-10.4 mg/dL Current Medications Medications (Trade) Dose Ordered Sig/Aziza Route Start Time Stop Time Status Last Admin Sodium Chloride 1,000 ml @ 150 mls/hr Q6H40M ONCE IV 06/02/24 17:00 06/02/24 23:39 06/02/24 17:10 Ceftriaxone Sodium 50 ml @ 100 mls/hr ONCE ONCE IV 06/02/24 17:15 06/02/24 17:44 DC 06/02/24 17:36 Diagnostic Test (Pha) (Accu-Chek Comfort Curve T) 1 strip Q2HR ONCE 06/02/24 18:00 06/02/24 18:01 DC 06/02/24 18:28 Acetaminophen (Tylenol Tablet) 650 mg ONCE ONCE PO 06/02/24 18:00 06/02/24 18:01 DC 06/02/24 18:15 Vancomycin HCl 200 ml @ 200 mls/hr ONCE ONCE IV 06/02/24 18:45 06/02/24 19:44 DC 06/02/24 18:43 IV Hep-Lock was established. At this time, the patient is being given Rocephin and vancomycin IV after blood cultures x2 were drawn. The patient was being given normal saline as a bolus per sepsis protocol The lactic acid level came back at 1.9 which is within normal limits. The CBC shows an elevated white blood cell count of 14.5 The rest of the CBC is within normal limits The chemistry panel is within normal limits. The urine test is positive for a significant UTI Based on the findings, we feel that the patient fits sepsis protocol The patient had a temperature of a 102.8 upon arrival and so the patient was given acetaminophen 650 mg p.o. The patient was being admitted at this time Images Reviewed?: Images reviewed and evaluated by me Time of 1ST Reevaluation: 17:10 Reevaluation 1ST: Unchanged Patient Education/Counseling: Other (patient is altered ) Family Education/Counseling: No Family Present Departure 1 Departure Time of Disposition: 20:11 Impression: Primary Impression: Sepsis secondary to UTI Additional Impression: Generalized weakness Disposition: 09 ADMITTED INPATIENT Admit to: Tele Condition: Fair Critical Care Note Critical Care Time?: Yes (45 min-critical care time only) Stability Stability form required: Yes Unstable for transfer: Telemetry monitoring (Telemetry monitoring required), ED Physician Assesment (Clinical assesment) Heart Score Heart Score: Heart Score Response (Comments) Value History N/A 0 EKG N/A 0 Age N/A 0 Risk Factors N/A 0 Troponin N/A 0 Total 0 I personally scribed for ADAM SWAIN MD ([email or web address]) on 06/02/24 at 16:48. Electronically submitted by Doug Waller ([email or web address]). ADAM SWAIN MD Jun 02, 2024 16:48
--- NOTE | 2024-06-02 16:51 | ECG ---
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
[2024-06-02] MEDS: SODIUM CHLORIDE 0.9% 1,000 ML IV ONE (17:10)
[2024-06-02] MEDS: VANCOMYCIN HCL 1000 MG VL IV ONE (17:15)
[2024-06-02] MEDS: cefTRIAXone 1GM/50ML D5W 50 ML IV ONE (17:36)
[2024-06-02 18:04] LABS: Basophils # (auto) 0.1 10 ^3/uL (0-0.2); Basophils % (auto) 0.4 % (0.0-2.0); Eosinophils # (auto) 0.1 10 ^3/uL (0-0.8); Eosinophils % (auto) 0.6 % (0.0-7.0); Hematocrit 38.6 % (41.0-53.0); Hemoglobin 13.2 g/dL (13.5-17.5); Lymphocytes % (auto) 6.9 % (10.0-50.0); Mean Corpuscular Hemoglobin 32.5 pg (28.0-32.0); Mean Corpuscular Hgb Conc. 34.2 g/dL (32.0-36.0); Monocytes # (auto) 1.3 10 ^3/uL (0-1.3); Monocytes % (auto) 9.3 % (0.0-12.0); Neutrophils % (auto) 82.8 % (37.0-80.0); Nucleated Red Blood Cells % 0.2 %; Platelet Count (auto) 284 10^3/uL (140-450); Red Blood Cells 4.06 10^6/uL (4.5-5.90); Red Cell Distribution Width 13.2 % (11.8-14.3); White Blood Cell 14.5 10^3/uL (4.4-10.8)
[2024-06-02 18:10] LABS: Anion Gap 10 (5-15); Calcium 9.4 mg/dL (8.7-10.4); Carbon Dioxide 25 mmol/L (20-31); Chloride 102 mmol/L (98-107); Potassium 4.2 mmol/L (3.5-5.1); Sodium 137 mmol/L (136-145)
[2024-06-02] MEDS: ACETAMINOPHEN 325 MG TAB PO ONE (18:15)
[2024-06-02 18:16] LABS: BUN/Creatinine Ratio 13.3 (10.0-20.0); Blood Urea Nitrogen 16 mg/dL (9-23)
[2024-06-02 18:27] LABS: Glucose 113 mg/dL (74-106)
[2024-06-02] MEDS: ACCU-CHEK COMFORT CURVE STRIP VI ONE (18:28)
--- NOTE | 2024-06-02 18:29 | DVH ---
CHEST RADIOGRAPH Indication: aloc Technique: Single frontal view of the chest was obtained Comparison: XY CHEST PORTABLE on DOS: 04/20/24, XY CHEST PORTABLE on DOS: 02/02/23, CHEST PORTABLE on D OS: 10/29/19. CT chest 10/30/2019 FINDINGS: Lines and Tubes: None. Left-sided approach dual lead pacemaker terminating within right atrium and r ight ventricle. Lungs: No focal consolidation. 1.6 cm right mid to lower lung zone nodular density Pleura: No effusion. No pneumothorax. Cardiomediastinal contours: Unremarkable Bones: No acute osseous abnormality. IMPRESSION: No acute cardiopulmonary disease. 1.6 cm right mid to lower lung zone pulmonary nodule also noted unchanged CT chest of 10/30/2019
[2024-06-02] MEDS: VANCOMYCIN 1GM/200ML PM 200 ML IV ONE (18:43)
[2024-06-02 18:48] LABS: Urine Bacteria FEW /hpf (None Seen); Urine Blood 3+ /uL (Negative); Urine Clarity Turbid (Clear); Urine Color Yellow (Yellow); Urine Protein, UAD 1+ (Negative); Urine Specific Gravity 1.026 (1.001-1.035); Urine Squamous Epithelial Cell FEW /hpf (<5); Urine Urobilinogen 3 mg/dL (Negative); Urine WBC 74 /HPF (0-3); Urine pH 5.5 (5.0-9.0)
[2024-06-02 19:51] VITALS: PULSE 96; RESP 13; O2SAT 93
--- NOTE | 2024-06-02 21:49 | DVHHPRES ---
History of Present Illness Resident Creating Document: SULAIMAN VELASCO RESIDENT History of Present Illness 79-year-old male with past medical history of stroke status post aphasia, COPD, history of polysubstance use, alcohol use disorder, pacemaker placement presented with complaints of shakiness and altered level of consciousness. Patient is nonverbal because of stroke but is able to comprehend at baseline but for last 1-2 days, family noticed that he is not able to comprehend and started having shaking episodes.He was also reported to have been discharged with Keflex antibiotics and Gomez catheter placed from [facility], yesterday, On presenting to the ER patient had fever had elevated white cell count was given IV fluids and was treated with IV antibiotics. Urine routine showed evidence of UTI. Patient became more alert after antibiotics were given. History can not be obtained because patient is nonverbal Past medical history stroke status post aphasia, COPD, history of polysubstance use, alcohol use disorder, pacemaker placement Past surgical history Pacemaker placement Social history Not obtained Family history Not obtained Allergic history Not obtained Medication history Not obtained Review of Systems Review of Systems Review of system could not be done because patient was having aphasia Allergies: Coded Allergies: NO KNOWN ALLERGIES (Unverified , 07/01/13) Exam Vital Signs Vital Signs Date Time Temp Pulse Resp B/P (MAP) Pulse Ox O2 Delivery O2 Flow Rate FiO2 06/02/24 20:09 101.5 06/02/24 20:03 96 06/02/24 19:51 13 93 Room Air* 0 21 06/02/24 19:51 115/56 (75) Exam Examination General Appearance: Alert, nonverbal, able to comprehend HEENT: EOMI Respiratory: Clear to auscultation, Normal air movement Cardiovascular: Regular rate, Normal S1, Normal S2 Abdominal: Normal bowel sounds Extremities: No cyanosis, No edema, Normal pulses, No tenderness/swelling Skin: No rashes, No breakdown Neuro: Aphasia Point of care ultrasound done at bedside IVC collapsible Labs/Xrays Labs Test 06/02/24 18:27 06/02/24 18:12 06/02/24 17:29 Range/Units POC Glucose 104 70-106 mg/dl Urine Color Yellow Yellow Urine Clarity Turbid H Clear Urine pH 5.5 5.0-9.0 Urine Specific [place] 1.026 1.001-1.035 Urine Protein 1+ H Negative Urine Ketones Negative Negative Urine Blood 3+ H Negative /uL Urine Nitrite Negative Negative Urine Bilirubin Negative Negative Urine Urobilinogen 3 H Negative mg/dL Urine Leukocyte Esterase 3+ Negative /uL Urine RBC 309 0 - 3 /hpf Urine Microscopic WBC 74 H 0-3 /HPF Urine Squamous Epithelial Cells Few <5 /hpf Urine Bacteria Few H None Seen /hpf Urine Glucose Trace Normal mg/dL White Blood Count 14.5 H 4.4-10.8 10^3/uL Red Blood Count 4.06 L 4.5-5.90 10^6/uL Hemoglobin 13.2 L 13.5-17.5 g/dL Hematocrit 38.6 L 41.0-53.0 % Mean Corpuscular Volume 95.0 80.0-100.0 fL Mean Corpuscular Hemoglobin 32.5 H 28.0-32.0 pg Mean Corpuscular Hemoglobin Concent 34.2 32.0-36.0 g/dL Red Cell Distribution Width 13.2 11.8-14.3 % Platelet Count 284 140-450 10^3/uL Mean Platelet Volume 6.7 L 6.9-10.8 fL Neutrophils (%) (Auto) 82.8 H 37.0-80.0 % Lymphocytes (%) (Auto) 6.9 L 10.0-50.0 % Monocytes (%) (Auto) 9.3 0.0-12.0 % Eosinophils (%) (Auto) 0.6 0.0-7.0 % Basophils (%) (Auto) 0.4 0.0-2.0 % Neutrophils # (Auto) 12.0 H 1.6-8.6 10 ^3/uL Lymphocytes # (Auto) 1.0 0.4-5.4 10 ^3/uL Monocytes # (Auto) 1.3 0-1.3 10 ^3/uL Eosinophils # (Auto) 0.1 0-0.8 10 ^3/uL Basophils # (Auto) 0.1 0-0.2 10 ^3/uL Nucleated Red Blood Cells 0.2 % Sodium Level 137 136-145 mmol/L Potassium Level 4.2 3.5-5.1 mmol/L Chloride Level 102 98-107 mmol/L Carbon Dioxide Level 25 20-31 mmol/L Anion Gap 10 5-15 Blood Urea Nitrogen 16 9-23 mg/dL Creatinine 1.20 0.700-1.30 mg/dL Glomerular Filtration Rate Calc 62 >90 mL/min BUN/Creatinine Ratio 13.3 10.0-20.0 Serum Glucose 113 H 74-106 mg/dL Lactic Acid Level 1.9 0.4-2.0 mmol/L Calcium Level 9.4 8.7-10.4 mg/dL Assessment/Plan Assessment/Plan A and P #Metabolic Encephalopathy due to Sepsis -Head CT -TSH, B12, and Folate #Sepsis likely due to UTI -IV fluids -IV antibiotics -lactic acid -blood culture and urine culture #UTI -IV meropenam considering recent admission at [place] -urine culture #h/o Pacemaker -telemetry # COPD -stable #CVA s/p Aphasia -repeat Head CT #history of polysubstance use including alcohol in the past Code status , full code as of now, since patient is not verbal, will talk to family in the AM Case discussion with Dr Youngblood Plan discussed with: Other My Orders Orders - SULAIMAN VELASCO Procedure Category Date Status Time Admit ADMIT 06/02/24 Transmitted 21:47 Oxygen By Nasal RT 06/02/24 Transmitted Cannula 21:47 Stat Ekg For Chest YOEL 06/02/24 In Process Pain 21:47 Notify Md Of Changes YOEL 06/02/24 In Process From Base 21:47 Golf Course Designer For YOEL 06/02/24 In Process 24 Hours 21:47 Emergency Dysrhythmia YOEL 06/02/24 In Process Protocol 21:47 Rhythm Strips Once YOEL 06/02/24 In Process Every Shift 21:47 Date of Service: Jun 02, 2024 Billing Provider: TAMMY YOUNGBLOOD MD Common Visit Codes: 16392-[id number] INP/OBS CARE (HIGH) Secondary Visit Codes: 81393-[id number] CARE PLAN 30 MINUTES SULAIMAN VELASCO Jun 02, 2024 21:49 TAMMY YOUNGBLOOD MD Jun 03, 2024 13:35
[2024-06-03] VITALS (17 sets, daily range): BP systolic 97–140; BP diastolic 47–75; PULSE 60–94; RESP 16–20; TEMP 97.9–100.4; O2SAT 95–100
[2024-06-03] MEDS ORDERED: VANCOMYCIN PER PHARMACY 0 MG IV SCH (00:45)
[2024-06-03] MEDS: SODIUM CHLORIDE 0.9% 1,000 ML IV ONE ×4 (01:00→19:47)
[2024-06-03] MEDS: MEROPENEM 1GM IVPB 50 ML IV ONE (02:47)
[2024-06-03] MEDS ORDERED: MEROPENEM 1GM IVPB 50 ML IV SCH (06:00)
[2024-06-03] MEDS ORDERED: methylPREDNISolone SOD SUCC 40 MG/ML VL IV ONE (09:00)
--- NOTE | 2024-06-03 09:42 | DVH ---
EXAM: CT HEAD WITHOUT CONTRAST INDICATION: ALOC EXAM DATE: 06/03/2024 08:48 AM COMPARISON: CT HEAD WITHOUT CONTRAST on DOS: 02/03/23, HEAD WITHOUT CONTRAST on DOS: 10/30/19, HEAD WI THOUT CONTRAST on DOS: 10/29/19 TECHNIQUE: CT of the head without intravenous contrast. Radiation Dose Information: CTDI volume is 67.99 mGy. Dose-length product is 1339.61 mGy*cm FINDINGS: There is no evidence of acute intracranial hemorrhage, extra-axial collection, mass effect, midline s hift, herniation or hydrocephalus. The ventricles, sulci and cisterns are age appropriate. The ribeiro-w tony differentiation is intact. The visualized paranasal sinuses and mastoid air cells are clear. The surrounding soft tissues and osseous structures are unremarkable. Remote left parietal infarct. IMPRESSION: No evidence of acute intracranial hemorrhage, mass effect or hydrocephalus. Remote left parietal infarct. END IMPRESSION:
[2024-06-03] MEDS: IPRATROPIUM BROM 0.5 MG/2.5ML INH SOL NEB SCH ×2 (10:00→18:47)
[2024-06-03] MEDS: methylPREDNISolone SOD SUCC 125 MG/2 ML VL IV ONE (10:09)
[2024-06-03] MEDS: MEROPENEM 1GM IVPB 50 ML IV SCH (10:09)
[2024-06-03] MEDS: ALBUTEROL SULF 2.5 MG/0.5ML(0.5%) NEB SOLN NEB SCH ×2 (10:14→18:47)
[2024-06-03] MEDS: ACETAMINOPHEN 325 MG TAB PO PRN (10:42)
[2024-06-03 10:57] LABS: COVID19 ANTIGEN SOFIA FIA NEGATIVE (NEGATIVE); Rapid Influenza A Negative (Negative); Rapid Influenza B Negative (Negative)
[2024-06-03 11:29] LABS: Chloride 107 mmol/L (98-107); Potassium 4.7 mmol/L (3.5-5.1); Sodium 138 mmol/L (136-145)
[2024-06-03 11:30] LABS: Anion Gap 16 (5-15)
[2024-06-03 11:31] LABS: Calcium 9.1 mg/dL (8.7-10.4)
[2024-06-03 11:35] LABS: Glucose 99 mg/dL (74-106)
[2024-06-03 11:36] LABS: BUN/Creatinine Ratio 10.9 (10.0-20.0); Blood Urea Nitrogen 11 mg/dL (9-23); Magnesium 1.8 mg/dL (1.6-2.6)
[2024-06-03 11:37] LABS: Carbon Dioxide 15 mmol/L (20-31)
[2024-06-03 11:57] LABS: Base Excess 0.1 mmol/L (-2.0-3.0)
--- NOTE | 2024-06-03 15:42 | DVHPNRES ---
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 Per patient's , at baseline he can not speak properly due to previous CVA leading to motor aphasia, but has recently been more altered since 3 days. She also reports of urinary incontinence, generalized weakness and decreased oral intake. One day back he was taken to the [facility], was diagnosed with UTI and was discharged with Keflex and urine catheter in-situ, but the patient condition got worsened which prompted this visit. PMHx: Hypertension, CVA, status post [place], COPD PSHx: Status post maker (patient is does not know although the reason of pacemaker) Family history: Noncontributory Social history: Current smoker, ambulatory at baseline, we lives with the family at home. Home medication: Does not take any medicine Allergic history: No known allergy Patient seen and examined at the bedside patient is altered and could not provide proper history. Patient reports: No new complaints, Feels better Changes from previous H/P or p: Changes Objective vital signs Vital Sign Date Time Temp Pulse Resp B/P (MAP) Pulse Ox O2 Delivery O2 Flow Rate FiO2 06/03/24 15:07 94 20 96 06/03/24 14:55 Room Air 0.0 06/03/24 14:55 21 06/03/24 13:00 98.2 97/47 (64) 98.2 Total Intake and Output 06/02/24 06/02/24 06/03/24 14:59 22:59 06:59 Intake Total 550 ml 50 ml Output Total 610 ml Balance 550 ml -560 ml medications Current Medications Medications Dose Ordered Sig/Aziza Route Start Time Stop Time Status Last Admin Dose Admin Meropenem 50 ml @ 17 mls/hr Q8HR IV 06/03/24 06:00 UNV Vancomycin HCl 0 ml @ 0 mls/hr UD IV 06/03/24 00:45 Acetaminophen 650 mg Q4HP PRN PO 06/03/24 00:45 06/03/24 10:42 Meropenem 50 ml @ 17 mls/hr Q12HR IV 06/03/24 10:00 06/03/24 10:09 Vancomycin HCl 200 ml @ 160 mls/hr Q24H IV 06/03/24 19:00 Albuterol 2.5 mg Q6HWA NEB 06/03/24 18:00 UNV Ipratropium [place] 0.5 mg Q6HWA NEB 06/03/24 18:00 UNV Examination General Appearance: Alert, lethargic, can follow simple commands HEENT: Atraumatic, PERRLA, EOMI, Mucous membrane moist/pink Respiratory: Bilateral rhonchi Cardiovascular: Regular rate, Normal S1, Normal S2, No murmurs, no chest wall tenderness Abdominal: Normal bowel sounds, Soft, No tenderness, No hepatospenomegaly, No masses Extremities: No clubbing, No cyanosis, No edema, Normal pulses, No tenderness/swelling Skin: No rashes, No breakdown, No significant lesion Neuro: Normal gait, Normal speech, Strength at 5/5 X4 ext, Normal tone, Sensation intact, Cranial nerves 3-12 NL, Reflexes 2+ Psych/Mental Status: Mental status NL, Mood NL laboratory and microbiology Laboratory Tests 06/03/24 09:09 06/02/24 17:29 Test 06/03/24 09:09 Range/Units Serum Glucose 99 74-106 mg/dL Labs and/or images reviewed: Labs reviewed by me, Image(s) reviewed by me Problem List/Assessment/Plan Problem List/Assessment/Plan Acute metabolic encephalopathy, likely due to sepsis Sepsis, likely due to UTI/pneumonia Complicated UTI Pneumonia, likely due to Gram-positive Gram-negative bacteria/viral UA shows UTI picture Urine/blood culture Empiric antibiotic vancomycin, and meropenem IV fluid Breathing treatment History of CVA, leading to motor aphasia History of hypertension COPD, stable CT scan shows No evidence of acute intracranial hemorrhage, mass effect or hydrocephalus. Remote left parietal infarct. Pulmonary nodule Chest x-ray shows 1.6 cm right mid to lower lung zone pulmonary nodule also noted unchanged CT chest of 10/30/2019 Outpatient follow up Gastroenteritis Stool study, C diff IV fluid Current smoker Counseled for more than 18 minutes foremost smoking cessation Status post pacemaker DIET: Soft mechanical DVT PROPHYLAXIS: Lovenox GI PROPHYLAXIS:: Protonix CODE STATUS: Goal of care discussed for more than 18 minutes, full code DISPOSITION: Med/surge Patient's status and plan discussed with the patients through the phone. Case discussed with Dr. Tavera. Plan discussed with: Patient, Other (RN) My Orders My Orders Orders - HETAL MAXWELL RESDIARIA Procedure Category Date Status Time Drug Screen LAB 06/03/24 Logged 07:56 Sodium Chloride 0.9% PHA 06/03/24 In Process 09:00 Stool Bacterial DONOVAN 06/03/24 Logged Culture 08:51 Stool Wbc LAB 06/03/24 Logged 08:51 Clostridium Difficile DONOVAN 06/03/24 Logged Toxin 08:51 Ammonia LAB 06/04/24 Verified 04:00 Abg W/ Co-Ox RT 06/03/24 Logged 11:36 Vitamin B12 LAB 06/03/24 Logged 11:49 Folate (Folic Acid) LAB 06/03/24 Logged 11:49 Mechanical Soft Diet DIET 06/03/24 Transmitted Dinner Albuterol Medneb PHA 06/03/24 Logged (Ventolin Medneb) 18:00 Ipratropium Medneb PHA 06/03/24 Logged (Atrovent Medneb) 18:00 HETAL MAXWELL RESDIENT Jun 03, 2024 15:42
[2024-06-03] MEDS: ENOXAPARIN SOD 40 MG/0.4 ML SYRINGE SC ONE (16:32)
[2024-06-03] MEDS: PANTOPRAZOLE 40 MG/10 ML VIAL INJ IV ONE (16:32)
[2024-06-03 16:40] LABS: Basophils # (auto) 0 10 ^3/uL (0-0.2); Basophils % (auto) 0.2 % (0.0-2.0); Eosinophils # (auto) 0 10 ^3/uL (0-0.8); Hematocrit 40.7 % (41.0-53.0); Hemoglobin 13.5 g/dL (13.5-17.5); Lymphocytes # (auto) 0.6 10 ^3/uL (0.4-5.4); Lymphocytes % (auto) 3.1 % (10.0-50.0); Mean Corpuscular Hemoglobin 31.3 pg (28.0-32.0); Mean Corpuscular Hgb Conc. 33.1 g/dL (32.0-36.0); Mean Corpuscular Volume 94.5 fL (80.0-100.0); Monocytes # (auto) 0.3 10 ^3/uL (0-1.3); Monocytes % (auto) 1.7 % (0.0-12.0); Neutrophils # (auto) 18.4 10 ^3/uL (1.6-8.6); Platelet Count (auto) 308 10^3/uL (140-450); Red Cell Distribution Width 13.3 % (11.8-14.3); White Blood Cell 19.4 10^3/uL (4.4-10.8)
[2024-06-03 16:56] LABS: INR 1.19 (0.9-1.15); Partial Thromboplastin Time 32.7 SEC (24.5-34.5); Prothrombin Time 12.4 sec (9.3-11.8)
[2024-06-03 17:02] LABS: Folate (Folic Acid) 17.52 ng/mL (>5.38)
[2024-06-03] MEDS: VANCOMYCIN 1GM/200ML PM 200 ML IV SCH (18:43)
[2024-06-04] VITALS (13 sets, daily range): BP systolic 109–125; BP diastolic 43–73; PULSE 55–68; RESP 16–18; TEMP 97.5–98.1; O2SAT 94–100
[2024-06-04 07:13] LABS: Alanine Aminotransferase 15 U/L (7-40); Albumin 3.3 g/dL (3.2-4.8); Alkaline Phosphatase 77 U/L (46-116); Anion Gap 11 (5-15); BUN/Creatinine Ratio 21.1 (10.0-20.0); Blood Urea Nitrogen 20 mg/dL (9-23); Calcium 8.9 mg/dL (8.7-10.4); Carbon Dioxide 21 mmol/L (20-31); Chloride 106 mmol/L (98-107); Potassium 4.3 mmol/L (3.5-5.1); Sodium 138 mmol/L (136-145)
[2024-06-04 07:14] LABS: Aspartate Aminotransferase 14 U/L (13-40); Bilirubin, Direct 0.2 mg/dL (<0.3); Bilirubin, Total 0.5 mg/dL (0.2-1.0)
[2024-06-04 07:15] LABS: Hematocrit 37.9 % (41.0-53.0); Hemoglobin 12.6 g/dL (13.5-17.5); Mean Corpuscular Hemoglobin 31.2 pg (28.0-32.0); Mean Corpuscular Hgb Conc. 33.2 g/dL (32.0-36.0); Platelet Count (auto) 349 10^3/uL (140-450); Red Blood Cells 4.04 10^6/uL (4.5-5.90); Red Cell Distribution Width 13.2 % (11.8-14.3); White Blood Cell 15.1 10^3/uL (4.4-10.8)
[2024-06-04 07:16] LABS: Glucose 207 mg/dL (74-106); Total Protein 5.4 g/dL (5.7-8.2)
[2024-06-04 07:25] LABS: Band Neutrophils % (manual) 0; Basophils % (manual) 0 (0.0-2.0); Blast Cells 0; Eosinophils % (manual) 0 (0-7); Metamyelocytes % 0; Myelocytes % 0; Promyelocytes % 0; Reactive Lymphocytes 0
[2024-06-04] MEDS: PANTOPRAZOLE 40 MG/10 ML VIAL INJ IV SCH (08:54)
[2024-06-04] MEDS: ENOXAPARIN SOD 40 MG/0.4 ML SYRINGE SC SCH (08:54)
[2024-06-04] MEDS ORDERED: methylPREDNISolone SOD SUCC 125 MG/2 ML VL IV SCH (10:00)
[2024-06-04 11:16] LABS: Lymphocytes % (manual) 5 (10.0-50.0); Monocytes % (manual) 4 (0-12); Platelet Estimate Adequate
[2024-06-04] MEDS: TAMSULOSIN HYDROCHLORIDE 0.4 MG CAP PO ONE (14:16)
--- NOTE | 2024-06-04 16:00 | DVHPNRES ---
Progress Note Date Seen: Jun 04, 2024 Resident Creating Document: HETAL MAXWELL MADY Has the PT tested + for MRSA If YES, has PT been informed?: Yes Medical Necessity Reason Pt with a Central, PICC or Fol: No Subjective Review of Systems Patient seen and examined at the bedside. Patient is feeling better since admission. Patient is more awake , follow simple command. Due to motor aphasia with the patient can not speak in full sentences. Patient reports: No new complaints, Feels better Changes from previous H/P or p: Changes Objective vital signs Vital Sign Date Time Temp Pulse Resp B/P (MAP) Pulse Ox O2 Delivery O2 Flow Rate FiO2 06/04/24 13:22 98.0 68 17 109/55 (73) 94 98.0 06/04/24 11:27 Room Air* 0 21 Total Intake and Output 06/03/24 06/03/24 06/04/24 15:00 23:00 07:00 Intake Total 50 ml 3450 ml 850 ml Output Total 550 ml 1325 ml Balance 50 ml 2900 ml -475 ml medications Current Medications Medications Dose Ordered Sig/Aziza Route Start Time Stop Time Status Last Admin Dose Admin Meropenem 50 ml @ 17 mls/hr Q8HR IV 06/03/24 06:00 UNV Vancomycin HCl 0 ml @ 0 mls/hr UD IV 06/03/24 00:45 Acetaminophen 650 mg Q4HP PRN PO 06/03/24 00:45 06/03/24 10:42 650 MG Meropenem 50 ml @ 17 mls/hr Q12HR IV 06/03/24 10:00 06/04/24 08:54 17 MLS/HR Vancomycin HCl 200 ml @ 160 mls/hr Q24H IV 06/03/24 19:00 06/03/24 18:43 160 MLS/HR Albuterol 2.5 mg Q6HWA NEB 06/03/24 18:00 06/04/24 11:26 2.5 MG Ipratropium [place] 0.5 mg Q6HWA NEB 06/03/24 18:00 06/04/24 11:27 0.5 MG Enoxaparin Sodium 40 mg DAILY SC 06/04/24 10:00 06/04/24 08:54 40 MG Pantoprazole Sodium 40 mg DAILY IV 06/04/24 10:00 06/04/24 08:54 40 MG Tamsulosin HCl 0.4 mg QPM PO 06/05/24 18:00 Examination General Appearance: Alert, lethargic, can follow simple commands HEENT: Atraumatic, PERRLA, EOMI, Mucous membrane moist/pink Respiratory: Bilateral rhonchi Cardiovascular: Regular rate, Normal S1, Normal S2, No murmurs, no chest wall tenderness Abdominal: Normal bowel sounds, Soft, No tenderness, No hepatospenomegaly, No masses Extremities: No clubbing, No cyanosis, No edema, Normal pulses, No tenderness/swelling Skin: No rashes, No breakdown, No significant lesion Neuro: Normal gait, Normal speech, Strength at 5/5 X4 ext, Normal tone, Sensation intact, Cranial nerves 3-12 NL, Reflexes 2+ Psych/Mental Status: Mental status NL, Mood NL laboratory and microbiology Laboratory Tests 06/04/24 05:30 Test 06/04/24 05:30 Range/Units Serum Glucose 207 #H 74-106 mg/dL Microbiology Date/Time Source Procedure Growth Status 06/03/24 06:38 Nose MRSA Screen - Final Complete 06/02/24 18:12 Voided Urine Urine Culture - Preliminary Resulted 06/02/24 17:29 Blood Blood Culture - Preliminary NO GROWTH AFTER 24 HOURS OF INCUBATION. Resulted Labs and/or images reviewed: Labs reviewed by me, Image(s) reviewed by me Problem List/Assessment/Plan Problem List/Assessment/Plan Acute metabolic encephalopathy, likely due to sepsis Sepsis, likely due to UTI/pneumonia Complicated UTI Pneumonia, likely due to Gram-positive Gram-negative bacteria/viral UA shows UTI picture Urine/blood culture Empiric antibiotic vancomycin, and meropenem IV fluid Breathing treatment History of CVA, leading to motor aphasia History of hypertension COPD, stable CT scan shows No evidence of acute intracranial hemorrhage, mass effect or hydrocephalus. Remote left parietal infarct. Pulmonary nodule Chest x-ray shows 1.6 cm right mid to lower lung zone pulmonary nodule also noted unchanged CT chest of 10/30/2019 Outpatient follow up Gastroenteritis Stool study, C diff IV fluid Current smoker Counseled for more than 18 minutes foremost smoking cessation Status post pacemaker BPH Tamsulosin DIET: Soft mechanical DVT PROPHYLAXIS: Lovenox GI PROPHYLAXIS:: Protonix CODE STATUS: Goal of care discussed for more than 18 minutes, full code DISPOSITION: Med/surge Patient's status and plan discussed with the patients through the phone. Case discussed with Dr. Tavera. Plan discussed with: Patient, Other (RN) My Orders My Orders Orders - HETAL MAXWELL RESDIARIA Procedure Category Date Status Time Discontinue Tele YOEL 06/04/24 In Process 11:05 Transfer Orders XFER 06/04/24 Transmitted 11:05 Communication Order ORDERS 06/04/24 Transmitted 11:05 HETAL MAXWELL RESDIARIA Jun 04, 2024 16:00
[2024-06-05] VITALS (8 sets, daily range): BP systolic 86–144; BP diastolic 32–81; PULSE 56–67; RESP 17–20; TEMP 97.4–97.8; O2SAT 91–96
[2024-06-05] MEDS: SODIUM CHLORIDE 0.9% 1,000 ML IV ONE (07:02)
[2024-06-05 13:05] LABS: Basophils # (auto) 0 10 ^3/uL (0-0.2); Basophils % (auto) 0.4 % (0.0-2.0); Eosinophils # (auto) 0.2 10 ^3/uL (0-0.8); Eosinophils % (auto) 1.8 % (0.0-7.0); Hematocrit 34.5 % (41.0-53.0); Hemoglobin 11.7 g/dL (13.5-17.5); Lymphocytes # (auto) 1.3 10 ^3/uL (0.4-5.4); Lymphocytes % (auto) 14.1 % (10.0-50.0); Mean Corpuscular Hemoglobin 32.1 pg (28.0-32.0); Mean Corpuscular Hgb Conc. 33.9 g/dL (32.0-36.0); Mean Corpuscular Volume 94.7 fL (80.0-100.0); Monocytes # (auto) 0.6 10 ^3/uL (0-1.3); Monocytes % (auto) 6.9 % (0.0-12.0); Neutrophils # (auto) 6.9 10 ^3/uL (1.6-8.6); Neutrophils % (auto) 76.8 % (37.0-80.0); Platelet Count (auto) 372 10^3/uL (140-450); Red Blood Cells 3.64 10^6/uL (4.5-5.90); Red Cell Distribution Width 13.4 % (11.8-14.3); White Blood Cell 8.9 10^3/uL (4.4-10.8)
[2024-06-05 13:26] LABS: Alkaline Phosphatase 62 U/L (46-116); Anion Gap 9 (5-15); BUN/Creatinine Ratio 22.6 (10.0-20.0); Blood Urea Nitrogen 21 mg/dL (9-23); Calcium 8.9 mg/dL (8.7-10.4); Carbon Dioxide 24 mmol/L (20-31); Potassium 4.2 mmol/L (3.5-5.1); Sodium 140 mmol/L (136-145)
[2024-06-05 13:28] LABS: Alanine Aminotransferase 43 U/L (7-40); Albumin 3.2 g/dL (3.2-4.8); Aspartate Aminotransferase 44 U/L (13-40); Bilirubin, Total 0.2 mg/dL (0.2-1.0); Chloride 107 mmol/L (98-107); Glucose 129 mg/dL (74-106); Total Protein 5.2 g/dL (5.7-8.2)
--- NOTE | 2024-06-05 13:58 | DVHPNRES ---
Progress Note Date Seen: Jun 05, 2024 Resident Creating Document: HETAL MAXWELL MADY Has the PT tested + for MRSA If YES, has PT been informed?: Yes Medical Necessity Reason Pt with a Central, PICC or Fol: No Subjective Review of Systems Patient seen and examined at the bedside. Patient has been more altered through the last night, less cooperative for taking vital and blood draw. Due to motor aphasia at baseline, the patient could not communicate properly. Objective vital signs Vital Sign Date Time Temp Pulse Resp B/P (MAP) Pulse Ox O2 Delivery O2 Flow Rate FiO2 06/05/24 13:13 61 20 06/05/24 13:03 96 06/05/24 10:00 Room Air* 0 21 06/05/24 01:00 97.4 86/32 (50) 97.4 Total Intake and Output 06/04/24 06/04/24 06/05/24 15:00 23:00 07:00 Intake Total 875 ml 200 ml Output Total 550 ml 400 ml Balance 325 ml -200 ml medications Current Medications Medications Dose Ordered Sig/Aziza Route Start Time Stop Time Status Last Admin Dose Admin Meropenem 50 ml @ 17 mls/hr Q8HR IV 06/03/24 06:00 UNV Vancomycin HCl 0 ml @ 0 mls/hr UD IV 06/03/24 00:45 Acetaminophen 650 mg Q4HP PRN PO 06/03/24 00:45 06/03/24 10:42 650 MG Meropenem 50 ml @ 17 mls/hr Q12HR IV 06/03/24 10:00 06/05/24 10:31 17 MLS/HR Vancomycin HCl 200 ml @ 160 mls/hr Q24H IV 06/03/24 19:00 06/04/24 18:30 160 MLS/HR Albuterol 2.5 mg Q6HWA NEB 06/03/24 18:00 06/05/24 13:03 2.5 MG Ipratropium [place] 0.5 mg Q6HWA NEB 06/03/24 18:00 06/05/24 13:03 0.5 MG Enoxaparin Sodium 40 mg DAILY SC 06/04/24 10:00 06/05/24 10:31 40 MG Pantoprazole Sodium 40 mg DAILY IV 06/04/24 10:00 06/05/24 10:21 40 MG Tamsulosin HCl 0.4 mg QPM PO 06/05/24 18:00 Examination General Appearance: Alert, lethargic, can follow simple commands HEENT: Atraumatic, PERRLA, EOMI, Mucous membrane moist/pink Respiratory: Bilateral rhonchi Cardiovascular: Regular rate, Normal S1, Normal S2, No murmurs, no chest wall tenderness Abdominal: Normal bowel sounds, Soft, No tenderness, No hepatospenomegaly, No masses Extremities: No clubbing, No cyanosis, No edema, Normal pulses, No tenderness/swelling Skin: No rashes, No breakdown, No significant lesion Neuro: Normal gait, Normal speech, Strength at 5/5 X4 ext, Normal tone, Sensation intact, Cranial nerves 3-12 NL, Reflexes 2+ Psych/Mental Status: Mental status NL, Mood NL laboratory and microbiology Laboratory Tests 06/05/24 12:50 Test 06/05/24 12:50 Range/Units Serum Glucose 129 H 74-106 mg/dL Microbiology Date/Time Source Procedure Growth Status 06/03/24 06:38 Nose MRSA Screen - Final Complete 06/02/24 18:12 Voided Urine Urine Culture - Final Complete 06/02/24 17:29 Blood Blood Culture - Preliminary NO GROWTH AFTER 48 HOURS OF INCUBATION. Resulted Labs and/or images reviewed: Labs reviewed by me, Image(s) reviewed by me Problem List/Assessment/Plan Problem List/Assessment/Plan Acute metabolic encephalopathy, likely due to sepsis Sepsis, likely due to UTI/pneumonia Complicated UTI Pneumonia, likely due to Gram-positive Gram-negative bacteria/viral UA shows UTI picture Urine/blood culture shows no growth Empiric antibiotic vancomycin, and meropenem IV fluid Breathing treatment History of CVA, leading to motor aphasia History of hypertension COPD, stable CT scan shows No evidence of acute intracranial hemorrhage, mass effect or hydrocephalus. Remote left parietal infarct. Pulmonary nodule Chest x-ray shows 1.6 cm right mid to lower lung zone pulmonary nodule also noted unchanged CT chest of 10/30/2019 Outpatient follow up Gastroenteritis Stool study, C diff IV fluid Current smoker Counseled for more than 18 minutes foremost smoking cessation Status post pacemaker BPH Tamsulosin DIET: Soft mechanical DVT PROPHYLAXIS: Lovenox GI PROPHYLAXIS:: Protonix CODE STATUS: Goal of care discussed for more than 18 minutes, full code DISPOSITION: Med/surge Patient's status and plan discussed with the patients through the phone. Case discussed with Dr. Tavera. Plan discussed with: Patient, Other (RN) HETAL MAXWELL Jun 05, 2024 13:58
[2024-06-05] MEDS: TAMSULOSIN HYDROCHLORIDE 0.4 MG CAP PO SCH (18:00)
[2024-06-06] VITALS (10 sets, daily range): BP systolic 113–144; BP diastolic 51–81; PULSE 60–74; RESP 14–20; TEMP 97.4–98.1; O2SAT 94–100
[2024-06-06 15:58] LABS: Basophils # (auto) 0.1 10 ^3/uL (0-0.2); Basophils % (auto) 1.3 % (0.0-2.0); Eosinophils # (auto) 0.2 10 ^3/uL (0-0.8); Eosinophils % (auto) 2.9 % (0.0-7.0); Hematocrit 36.5 % (41.0-53.0); Hemoglobin 12.6 g/dL (13.5-17.5); Lymphocytes # (auto) 1.2 10 ^3/uL (0.4-5.4); Lymphocytes % (auto) 20.9 % (10.0-50.0); Mean Corpuscular Hemoglobin 32.4 pg (28.0-32.0); Mean Corpuscular Hgb Conc. 34.6 g/dL (32.0-36.0); Mean Corpuscular Volume 93.8 fL (80.0-100.0); Monocytes # (auto) 0.6 10 ^3/uL (0-1.3); Monocytes % (auto) 10.2 % (0.0-12.0); Neutrophils # (auto) 3.8 10 ^3/uL (1.6-8.6); Neutrophils % (auto) 64.7 % (37.0-80.0); Nucleated Red Blood Cells % 0.2 %; Platelet Count (auto) 317 10^3/uL (140-450); Red Blood Cells 3.89 10^6/uL (4.5-5.90); Red Cell Distribution Width 13.1 % (11.8-14.3); White Blood Cell 5.9 10^3/uL (4.4-10.8)
[2024-06-06 16:02] LABS: Albumin 3.4 g/dL (3.2-4.8); Alkaline Phosphatase 65 U/L (46-116); Anion Gap 8 (5-15); BUN/Creatinine Ratio 18.4 (10.0-20.0); Blood Urea Nitrogen 16 mg/dL (9-23); Carbon Dioxide 26 mmol/L (20-31); Chloride 102 mmol/L (98-107); Potassium 4.1 mmol/L (3.5-5.1); Sodium 136 mmol/L (136-145); Total Protein 5.7 g/dL (5.7-8.2)
[2024-06-06 16:06] LABS: Alanine Aminotransferase 46 U/L (7-40); Aspartate Aminotransferase 40 U/L (13-40); Bilirubin, Total 0.3 mg/dL (0.2-1.0); Glucose 111 mg/dL (74-106)
--- NOTE | 2024-06-06 19:29 | DVHPN2 ---
Subjective Patient remains at his baseline, tolerating p.o., bowel function intact. Reviewed: H&P Changes from previous H/P or p: No Changes General: Per HPI Objective Vitals Vital Signs Date Time Temp Pulse Resp B/P (MAP) Pulse Ox O2 Delivery O2 Flow Rate FiO2 06/06/24 19:00 60 14 100 06/06/24 18:52 Room Air* 0 21 06/06/24 17:00 98.1 137/76 (96) 98.1 Intake/Output Intake and Output 06/06/24 07:00 Intake Total 1800 ml Output Total 2000 ml Balance -200 ml Intake Oral 750 ml IV Total 1050 ml Output Urine Total 2000 ml Exam General Appearance: Alert, lethargic, can follow simple commands HEENT: Atraumatic, PERRLA, EOMI, Mucous membrane moist/pink Respiratory: Bilateral rhonchi Cardiovascular: Regular rate, Normal S1, Normal S2, No murmurs, no chest wall tenderness Abdominal: Normal bowel sounds, Soft, No tenderness, No hepatospenomegaly, No masses Extremities: No clubbing, No cyanosis, No edema, Normal pulses, No tenderness/swelling Skin: No rashes, No breakdown, No significant lesion Neuro: Normal gait, Normal speech, Strength at 5/5 X4 ext, Normal tone, Sensation intact, Cranial nerves 3-12 NL, Reflexes 2+ Psych/Mental Status: Mental status NL, Mood NL Medications Current Medications Medications Dose Ordered Sig/Aziza Route Start Time Stop Time Status Last Admin Dose Admin Meropenem 50 ml @ 17 mls/hr Q8HR IV 06/03/24 06:00 UNV Vancomycin HCl 0 ml @ 0 mls/hr UD IV 06/03/24 00:45 Acetaminophen 650 mg Q4HP PRN PO 06/03/24 00:45 06/03/24 10:42 650 MG Meropenem 50 ml @ 17 mls/hr Q12HR IV 06/03/24 10:00 06/05/24 22:20 17 MLS/HR Vancomycin HCl 200 ml @ 160 mls/hr Q24H IV 06/03/24 19:00 06/06/24 18:09 160 MLS/HR Albuterol 2.5 mg Q6HWA NEB 06/03/24 18:00 06/06/24 18:53 2.5 MG Ipratropium [place] 0.5 mg Q6HWA NEB 06/03/24 18:00 06/06/24 18:53 0.5 MG Enoxaparin Sodium 40 mg DAILY SC 06/04/24 10:00 06/05/24 10:31 40 MG Pantoprazole Sodium 40 mg DAILY IV 06/04/24 10:00 06/05/24 10:21 40 MG Tamsulosin HCl 0.4 mg QPM PO 06/05/24 18:00 06/06/24 18:01 0.4 MG Laboratory Results Laboratory Tests 06/06/24 15: Chemistry Test 06/06/24 15: Albumin 3.4 g/dL (3.2-4.8) Calcium Level 9.0 mg/dL (8.7-10.4) Total Protein 5.7 g/dL (5.7-8.2) LFT Test 06/06/24 15:25 Alanine Aminotransferase (ALT) 46 U/L (7-40) H Alkaline Phosphatase 65 U/L (46-116) Aspartate Amino Transferase (AST) 40 U/L (13-40) Total Bilirubin 0.3 mg/dL (0.2-1.0) Urinalysis Test 06/02/24 18:12 Urine Color Yellow (Yellow) Urine Clarity Turbid (Clear) H Urine pH 5.5 (5.0-9.0) Urine Specific [place] 1.026 (1.001-1.035) Urine Protein 1+ (Negative) H Urine Ketones Negative (Negative) Urine Blood 3+ /uL (Negative) H Urine Nitrite Negative (Negative) Urine Bilirubin Negative (Negative) Urine Urobilinogen 3 mg/dL (Negative) H Urine Leukocyte Esterase 3+ /uL (Negative) Urine RBC 309 /hpf (0 - 3) Urine Microscopic WBC 74 /HPF (0-3) H Urine Squamous Epithelial Cells Few /hpf (<5) Urine Bacteria Few /hpf (None Seen) H Urine Glucose Trace mg/dL (Normal) Microbiology Microbiology Date/Time Source Procedure Growth Status 06/03/24 06:38 Nose MRSA Screen - Final Complete 06/02/24 18:12 Voided Urine Urine Culture - Final Complete 06/02/24 17:29 Blood Blood Culture - Preliminary NO GROWTH AFTER 72 HOURS OF INCUBATION. Resulted Labs and/or images reviewed: Labs reviewed by me, Image(s) reviewed by me Assessment/Plan Assessment/Plan 4/19-patient remains at his baseline, labs stable, continuing UTI treatment. This is likely patient's baseline in does not appear to be hallucinating or altered. We need to settle a baseline with the patient's family who has been difficult to contact. We will continue present treatment and if appears to improving likely discharge tomorrow back to home. 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 Remote left parietal infarct. Pulmonary nodule Chest x-ray shows 1.6 cm right mid to lower lung zone pulmonary nodule also noted unchanged CT chest of 10/30/2019 Outpatient follow up Gastroenteritis Stool study, C diff IV fluid Current smoker Counseled for more than 18 minutes foremost smoking cessation Status post pacemaker BPH Tamsulosin DIET: Soft mechanical DVT PROPHYLAXIS: Lovenox GI PROPHYLAXIS:: Protonix CODE STATUS: Goal of care discussed for more than 18 minutes, full code DISPOSITION: Med/surge Plan discussed with: Patient, Other Date of Service: Jun 06, 2024 Billing Provider: TAMICA LOPEZ MD Common Visit Codes: [id number] INP/OBS CARE(HIGH) TAMICA LOPEZ MD Jun 06, 2024 19:29
[2024-06-07] VITALS (8 sets, daily range): BP systolic 108–136; BP diastolic 54–69; PULSE 60–70; RESP 17–20; TEMP 36.6; O2SAT 93–100
--- NOTE | 2024-06-07 13:35 | DVHDSRES ---
Discharge Summary Date of Admission Resident Creating Document: HETAL MAXWELL RESDIENT Jun 02, 2024 at 21:47 Date of Discharge: Jun 07, 2024 Admitting Diagnosis ALOC Labs/Diagnostic Data: Laboratory Results Test 06/06/24 15:25 06/05/24 12:50 06/04/24 05:30 06/03/24 16:25 White Blood Count 5.9 10^3/uL (4.4-10.8) Red Blood Count 3.89 10^6/uL (4.5-5.90) Hemoglobin 12.6 g/dL (13.5-17.5) Hematocrit 36.5 % (41.0-53.0) Mean Corpuscular Volume 93.8 fL (80.0-100.0) Mean Corpuscular Hemoglobin 32.4 pg (28.0-32.0) Mean Corpuscular Hemoglobin Concent 34.6 g/dL (32.0-36.0) Red Cell Distribution Width 13.1 % (11.8-14.3) Platelet Count 317 10^3/uL (140-450) Mean Platelet Volume 6.1 fL (6.9-10.8) Neutrophils (%) (Auto) 64.7 % (37.0-80.0) Lymphocytes (%) (Auto) 20.9 % (10.0-50.0) Monocytes (%) (Auto) 10.2 % (0.0-12.0) Eosinophils (%) (Auto) 2.9 % (0.0-7.0) Basophils (%) (Auto) 1.3 % (0.0-2.0) Neutrophils # (Auto) 3.8 10 ^3/uL (1.6-8.6) Lymphocytes # (Auto) 1.2 10 ^3/uL (0.4-5.4) Monocytes # (Auto) 0.6 10 ^3/uL (0-1.3) Eosinophils # (Auto) 0.2 10 ^3/uL (0-0.8) Basophils # (Auto) 0.1 10 ^3/uL (0-0.2) Nucleated Red Blood Cells 0.2 % Sodium Level 136 mmol/L (136-145) Potassium Level 4.1 mmol/L (3.5-5.1) Chloride Level 102 mmol/L (98-107) Carbon Dioxide Level 26 mmol/L (20-31) Anion Gap 8 (5-15) Blood Urea Nitrogen 16 mg/dL (9-23) Creatinine 0.87 mg/dL (0.700-1.30) Glomerular Filtration Rate Calc 88 mL/min (>90) BUN/Creatinine Ratio 18.4 (10.0-20.0) Serum Glucose 111 mg/dL (74-106) Calcium Level 9.0 mg/dL (8.7-10.4) Total Bilirubin 0.3 mg/dL (0.2-1.0) Aspartate Amino Transferase (AST) 40 U/L (13-40) Alanine Aminotransferase (ALT) 46 U/L (7-40) Alkaline Phosphatase 65 U/L (46-116) Total Protein 5.7 g/dL (5.7-8.2) Albumin 3.4 g/dL (3.2-4.8) Vancomycin Level Trough 5.1 ug/mL (5-10) Lactic Acid Level 1.5 mmol/L (0.4-2.0) Ammonia 20 umol/L (11-32) Thyroid Stimulating Hormone (TSH) 2.30 uIU/mL (0.55-4.78) Free Thyroxine (T4) Calculated 1.17 ng/dL (0.89-1.76) Differential Total Cells Counted 100.0 (100) Neutrophils % (Manual) 91 (37.0-80.0) Band Neutrophils % (Manual) 0 Lymphocytes % (Manual) 5 (10.0-50.0) Monocytes % (Manual) 4 (0-12) Eosinophils % (Manual) 0 (0-7) Basophils % (Manual) 0 (0.0-2.0) Metamyelocytes % (manual) 0 Myelocytes % (Manual) 0 Promyelocytes % (Manual) 0 Blast Cells % (Manual) 0 Reactive Lymphocytes 0 Platelet Estimate Adequate Direct Bilirubin 0.2 mg/dL (<0.3) Prothrombin Time 12.4 sec (9.3-11.8) Prothrombin Time INR 1.19 (0.9-1.15) Activated Partial Thromboplast Time 32.7 SEC (24.5-34.5) D-Dimer, Quantitative 0.73 mg/L FEU (0.0-0.49) Vitamin B12 Level 364 pg/mL (211-911) Folic Acid 17.52 ng/mL (>5.38) Test 06/03/24 11:51 06/03/24 10:10 06/03/24 09:09 06/02/24 18:27 Blood Gas Specimen Type Arterial Blood Gas Sample Site Right radial Blood Gas Patient Temperature 37.0 Arterial Blood Date Drawn [id number] Arterial Blood pH 7.502 (7.350-7.450) Arterial Blood Partial Pressure CO2 29.2 mmHg (35.0-48.0) Arterial Blood Partial Pressure O2 71.7 mmHg (83.0-108.0) Arterial Blood HCO3 22.4 mmol/L (21.0-28.0) Arterial Blood Oxygen Saturation 94.6 % (94.0-98.0) Arterial Blood Base Excess 0.1 mmol/L (-2.0-3.0) Arterial Blood Oxyhemoglobin 93.7 % (94.0-98.0) Arterial Blood Carboxyhemoglobin 0.6 % (0.5-1.5) Arterial Blood Methemoglobin 0.4 % (0.0-1.5) Chuy Test Yes Blood Gas Total Hemoglobin 12.30 g/dL (13.5-17.5) Blood Gas Modality Room air FiO2 % 21.0 Influenza Type A Antigen Negative (Negative) Influenza Type B Antigen Negative (Negative) SARS-CoV-2 Antigen (Rapid) Negative (NEGATIVE) Magnesium Level 1.8 mg/dL (1.6-2.6) POC Glucose 104 mg/dl (70-106) Test 06/02/24 18:12 Urine Color Yellow (Yellow) Urine Clarity Turbid (Clear) Urine pH 5.5 (5.0-9.0) Urine Specific [place] 1.026 (1.001-1.035) Urine Protein 1+ (Negative) Urine Ketones Negative (Negative) Urine Blood 3+ /uL (Negative) Urine Nitrite Negative (Negative) Urine Bilirubin Negative (Negative) Urine Urobilinogen 3 mg/dL (Negative) Urine Leukocyte Esterase 3+ /uL (Negative) Urine RBC 309 /hpf (0 - 3) Urine Microscopic WBC 74 /HPF (0-3) Urine Squamous Epithelial Cells Few /hpf (<5) Urine Bacteria Few /hpf (None Seen) Urine Glucose Trace mg/dL (Normal) Other Laboratory Tests 06/06/24 15:25 Brief Hx & Hospital Course: This is a 79-year-old male with past medical history of hypertension, CVA (2 previous incident, 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 Per patient's , at baseline he can not speak properly due to previous CVA leading to motor aphasia, but has recently been more altered since 3 days. She also reports of urinary incontinence, generalized weakness and decreased oral intake. One day back he was taken to the [facility], was diagnosed with UTI and was discharged with Keflex and urine catheter in-situ, but the patient condition got worsened which prompted this visit. PMHx: Hypertension, CVA, status post [place], COPD PSHx: Status post maker (patient is does not know although the reason of pacemaker) Family history: Noncontributory Social history: Current smoker, ambulatory at baseline, we lives with the family at home. Home medication: Does not take any medicine Allergic history: No known allergy Hospital course: Patient was admitted at the line of encephalopathy secondary to UTI/sepsis. Patient was given empiric antibiotic of vancomycin, meropenem, IV fluid, urine culture growth no bacteria. During hospital vision medicine were continued, and patient was given breathing treatment p.r.n.. During hospital admission physiotherapy was also performed. On the patient was feeling better since admission. The plan discussed with the patient the patient discharged home. Discharge plan : Continue home meds Follow up with the PCP within 1 week of the discharge. Condition at Discharge: Stable Final Diagnosis/Problems List Acute metabolic encephalopathy, likely due to sepsis Sepsis, likely due to UTI/pneumonia Complicated UTI Pneumonia, likely due to Gram-positive Gram-negative bacteria/viral History of CVA, leading to motor aphasia History of hypertension COPD, stable Pulmonary nodule Gastroenteritis Current smoker Status post pacemaker History of polysubstance use including alcohol in the past Discharge Disposition: Home Discharge Instruct/Medications Diet: Cardiac 2g Na,low cholest Activity: No Restrictions, As Tolerated Follow Up/Referral: Follow up with the PCP within 1 week of the discharge Medications: Continue home meds Discharge Statement: "Patient was advised to return to the ER or call 911 if any headaches, dizziness, shortness of breath, chest pain, abdominal pain, bleeding, fevers, or worsening of medical condition. Patient was counseled about treatment plan, medications, possible side effects, patientverbalized understanding. All questions were answered to the best of my ability. This discharge took greater then 30 minutes in planning, reviewing documentation, counseling the patient, and discussing with other team members." ASSESSMENT ASSESSMENT Assessment Sepsis due to UTI HETAL MAXWELL Jun 07, 2024 13:35
== END 2024-06-07 15:21 | disposition home or self-care (01) | DRG 871 ==
LOC: EDBD 16:41 → ER 16:41 → OVERFLOW 21:47 → TELE-WESTW 06-03 02:17 → WEST WING 06-04 14:26
PROVIDERS: ADMIT Student in an Organized Health Care Education/Training Program; ATTEND Student in an Organized Health Care Education/Training Program
DX: A41.59 Other Gram-negative sepsis (principal); G93.41 Metabolic encephalopathy; J15.69 Pneumonia due to other Gram-negative bacteria; J15.9 Unspecified bacterial pneumonia; N39.0 Urinary tract infection, site not specified; Z59.00 Homelessness unspecified; J44.0 Chronic obstructive pulmonary disease with (acute) lower respiratory infection; F17.210 Nicotine dependence, cigarettes, uncomplicated; N40.0 Benign prostatic hyperplasia without lower urinary tract symptoms; K52.9 Noninfective gastroenteritis and colitis, unspecified; I10 Essential (primary) hypertension; Z79.899 Other long term (current) drug therapy; Z79.2 Long term (current) use of antibiotics; Z95.0 Presence of cardiac pacemaker; Z86.73 Personal history of transient ischemic attack (TIA), and cerebral infarction without residual deficits
CPT/HCPCS: 36415; 36600; 70450; 71045; 80048; 80053; 80202; 81001; 82140; 82248; 82565; 82607; 82746; 82805; 82962; 83605; 83735; 84439; 84443; 85007; 85025; 85027; 85379; 85610; 85730; 87040; 87081; 87086; 87426; 87804; 92610; 93005; 94640; 96365; 96366; 96368; 97110; 97116; 97162; 97530; 99291; G0378; J2185; J2470

== ENCOUNTER 2025-02-07 13:37 | Emergency (ER) | payer OTHER ==
[~2025-02-07] VITALS: Ht 177.8 cm; Wt 77.1 kg
[~2025-02-07 13:37] MED LIST changes: -AZIT500T66 PO; -CEPH250C PO; -CEPH500C PO; -CLIN1CAP70 PO; -METH4PAK PO
[2025-02-07] MEDS ORDERED: AZITHROMYCIN 500MG/250ML 250 ML IV ONE (14:45)
--- NOTE | 2025-02-07 14:53 | ED.PDOC ---
SOB-HPI HPI Comments This is a 80 year old male presenting to the ED with chief complaint of SOB. Patient reports that he has been experiencing SOB with associated cough and chest congestion for the past 3 days, worsening over time. Patient denies any fever, chills, back pain, N/V, headache, or hemoptysis. Chief Complaint: Cough Time Seen by MD: 14:51 Primary Care Provider: unknown Reviewed notes: Nurses Notes, Medications, Allergies Information Source: Patient Mode of Arrival: Ambulatory Severity: Moderate Timing: Days Duration: Since onset Context: At Rest PE Risk Factors: None History of: None Prehospital treatment: None Modifying Factors: Nothing Associated Signs and Symptoms: Cough If cough with SOB: Non-Productive Past Medical History PAST MEDICAL HISTORY: CVA Surgical History: Pacemaker Family History Family History: Reviewed,noncontributory to illness, Unobtainable Social History Smoker: Cigarettes, Greater Than 1 Pack/Day Alcohol: Heavy Drugs: Marijuana, Methamphetamine Lives In: Homeless Constitutional: denies: chills, diaphoresis, fatigue, fever, malaise, sweats, weakness, others EENTM: denies: blurred vision, double vision, ear bleeding, ear discharge, ear drainage, ear pain, ear ringing, eye pain, eye redness, hearing loss, mouth pain, mouth swelling, nasal discharge, nose bleeding, nose congestion, nose pain, photophobia, tearing, throat pain, throat swelling, voice changes, others Respiratory: reports: cough, shortness of breath; denies: hemoptysis, orthopnea, SOB at rest, SOB with excertion, stridor, wheezing, others Cardiovascular: denies: chest pain, dizzy spells, diaphoresis, Dyspnea on exertion, edema, irregular heart beat, left arm pain, lightheadedness, palpitations, PND, syncope, others Gastrointestinal: denies: abdomen distended, abdominal pain, blood streaked bowels, constipated, diarrhea, dysphagia, difficulty swallowing, hematemesis, melena, nausea, poor appetite, poor fluid intake, rectal bleeding, rectal pain, vomiting, others Genitourinary: denies: burning, dysuria, flank pain, frequency, hematuria, incontinence, penile discharge, penile sore, pain, testicle pain, testicle swelling, urgency, others Neurological: denies: dizziness, fainting, headache, left sided numbness, left sided weakness, numbness, paresthesia, pre-existing deficit, right sided n umbness, right sided weakness, seizure, speech problems, tingling, tremors, weakness, others Musculoskeletal: denies: back pain, gout, joint pain, joint swelling, muscle pain, muscle stiffness, neck pain, others Integumetry: denies: bruises, change in color, change in hair/nails, dryness, laceration, lesions, lumps, rash, wounds, others Allergic/Immunocompromised: denies: Difficulty Healing, Frequent Infections, Hives, Itching, others Hematologic/Lymphatic: denies: anemia, blood clots, easy bleeding, easy bruising, swollen glands, others Endocrine: denies: excessive hunger, excessive sweating, excessive thirst, excessive urination, flushing, intolerance to cold, intolerance to heat, unexplained weight gain, unexplained weight loss, others Psychiatric: denies: anxiety, bipolar disorder, depression, hopeless, panic disorder, schizophrenia, sleepless, suicidal, others All Other Systems: Reviewed and Negative Physical Exam General Appearance: Moderate Distress, Normal HEENT: Normal ENT Inspection, Pharynx Normal, TMs Normal Neck: Full Range of Motion, Non-Tender, Normal, Normal Inspection Respiratory: Chest Non-Tender, No Accessory Muscle Use, No Respiratory Distress, Other (Coarse breath sounds) Cardiovascular: No Edema, No JVD, No Murmur, No Gallop, Normal Peripheral Pulses, Regular Rate/Rhythm Breast Exam: Deferred Gastrointestinal: No Organomegaly, Non Tender, No Pulsatile Mass, Normal Bowel Sounds, Soft Genitalia: Deferred Pelvic: Deferred Rectal: Deferred Extremities: No calf tenderness, Normal capillary refill, Normal inspection, Normal range of motion, Non-tender, No pedal edema Musculoskeletal : Apperance: Normal Neurologic: Alert, business services assistant II-XII nml as Tested, No Motor Deficits, Normal Affect, Normal Mood, No Sensory Deficits Cerebellar Function: Normal Reflexes: Normal Skin: Dry, Normal Color, Warm Peripheral Pulses: 3+ Radial (R), 3+ Radial (L) Lymphatic: No Adenopathy Was a procedure done? Was a procedure done?: No Differential Dx Differential Diagnosis: Anxiety, Asthma, Bronchitis, CHF, COPD, Pneumonia, Respiratory Distress X-Ray, Labs, Meds, VS Vital Signs Date Time Temp Pulse Resp B/P (MAP) Pulse Ox O2 Delivery O2 Flow Rate FiO2 02/07/25 15:27 97.5 63 18 145/76 (99) 97 97.5 02/07/25 15:19 0 02/07/25 13:45 98.1 63 20 141/78 94 98.1 Lab Test 02/07/25 15:12 Range/Units White Blood Count Pending Red Blood Count Pending Hemoglobin Pending Hematocrit Pending Mean Corpuscular Volume Pending Mean Corpuscular Hemoglobin Pending Mean Corpuscular Hemoglobin Concent Pending Red Cell Distribution Width Pending Platelet Count Pending Mean Platelet Volume Pending Neutrophils (%) (Auto) Pending Lymphocytes (%) (Auto) Pending Monocytes (%) (Auto) Pending Basophils (%) (Auto) Pending Neutrophils # (Auto) Pending Lymphocytes # (Auto) Pending Monocytes # (Auto) Pending Sodium Level Pending Potassium Level Pending Chloride Level Pending Carbon Dioxide Level Pending Anion Gap Pending Blood Urea Nitrogen Pending Creatinine Pending Glomerular Filtration Rate Calc Pending BUN/Creatinine Ratio Pending Serum Glucose Pending Calcium Level Pending Troponin I High Sensitivity Pending Patient alert. Complaining of shortness a breath. Vitals stable. Answering questions. Continues to smoke cigarettes. Counseled patient on effects of smoking cigarettes for 15 minutes. Was given Rocephin. Was given azithromycin. Explained to the patient. Continue monitoring. Time of 1ST Reevaluation: 15:47 Reevaluation 1ST: Unchanged Patient Education/Counseling: Diagnosis, Treatment Family Education/Counseling: Diagnosis, Treatment SEPSIS Sepsis Screen Date sepsis recognized/suspect: Feb 07, 2025 Time Sepsis recognized/suspect: 1345 Recent Procedure: No On Antibiotic Therapy: No Respiratory Rate >20: No Heart Rate >90: No Temp<36 C (96.8 F) or >38.3 C: No SBP <90 or MAP <65 mmHG: No New Acute Mental Status Change: No Is the patient on CPAP, BIPAP,: No Physician Orders Troponin-I Hs (02/07/25 14:40) Complete Blood Count (02/07/25 14:40) Chest Portable (02/07/25 14:40) Urinalysis (02/07/25 14:40) Basic Metabolic Panel (02/07/25 14:40) Azithromycin 500mg/250ml (Zithromax 500m (02/07/25 14:45) Vital Signs Date Time Temp Pulse Resp B/P (MAP) Pulse Ox O2 Delivery O2 Flow Rate FiO2 02/07/25 15:27 97.5 63 18 145/76 (99) 97 97.5 02/07/25 15:19 0 02/07/25 13:45 98.1 63 20 141/78 94 98.1 Laboratory Tests Test 02/07/25 15:12 White Blood Count Pending Departure 1 Departure Time of Disposition: 15:33 Impression: Primary Impression: Pneumonia Qualified Codes: J18.9 - Pneumonia, unspecified organism Disposition: ADMITTED INPATIENT Admit to: Med Surg Condition: Guarded Critical Care Note Critical Care Time?: Yes (90 min-critical care time only) Stability Stability form required: No Heart Score Heart Score: Heart Score Response (Comments) Value History N/A 0 EKG N/A 0 Age N/A 0 Risk Factors N/A 0 Troponin N/A 0 Total 0 I personally scribed for INDER FAIR MD ([email or web address]) on 02/07/25 at 14:53. Electronically submitted by Moe Cornejo ([email or web address]). INDER FAIR MD Feb 07, 2025 14:53
[2025-02-07 15:31] LABS: Chloride 102 mmol/L (98-107); Hematocrit 42.2 % (41.0-53.0); Hemoglobin 14.5 g/dL (13.5-17.5); Mean Corpuscular Hemoglobin 32.0 pg (28.0-32.0); Mean Corpuscular Volume 93.1 fL (80.0-100.0); Nucleated Red Blood Cells % 0.1 %; Potassium 4.3 mmol/L (3.5-5.1); Sodium 140 mmol/L (136-145)
[2025-02-07 15:32] LABS: Anion Gap 8 (5-15); Carbon Dioxide 30 mmol/L (20-31)
[2025-02-07 15:33] LABS: Calcium 9.3 mg/dL (8.7-10.4)
[2025-02-07 15:37] LABS: Glucose 102 mg/dL (74-106)
[2025-02-07 15:38] LABS: BUN/Creatinine Ratio 12.0 (10.0-20.0); Blood Urea Nitrogen 14 mg/dL (9-23)
--- NOTE | 2025-02-07 16:53 | DVH ---
CHEST RADIOGRAPH INDICATION: sob TECHNIQUE: Single frontal view of the chest was obtained COMPARISON: XY CHEST PORTABLE on DOS: 06/02/24, XY CHEST PORTABLE on DOS: 04/20/24, XY CHEST PORTABLE on DOS: 02/02/23 FINDINGS: Lines and Tubes: Dual-chamber pacemaker in place with the pulse generator over the left chest. Lungs: No focal consolidation. Significant change from 06/01/2024 Pleura: No effusion. No pneumothorax. Cardiomediastinal contours: Unremarkable Bones: No acute osseous abnormality. IMPRESSION: 1. No acute cardiopulmonary disease. 2. No significant change from 06/02/2024.
[2025-02-07] MEDS ORDERED: ACETAMINOPHEN 325 MG TAB PO PRN (19:30)
[2025-02-07] MEDS ORDERED: ALBUTEROL SULF 2.5 MG/0.5ML(0.5%) NEB SOLN NEB PRN (19:30)
[2025-02-07] MEDS ORDERED: ONDANSETRON HCL 4 MG/2 ML VIAL IV PRN (19:30)
[2025-02-07 22:32] VITALS: BP 145/76; PULSE 63; RESP 16; TEMP 97.5; O2SAT 97
[2025-02-08] MEDS ORDERED: AZITHROMYCIN 500MG/250ML 250 ML IV SCH (10:00)
[2025-02-16] MEDS ORDERED: AZIT500T66 PO (17:01)
[2025-02-16] MEDS ORDERED: PRED20TA2 PO (17:05)
== END 2025-02-07 19:23 | disposition home or self-care (01) ==
LOC: ER 13:37 → UNDOADMIN 19:20 → OVERFLOW 19:20 → UNDODISIN 20:05
DX: J18.9 Pneumonia, unspecified organism (principal); F12.90 Cannabis use, unspecified, uncomplicated; F10.90 Alcohol use, unspecified, uncomplicated; F19.90 Other psychoactive substance use, unspecified, uncomplicated
CPT/HCPCS: 36415; 71045; 80048; 84484; 85025; 99291; 99292; G0378